=== PATIENT | female | born 1975 | race Caucasian/White ===

== ENCOUNTER → 2016-08-05 | Outpatient (REF) | payer OTHER ==
[2016-08-05 11:42] LABS: INR 1.68
== END ==
LOC: M SFHCCLAY 09:14
PROVIDERS: ATTEND Family Medicine
DX: Z86.718 Personal history of other venous thrombosis and embolism (principal); Z79.01 Long term (current) use of anticoagulants

== ENCOUNTER 2016-09-08 21:31 | Inpatient (IN) | payer OTHER ==
[~2016-09-08] VITALS: Ht 154.9 cm; Wt 91.5 kg
[2016-09-08] MEDS ORDERED: KETOROLAC 30 MG/ML VIAL (J1885) As Ordered ONE (23:23)
[2016-09-08 23:36] LABS: MEAN CORPUSCULAR HEMOGLOBIN 31.7 pg (27.0-33.0); MEAN CORPUSCULAR HGB CONC 34.4 g/dl (32.0-36.5); MEAN CORPUSCULAR VOLUME 92.1 fl (80.0-96.0); RED CELL DISTRIBUTION WIDTH 11.7 % (11.5-14.5); WHITE BLOOD COUNT 9.1 K/mm3 (4.0-10.0)
[2016-09-08 23:46] LABS: INR 2.56
[2016-09-09 00:23] LABS: ANION GAP 7 MEQ/L (8-16); BLOOD UREA NITROGEN 6 MG/DL (7-18); CALCIUM LEVEL 8.5 MG/DL (8.5-10.1); CARBON DIOXIDE LEVEL 25 MEQ/L (21-32); CHLORIDE LEVEL 111 MEQ/L (98-107); CREATININE FOR GFR 0.66 MG/DL (0.55-1.02); GLOMERULAR FILTRATION RATE > 60.0 (>58); GLUCOSE, FASTING 87 MG/DL (70-105); SODIUM LEVEL 143 MEQ/L (136-145)
[2016-09-09 01:10] LABS: AMPHETAMINES LEVEL URINE NEGATIVE (NEGATIVE); BENZODIAZEPINES URINE NEGATIVE (NEGATIVE); COCAINE METABOLITE URINE NEGATIVE (NEGATIVE); CONTROL LINE INT CTR LINE PRESENT; METHADONE URINE NEGATIVE (NEGATIVE); OPIATES URINE NEGATIVE (NEGATIVE); TRICYCLIC ANTIDEPRESS URINE NEGATIVE (NEGATIVE)
[2016-09-09] MEDS: LIDOCAINE 5% OINT 30 GM TOP SCH ×2 (01:30→11:13)
[2016-09-09] MEDS ORDERED: ONDANSETRON 4MG/2ML VIAL (J2405) IV PRN (01:30)
[2016-09-09] MEDS ORDERED: WARF-20 PO (01:34)
[2016-09-09] MEDS ORDERED: SIMV40TA2 PO (01:34)
[2016-09-09] MEDS ORDERED: WARF4TAB52 PO (01:35)
[2016-09-09] MEDS ORDERED: WARF-60 PO (01:35)
[2016-09-09] MEDS ORDERED: CLON1TAB PO (01:38)
[2016-09-09] MEDS ORDERED: CLON0.5T PO (01:38)
[2016-09-09] MEDS ORDERED: VENL75CA47 PO (01:38)
--- NOTE | 2016-09-09 01:39 | REP ---
Clinical: Chest pain. Pre admission . Technique: PA and lateral. Comparison: None . Findings: The mediastinum and cardiothymic silhouette are normal. The lung volumes are symmetric and normal. No acute consolidation, effusion, or pneumothorax. Skeletal structures are intact and normal for age. Impression: Normal chest x-ray. No focal consolidation. Signed by Reid Macedo MD 09/09/2016 01:31 A
[2016-09-09] MEDS ORDERED: VITA100066 PO (01:40)
[2016-09-09] MEDS ORDERED: VITA10002 PO (01:40)
[2016-09-09] MEDS ORDERED: BACL-67 PO (01:40)
[2016-09-09] MEDS ORDERED: ENAL10TA2 PO (01:40)
[2016-09-09] MEDS ORDERED: LR 1,000 ML IV SCH (01:45)
[2016-09-09] MEDS ORDERED: MORPHINE 2 MG/ML 1ML SYRINGE As Ordered ONE (02:30)
--- NOTE | 2016-09-09 02:56 | EDDOCDS ---
[facility]urse[facility] Name: Katrin Rice Age: 41 yrs Sex: Female : 1975 Arrival Date: 09/08/2016 Time: 21:31 Bed 12 Private MD: Diagnosis: Limitation of activities due to disability;Other chronic pain Presentation: 09/08 21:35 Presenting complaint: EMS states: Patient injured her back in 2008 moving a person in [facility] bed. She moved here from [place] as no longer seeing physician there. Now seeing Dr. Powell here through [facility]. States she was walking yesterday but unable to get out of bed today. States she has not eaten in 5 days. Pain is unbearable according to patient. History of herniated discs and fractured lower back as well as disc spurs. Acute neurological deficits are not present. Mechanism of Injury: No Mechanism of Injury. Adult Sepsis Screening: The patient does not have new or worsening altered mentation. Patient's respiratory rate is less than 22. Systolic blood pressure is greater than 100. Patient has a qSOFA score of 0- Negative Sepsis Screen. Suicide/Homicide risk assessment- the patient denies having any suicidal and/or homicidal ideations and does not present with any other emotional, behavioral or mental health complaints. Status: Patient is not a guest service team leader or dependent. Transition of care: patient was not received from another setting of care. 21:35 Acuity: BILL Level 3 [facility] 21:35 Method Of Arrival: Ambulance [facility] Triage Assessment: 21:45 General: Appears in no apparent distress, uncomfortable, well nourished, well groomed, [facility] Behavior is appropriate for age, cooperative. Pain: Location: left lower back, right lower back and left gluteal fold Pain currently is 10 out of 10 on a pain scale. Pain radiates to left leg. Pt Declines HIV testing. Neurological: Level of Consciousness is awake, alert, Oriented to person, place, time. Cardiovascular: Capillary refill < 3 seconds Heart tones S1 S2 present Rhythm is sinus rhythm No ectopy. Respiratory: Airway is patent Respiratory effort is even, unlabored, Respiratory pattern is regular, symmetrical, Breath sounds are clear bilaterally. Derm: Skin is intact, Skin is dry, Skin is pink, warm & dry. Skin temperature is warm. Musculoskeletal: Circulation, motion, and sensation intact Capillary refill < 3 seconds Range of motion limited in enitre lower back region. Injury Description: No known injury. SOFTWARE SUPPORT REPRESENTATIVE: 09/09 02:44 LMP 09/09/2016 nn1 Historical: - Allergies: Hydrocodone-Acetaminophen; Augmentin; Methadone; Nucynta; Prednisone; Fentanyl; Percocet; - Home Meds: 1. simvastatin 40 mg Oral tab once daily 2. warfarin 5 mg Oral tab 1 tab once daily 3. venlafaxine 75 mg oral cp24 1 cap once daily 4. clonazepam 0.5 mg Oral tab 1 tab 3 times per day 5. enalapril maleate 10 mg Oral tab 1 tab once daily 6. baclofen 20 mg Oral tab 1 tab 3 times per day - PMHx: Anxiety; Hypercholesterolemia; Chronic Back pain; fractured lower back; herniated discs; disc spurs; - Social history: Smoking status: Patient uses tobacco products, heavy tobacco smoker. No barriers to communication noted, The patient speaks fluent Swedish. - Family history: Not pertinent. - : The pt / caregiver states he / she is on anticoagulants: coumadin. Home medication list is obtained from the patient. - Exposure Risk Screening:: None identified. Screenin/06 21:49 Screening information is obtained from the patient. Fall risk: No risks identified. kas2 Assistance ADL's: requires no assistance with activities of daily living. Abuse/DV Screen: The patient / caregiver reports he/she is: not in a situation that causes fear, pain or injury. Nutritional screening: No deficits noted. Advance Directives: Currently, there is no health care proxy. There is no active DNR order. There is no living will. There is no Power of Oracle Solutions Architect. home support is adequate. Assessment: 21:48 General: See triage note. kas2 22:54 General: Appears in no apparent distress, uncomfortable, Behavior is appropriate for kas2 age, cooperative. Pain: Location: left leg and buttocks and left gluteal fold and right lower back and left lower back Pain currently is 10 out of 10 on a pain scale. Neurological: Level of Consciousness is awake, alert, Oriented to person, place, time. Respiratory: Airway is patent Respiratory effort is even, unlabored, Respiratory pattern is regular, symmetrical. Derm: Skin is intact, Skin is dry, Skin is pink, warm & dry. Skin temperature is warm. 09/09 00:11 General: Patient laying in bed. No apparent distress noted at this time. Patient states kas2 back pain is 5/10 when not moving but remains a 10/10 with movement. Call martinez within reach. Will continue to monitor.. 00:15 General: Dr. Kenny in to reassess patient at this time.. kas2 00:52 General: Performed I/O catheter on patient to obtain urine. Patient tolerated procedure [facility] well. Sent urine to lab.. 01:41 General: Appears in no apparent distress, uncomfortable, Behavior is appropriate for [facility] age, cooperative. Pain: Location: left leg and buttocks and left gluteal fold and right lower back and left lower back Pain currently is 6 out of 10 on a pain scale. Neurological: Level of Consciousness is awake, alert, Oriented to person, place, time. Respiratory: Airway is patent Respiratory effort is even, unlabored, Respiratory pattern is regular, symmetrical. Derm: Skin is intact, Skin is dry, Skin is pink, warm & dry. Skin temperature is warm. Musculoskeletal: Circulation, motion, and sensation intact Capillary refill < 3 seconds Range of motion limited in left leg and buttocks and left gluteal fold and right lower back and left lower back. 02:18 General: Patient sleeping at this time. No apparent distress. Appears comfortable. kas2 Airway patent and respiratory effort and even and unlabored. Call martinez within reach. Will continue to monitor.. Vital Signs: 09/08 21:42 BP 138 / 70; Pulse 70; Resp 18; Temp 98.4; Pulse Ox 98% ; Weight 77.11 kg; Height 5 ft. [facility] 1 in. (154.94 cm); Pain 10/10; 09/09 01:42 BP 142 / 75; Pulse 75; Resp 18; Temp 98.0(O); Pulse Ox 99% on R/A; Pain 6/10; kas2 02:26 BP 107 / 66; Pulse 56; Resp 18; Temp 98.5; Pulse Ox 95% on R/A; Pain 6/10; kas2 09/08 21:42 Body Mass Index 32.12 (77.11 kg, 154.94 cm) [facility] Vitals: 02:22 Log In Time N/A - ambulance arrival. [facility] ED Course: 09/08 21:32 Patient visited by McLear, Celeste, 8TH GRADE MATHEMATICS TEACHER. tmm1 21:32 Patient moved to Waiting tmm1 21:33 Vivian Mishra RN is Primary Nurse. tmm1 21:33 Ene Guido RN is Primary Nurse. tmm1 21:33 Samuel Kenny DO is Attending Physician. cs11 21:33 Patient visited by Samuel Kenny DO. cs11 21:33 Patient moved to 12 tmm1 21:40 Triage Initiated kas2 21:44 Patient visited by Ene Guido RN. kas2 21:49 Patient visited by Ene Guido RN. kas2 22:23 Patient visited by Ene Guido RN. kas2 22:55 Patient visited by Ene Guido RN. kas2 23:33 Pt & Aptt Sent. kas2 23:33 MED Profile Sent. kas2 23:33 CBC Sent. kas2 23:34 Patient visited by Ene Guido RN. kas2 23:34 Labs drawn. (by ED staff). Sent per order to lab. kas2 23:38 Patient visited by Ene Guido RN. kas2 23:57 Primary Nurse role handed off by Vivian Mishra RN jaden 02/07 00:12 Patient visited by Ene Guido RN. kas2 00:34 Patient visited by Ene Guido RN. kas2 00:53 Patient visited by Ene Guido RN. kas2 00:53 Urine Toxicology Sent. kas2 00:53 Urine collected. straight cath specimen. Urine specimen sent to lab. kas2 00:57 Nicky Rey is Hospitalizing Provider. cs11 01:40 Patient name changed from Katrin\S\R\S\Woodridge\S\ to Katrin\S\Josey\S\Woodridge. EDMS 01:40 [facility] Payment Agreement was scanned into [employer] and attached to record. pm4 01:42 Patient visited by Ene Guido RN. kas2 02:05 Chest, 1 View Returned. EDMS 02:22 The patient / caregiver is instructed regarding the plan of care and ED course. kas2 02:22 No IV's were initiated during this patient's visit. No procedures done that require kas2 assistance. 02:23 Patient visited by Ene Guido RN. kas2 02:24 Patient visited by Ene Guido RN. kas2 02:37 Inserted saline lock: 20 gauge in left antecubital area The patient tolerated the kas2 procedure well. 02:42 Patient visited by Ene Guido RN. kas2 Administered Medications: 09/08 23:33 Drug: ketorolac 60 mg [ketorolac 30 mg/mL (1 mL) injection solution (2 mL)] Route: IM; kas2 Site: right deltoid; Order Results: Lab Order: CBC; [facility] 09/08/16 23:31 Test: WHITE BLOOD COUNT; Value: 9.1; Range: 4.0-10.0; Units: K/mm3; Status: F Test: RED BLOOD COUNT; Value: 4.50; Range: 4.00-5.40; Units: M/mm3; Status: F Test: HEMOGLOBIN; Value: 14.3; Range: 12.0-16.0; Units: g/dl; Status: F Test: HEMATOCRIT; Value: 41.4; Range: 36.0-47.0; Units: %; Status: F Test: MEAN CORPUSCULAR VOLUME; Value: 92.1; Range: 80.0-96.0; Units: fl; Status: F Test: MEAN CORPUSCULAR HEMOGLOBIN; Value: 31.7; Range: 27.0-33.0; Units: pg; Status: F Test: MEAN CORPUSCULAR HGB CONC; Value: 34.4; Range: 32.0-36.5; Units: g/dl; Status: F Test: RED CELL DISTRIBUTION WIDTH; Value: 11.7; Range: 11.5-14.5; Units: %; Status: F Test: PLATELET COUNT, AUTOMATED; Value: 238; Range: 150-450; Units: k/mm3; Status: F Lab Order: MED Profile; [facility] 09/08/16 23:31 Test: GLUCOSE, FASTING; Value: 87; Range: 70-105; Units: MG/DL; Status: F Test: BLOOD UREA NITROGEN; Value: 6; Range: 7-18; Abnormal: Below low normal; Units: MG/DL; Status: F Test: CREATININE FOR GFR; Value: 0.66; Range: 0.55-1.02; Units: MG/DL; Status: F Test: GLOMERULAR FILTRATION RATE; Value: > 60.0; Range: >58; Status: F Test: SODIUM LEVEL; Value: 143; Range: 136-145; Units: MEQ/L; Status: F Test: POTASSIUM SERUM; Value: 4.0; Range: 3.5-5.1; Units: MEQ/L; Status: F Test: CHLORIDE LEVEL; Value: 111; Range: 98-107; Abnormal: Above high normal; Units: MEQ/L; Status: F Test: CARBON DIOXIDE LEVEL; Value: 25; Range: 21-32; Units: MEQ/L; Status: F Test: ANION GAP; Value: 7; Range: 8-16; Abnormal: Below low normal; Units: MEQ/L; Status: F Test: CALCIUM LEVEL; Value: 8.5; Range: 8.5-10.1; Units: MG/DL; Status: F Test Note: ; Units are mL/min/1.73 m2 Chronic Kidney Disease Staging per NKF: Stage I & II GFR >=60 Normal to Mildly Decreased Stage III GFR 30-59 Moderately Decreased Stage IV GFR 15-29 Severely Decreased Stage V GFR <15 Very Little GFR Left ESRD GFR <15 on LEVELING MACHINE OPERATOR Lab Order: Pt & Aptt; SPEC'09/08/16 23:31 Test: PROTHROMBIN TIME; Value: 27.6; Range: 12.3-14.5; Abnormal: Above high normal; Units: SECONDS; Status: F Test: INR; Value: 2.56; Status: F Test: PARTIAL THROMBOPLASTIN TIME; Value: 40.5; Range: 26.6-37.1; Abnormal: Above high normal; Units: SECONDS; Status: F Test Note: ; THERAPUTIC HUMAN INR VALUES INDICATIONS NORMAL RANGES PROPHYLAXIS/TREATMENT OF: VENOUS THROMBOSIS 2.0-3.0 PULMONARY EMBOLISM 2.0-3.0 PREVENTION OF SYSTEMIC EMBOLISM FROM: TISSUE HEART VALVES 2.0-3.0 ACUTE MYOCARDIAL INFARCTION 2.0-3.0 VALVULAR HEART DISEASE 2.0-3.0 ATRIAL FIBRILLATION 2.0-3.0 MECHANICAL VALVES(HIGH RISK) 2.5-3.5 RECURRENT MYOCARDIAL INFARCTION 2.5-3.5 Lab Order: Urine Toxicology; SPEC'09/09/16 00:51 Test: AMPHETAMINES LEVEL URINE; Value: NEGATIVE; Range: NEGATIVE; Status: F Test: BARBITURATES URINE; Value: NEGATIVE; Range: NEGATIVE; Status: F Test: BENZODIAZEPINES URINE; Value: NEGATIVE; Range: NEGATIVE; Status: F Test: CANNABINOIDS URINE; Value: NEGATIVE; Range: NEGATIVE; Status: F Test: COCAINE METABOLITE URINE; Value: NEGATIVE; Range: NEGATIVE; Status: F Test: METHADONE URINE; Value: NEGATIVE; Range: NEGATIVE; Status: F Test: OPIATES URINE; Value: NEGATIVE; Range: NEGATIVE; Status: F Test: TRICYCLIC ANTIDEPRESS URINE; Value: NEGATIVE; Range: NEGATIVE; Status: F Test Note: ; ALL PRESUMPTIVE POSITIVE FINDINGS ARE UNCONFIRMED NORMAL VALUES THRESHOLD IN NG/ML AMPHETAMINES 1000 METHAMPHETAMINES 1000 BARBITURATES 300 BENZODIAZEPINES 300 CANNABINOIDS (THC) 50 COCAINE METABOLITE 300 METHADONE 300 OPIATES 300 PHENCYCLIDINE 25 TRICYCLIC ANTIDEPRESSANTS 1000 RESULTS ARE FOR MEDICAL PURPOSES ONLY. ALL URINE SPECIMENS WILL BE SAVED FOR 3 DAYS. IF CONFIRMATION OF A PRESUMPTIVE POSTIVE SCREEN RESULT IS DESIRED, CALL CHEMISTRY ([phone]) AND REQUEST URINE TO BE SENT TO REFERENCE LAB. FOR A LIST OF CLOSELY RELATED COMPOUNDS PLEASE CALL THE LAB. Lab Order: LIPASE; SPEC'M 09/08/16 23:31 Test: LIPASE; Value: 66; Range: 73-393; Abnormal: Below low normal; Units: U/L; Status: F Radiology Order: Chest, 1 View Test: Chest, 1 View REASON FOR EXAMINATION: admission; Clinical: Chest pain. Pre admission .; Technique: PA and lateral.; ; Comparison: None .; ; Findings:; The mediastinum and cardiothymic silhouette are normal. The lung volumes are; symmetric and normal. No acute consolidation, effusion, or pneumothorax.; Skeletal structures are intact and normal for age.; ; Impression:; Normal chest x-ray.; No focal consolidation.; ; ; Signed by; Reid Macedo MD 09/09/2016 01:31 A; Outcome: 09/09 00:58 Decision to Hospitalize by Provider. 11 02:21 Discharge Assessment: patient administered narcotics - no. The following High Risk [facility] Discharge criteria are identified: None. Admitted to Med/Surg accompanied by tech, via stretcher, with chart. Condition: stable. CT Study completed. Property :Personal belongings accompany Pt. 02:56 Patient left the ED. [facility] Signatures: Dispatcher [employer] EDMS Vandana Guzmán, 8TH GRADE MATHEMATICS TEACHER 8TH GRADE MATHEMATICS TEACHER Samuel Beltrán, DO DO cs11 Celeste Drew, 8TH GRADE MATHEMATICS TEACHER 8TH GRADE MATHEMATICS TEACHER tmm1 Kolton Bird,RN RN nn1 Ene Guido,RN RN kas2 Ezequiel Robles, Reg Reg pm4 MTDD
--- NOTE | 2016-09-09 02:56 | EDDOCDS ---
Physician Documentation [facility] Name: Katrni Rice Age: 41 yrs Sex: Female : 1975 Arrival Date: 09/08/2016 Time: 21:31 Bed 12 Private MD: Disposition: 09/09/16 00:58 Hospitalization ordered by Nicky Rey for Inpatient Admission. Preliminary diagnosis are Limitation of activities due to disability, Other chronic pain. - Bed requested for 5 Hart. - Status is Inpatient Admission. kas2 - Condition is Stable. - Problem is chronic. - Symptoms are unchanged. Historical: - Allergies: Hydrocodone-Acetaminophen; Augmentin; Methadone; Nucynta; Prednisone; Fentanyl; Percocet; - Home Meds: 1. simvastatin 40 mg Oral tab once daily 2. warfarin 5 mg Oral tab 1 tab once daily 3. venlafaxine 75 mg oral cp24 1 cap once daily 4. clonazepam 0.5 mg Oral tab 1 tab 3 times per day 5. enalapril maleate 10 mg Oral tab 1 tab once daily 6. baclofen 20 mg Oral tab 1 tab 3 times per day - PMHx: Anxiety; Hypercholesterolemia; Chronic Back pain; fractured lower back; herniated discs; disc spurs; - Social history: Smoking status: Patient uses tobacco products, heavy tobacco smoker. No barriers to communication noted, The patient speaks fluent Arabic. - Family history: Not pertinent. - : The pt / caregiver states he / she is on anticoagulants: coumadin. Home medication list is obtained from the patient. - Exposure Risk Screening:: None identified. LITHOGRAPH DESIGNER: 09/09 02:44 LMP 09/09/2016 nn1 Vital Signs: 09/08 21:42 BP 138 / 70; Pulse 70; Resp 18; Temp 98.4; Pulse Ox 98% ; Weight 77.11 kg / 170 lbs; kas2 Height 5 ft. 1 in. (154.94 cm); Pain 10/; 09/09 01:42 BP 142 / 75; Pulse 75; Resp 18; Temp 98.0(O); Pulse Ox 99% on R/A; Pain 6/10; kas2 02:26 BP 107 / 66; Pulse 56; Resp 18; Temp 98.5; Pulse Ox 95% on R/A; Pain 6/10; kas2 09/08 21:42 Body Mass Index 32.12 (77.11 kg, 154.94 cm) kas2 MDM: 09/08 23:20 ketorolac 60 mg IM once ordered. cs11 23:20 CBC Ordered. EDMS 23:20 MED Profile Ordered. EDMS 23:21 Pt & Aptt Ordered. EDMS 23:22 Chest, 1 View Ordered. EDMS 0207 00:28 Pt & Aptt Reviewed. cs11 00:28 CBC Reviewed. cs11 00:32 Urine Toxicology Ordered. EDMS 01:02 BED REQUEST+ADM ordered. EDMS 01:09 Financial registration complete. pm4 01:30 MRI Spine,Cervical without con Ordered. EDMS 01:31 MRI Spine,Thoracic without con Ordered. EDMS 01:31 MRI Spine, L.S. without con Ordered. EDMS 01:31 PHYSICAL THERAPY EVAL & TREAT ordered. EDMS 01:32 Admission / Observation Status ordered. EDMS 01:32 REGULAR DIET ordered. EDMS 01:40 LIPASE Ordered. EDMS 01:40 [facility] [place] Agreement was scanned into [employer] and attached to record. pm4 Administered Medications: 09/08 23:33 Drug: ketorolac 60 mg [ketorolac 30 mg/mL (1 mL) injection solution (2 mL)] Route: IM; kas2 Site: right deltoid; Signatures: Dispatcher [employer] [facility] Laura Conklin, RN RN km10 Samuel Kenny, DO cs11 Wagner Drewsa, SENIOR CONTROLS ANALYST SENIOR CONTROLS ANALYST tmm1 Ene Guido RN RN kas2 Ezequiel Rboles, Reg Reg pm4 The chart was reviewed and I authenticate all verbal orders and agree with the evaluation and treatment provided.Corrections: (The following items were deleted from the chart) 09/09 01:40 01:30 LIPASE ordered. EDMS EDMS Attachments: 01:40 [facility] [place] Agreement pm4 MTDD
[2016-09-09 03:00] VITALS: BP 139/69
[2016-09-09] MEDS: clonazePAM 1 MG TAB PO SCH ×3 (05:28→16:00)
[2016-09-09 06:00] VITALS: BP 118/74
--- NOTE | 2016-09-09 06:18 | ECGEPIP ---
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
[2016-09-09 07:07] LABS: MEAN CORPUSCULAR HEMOGLOBIN 31.9 pg (27.0-33.0); MEAN CORPUSCULAR HGB CONC 34.6 g/dl (32.0-36.5); MEAN CORPUSCULAR VOLUME 92.3 fl (80.0-96.0); RED CELL DISTRIBUTION WIDTH 11.9 % (11.5-14.5); WHITE BLOOD COUNT 9.2 K/mm3 (4.0-10.0)
[2016-09-09 07:12] LABS: INR 2.81
[2016-09-09 07:19] LABS: ANION GAP 8 MEQ/L (8-16); BLOOD UREA NITROGEN 7 MG/DL (7-18); CALCIUM LEVEL 8.2 MG/DL (8.5-10.1); CARBON DIOXIDE LEVEL 26 MEQ/L (21-32); CHLORIDE LEVEL 109 MEQ/L (98-107); CREATININE FOR GFR 0.64 MG/DL (0.55-1.02); GLOMERULAR FILTRATION RATE > 60.0 (>58); GLUCOSE, FASTING 93 MG/DL (70-105); POTASSIUM SERUM 3.6 MEQ/L (3.5-5.1); SODIUM LEVEL 143 MEQ/L (136-145)
[2016-09-09 09:00] VITALS: BP 95/55
[2016-09-09] MEDS: PANTOPRAZOLE 40MG TAB (PROTONIX) PO SCH (09:00)
[2016-09-09] MEDS ORDERED: ENALAPRIL MALEATE 10 MG TAB PO SCH (09:00)
[2016-09-09] MEDS: SENOKOT S TAB PO SCH ×2 (09:00→21:01)
--- NOTE | 2016-09-09 09:13 | HPE ---
DATE OF ADMISSION: 09/09/2016 PRIMARY CARE PROVIDER: Keaton Donovan MD ORTHOPEDIC SURGEON: Vance Gallardo MD CHIEF COMPLAINT: Back pain. HISTORY OF PRESENT ILLNESS: This is a 41-year-old female patient with underlying medical history of anxiety, dyslipidemia, hypertension, chronic lower back pain with herniated disc who presented with progressive worsening back pain. 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 Subsequently, she originally lived in [place] and has been seen by a doctor named Dr. Edward Martinez, and has also been seen by pain management by Dr. Jaime Acevedo as of November 2015. The pain management doctor for the patient has been arrested and subsequently patient was in the process of moving to [facility] in March and April. Subsequently, she was not able to get a pain management doctor in [place] but when she arrived near [place] in [place] she was referred to Dr. Vance Gallardo, orthopedic surgery and subsequently Dr. Vance Gallardo has referred the patient to pain management, Dr. Lundberg. The patient has not had a chance to see Dr. Lundberg yet but over the past two days the patient's pain has progressively been worsened. Baseline ambulating became minimal but over the past two days the pain was so bad that she was not able to ambulate, had poor by mouth intake, was on the bed for about 20 hours a day as per a friend. The patient reported left sided back pain, left sided lumbothoracic back pain that sometimes moves around involving her left buttocks and contributing to her left lower extremity weakness. The patient had a MRI done previously. Dr. Gallardo has stated that no surgical intervention is indicated in this case. Furthermore, the patient has a history of protein C deficiency with pulmonary embolus (PE) and deep venous thrombosis (DVT) and is on Coumadin chronically. The patient denies any fevers, does feel a chill. Denies any chest pain, pressure or discomfort. Denies any nausea or vomiting. The patient last received opiate August 26 from the emergency room and has not been using any street drugs for her pain. ALLERGIES: AUGMENTIN, FENTANYL, HYDROCODONE, ACETAMINOPHEN, PERCOCET, METHADONE, NUCYNTA and PREDNISONE. PAST MEDICAL HISTORY: 1. Protein C deficiency. 2. PE. 3. DVT. 4. Anxiety. 5. Dyslipidemia. 6. Chronic back pain. 7. Fracture of lower back. 8. Herniated disc. 9. Disc spur. PAST SURGICAL HISTORY: None. SOCIAL HISTORY: The patient smokes ten cigarettes per day for 25 years. No alcohol use. FAMILY HISTORY: Noncontributory. REVIEW OF SYSTEMS: Negative except for those mentioned in the history of present illness (HPI). The patient also reported gastric discomfort. HOME MEDICATION: - Zocor 40 mg by mouth daily - Coumadin 5 mg by mouth daily - Effexor 75 mg by mouth daily - clonazepam 0.5 mg by mouth three times a day - enalapril 10 mg by mouth daily - baclofen 20 mg by mouth three times a day PHYSICAL EXAMINATION: VITAL SIGNS: Blood pressure 138/70, pulse 70, respirations 18, temperature 98.4, pulse oximetry 98%. GENERAL: The patient is alert and oriented times three, in no acute distress. HEENT: Normocephalic atraumatic. PULMONARY: Bilaterally clear to auscultation. CARDIAC: Regular rate and rhythm, normal S1, S2. ABDOMEN: Soft, nontender, nondistended, positive bowel sounds. EXTREMITIES: No edema bilateral lower extremities. Left lower extremity slightly weaker possibly due to poor effort as well. BACK: Point tenderness along the left side of the thoracic and lumbar back. RECTAL TONE: Intact. Urine toxicology (U-TOX) negative. INR 2.56. LABORATORY DATA: WBC 9.1, hemoglobin 14.3, hematocrit 41.4, platelets 238. Chemistries: Sodium 143, potassium 4, chloride 111, bicarbonate 25, BUN 6, creatinine 0.66. Chest x-ray was within normal limits. ASSESSMENT AND PLAN: This is a 41-year-old female patient with underlying medical history of protein C deficiency, pulmonary embolus (PE), deep venous thrombosis (DVT), anxiety, dyslipidemia, chronic back pain with herniated disc who was admitted for progressive worsening back pain and inability to ambulate. PROBLEMS: 1. Progressive worsening lower back pain, inability to ambulate. The patient was previously evaluated as per patient by Dr. Vance Gallardo and as per patient Dr. Gallardo has mentioned there is no surgical intervention for the patient. Pain management consulted. Urinary toxicology is appreciated. I-STOP report has been forwarded with I-STOP reference number of [id number]. Followup erythrocyte sedimentation rate (ESR), C-reactive protein (CRP), MRI of the cervical, thoracic, lumbar spine. Pain management consulted. Lidocaine ointment, intravenous (IV) morphine for now. Continue baclofen. Further pain management recommendation as per pain management. 2. Anxiety. Continue home medication. Monitor for withdrawal. 3. Dyslipidemia. Continue statin. 4. Hypertension. Continue home medication. 5. History of protein C deficiency with deep venous thrombosis (DVT) and pulmonary embolus. Continue Coumadin. INR therapeutic. Continue to monitor. 6. DVT prophylaxis. The patient on Coumadin with therapeutic INR. DISPOSITION: Pending MRI, pain management, physical therapy.
[2016-09-09] MEDS: MORPHINE 2 MG/ML 1ML SYRINGE IV PRN ×3 (09:39→21:01)
[2016-09-09] MEDS: NICOTINE 7 MG/24 HR TRANSDERMAL TD SCH (11:12)
[2016-09-09] MEDS: BACLOFEN 10 MG TAB PO SCH ×3 (11:13→21:01)
[2016-09-09] MEDS: CYANOCOBALAMIN 500 MCG TAB PO SCH (11:13)
[2016-09-09] MEDS: VITAMIN D 1,000 INTERNATIONAL UNITS TABLET PO SCH (11:14)
[2016-09-09] MEDS ORDERED: SODIUM CHLORIDE 0.9% 1000 ML IV ONE ×3 (11:45→14:30)
[2016-09-09] MEDS ORDERED: WARFARIN SOD 4 MG TAB PO SCH (17:00)
[2016-09-09 21:00] VITALS: O2SAT 98
[2016-09-09] MEDS: SIMVASTATIN 40 MG TAB PO SCH (21:01)
[2016-09-09] MEDS: clonazePAM 0.5 MG TAB PO SCH (21:02)
[2016-09-09] MEDS: VENLAFAXINE **XR** 75MG CAPSULE PO SCH (21:02)
[2016-09-09 22:00] VITALS: BP 112/55
[2016-09-10] MEDS: MORPHINE 2 MG/ML 1ML SYRINGE IV PRN ×8 (02:02→21:33)
[2016-09-10] MEDS: clonazePAM 1 MG TAB PO SCH ×3 (04:42→16:35)
[2016-09-10 06:00] VITALS: BP 112/70
[2016-09-10 06:50] LABS: MEAN CORPUSCULAR HEMOGLOBIN 32.1 pg (27.0-33.0); MEAN CORPUSCULAR HGB CONC 34.1 g/dl (32.0-36.5); MEAN CORPUSCULAR VOLUME 94.2 fl (80.0-96.0); RED CELL DISTRIBUTION WIDTH 11.9 % (11.5-14.5); WHITE BLOOD COUNT 10.1 K/mm3 (4.0-10.0)
[2016-09-10 06:52] LABS: ANION GAP 7 MEQ/L (8-16); BLOOD UREA NITROGEN 12 MG/DL (7-18); CALCIUM LEVEL 8.3 MG/DL (8.5-10.1); CARBON DIOXIDE LEVEL 25 MEQ/L (21-32); CHLORIDE LEVEL 113 MEQ/L (98-107); CREATININE FOR GFR 0.65 MG/DL (0.55-1.02); GLOMERULAR FILTRATION RATE > 60.0 (>58); GLUCOSE, FASTING 107 MG/DL (70-105); MAGNESIUM LEVEL 1.9 MG/DL (1.8-2.4); SODIUM LEVEL 145 MEQ/L (136-145)
[2016-09-10 06:54] LABS: INR 1.78
--- NOTE | 2016-09-10 07:43 | IPN ---
DATE: 09/10/2016 Patient seen and examined at bedside. Chart has been reviewed. This morning, patient complains of a sore throat. No fever, no chills, no cough. No sinus tenderness or rhinorrhea or post nasal drip. She also continually complains of lower back pain around L2-L3 area with radiation down the left lower extremity to the knee described as sharp and "electricity like", on and off but persistent. Yesterday not permitting her to sleep more than 1-2 hours at night. She denies any constipation, urine retention. She denies any weakness in lower extremity. Complains of pain and difficulty ambulating secondary to pain. Temperature 96.5, pulse 52, respiratory rate 18, blood pressure 112/70, 98% on room air. Lungs are clear to auscultation, no wheezing, rales or rhonchi. Heart: S1, S2, sinus rhythm. Abdomen: Soft, nontender, nondistended, positive bowel sounds. Extremities: No cyanosis, clubbing or pitting edema. Neurologically, patient has point tenderness along the left side of the L2-L3 area. Straight leg test could not be performed due to severe pain. Left lower extremity is 4/5 motor function. Gait was not tested. Diminished sensation left lower extremity. Rectal tone was intact per Dr. Nicky Rey, on 09/09/2016. LAB DATA: CBC, metabolic panel have been reviewed. ASSESSMENT AND PLAN: This is a 41-year-old female with history of chronic back pain, protein C deficiency, pulmonary embolus (PE), deep venous thrombosis (DVT) , on chronic Coumadin, anxiety, dyslipidemia, herniated disc and disc spurring, presented to the emergency room with intractable back pain on 09/09/2016, admitted for pain control. She had been previously evaluated by Dr. Vance Gallardo , orthopedic surgery, who referred her to pain management, Dr. Lundberg. Patient has not seen Dr. Lundberg as the pain has worsened. Her previous pain management physician lives in [place] named Dr. Edward Martinez and Dr. Goodson November 2015 is moving to [place]. Patient has not had a physician managing her pain. CURRENT ISSUES: 1. Hypotension most likely secondary to pain medications, resolved with intravenous fluids. Patient has had no infectious etiology, has had no fever or increased white count. 2. Progressive worsening low back pain, inability to ambulate, intractable. Patient has an MRI of the cervical, thoracic, lumbar spine which could not be performed yesterday due to low blood pressure in the ED from medications. Will continue today. Patient has been referred to pain management in house. A second request will be made today. 3. Anxiety. Continue home medications. Monitor for withdrawals. 4. Dyslipidemia, on statin. 5. Hypertension, home medication. 6. History of protein C deficiency. 7. History of deep venous thrombosis (DVT), pulmonary embolus (PE) on Coumadin. INR was 2.77 yesterday. Current INR is 1.78. Will provide with bridge therapy with Lovenox and Coumadin. MTDD
[2016-09-10] MEDS: CYANOCOBALAMIN 500 MCG TAB PO SCH (08:02)
[2016-09-10] MEDS: BACLOFEN 10 MG TAB PO SCH ×3 (08:02→21:03)
[2016-09-10] MEDS: ENOXAPARIN 80 MG/0.8 ML SYRINGE (J1650) SC SCH ×3 (08:03→21:02)
[2016-09-10] MEDS: SENOKOT S TAB PO SCH ×2 (08:03→21:03)
[2016-09-10] MEDS: PANTOPRAZOLE 40MG TAB (PROTONIX) PO SCH (08:03)
[2016-09-10] MEDS: VITAMIN D 1,000 INTERNATIONAL UNITS TABLET PO SCH (08:03)
[2016-09-10] MEDS: LIDOCAINE 5% OINT 30 GM TOP SCH (08:04)
[2016-09-10] MEDS: NICOTINE 7 MG/24 HR TRANSDERMAL TD SCH (08:04)
[2016-09-10] MEDS ORDERED: CEPACOL LOZENGE PO ONE (08:15)
--- NOTE | 2016-09-10 11:44 | REP ---
MRI CERVICAL SPINE WITHOUT CONTRAST: HISTORY: Back pain. The examination is limited secondary to motion. A disc bulge is present at the C3-4 level. There is minimal effacement of the thecal sac without spinal cord compression. Bilateral uncinate process hypertrophy is present. This produces mild narrowing of the C3 neural foramina. A disc bulge is present at the C5-6 level. There is mild effacement of the thecal sac without spinal cord compression. Uncinate process hypertrophy is present on the right. This produces mild narrowing of the right C5 neural foramen. The left C5 neural foramen is patent. Uncinate process hypertrophy is present on the right at the C6-7 level. This produces mild narrowing of the right C6 neural foramen. The left C6 neural foramen is patent. There is no other disc bulge or herniation. The remaining neural foramina are patent. The spinal cord is normal in signal intensity. There is no intradural extramedullary lesion. Normal signal intensity is present in the cervical vertebral bodies. IMPRESSION: There is cervical spondylosis at the C3-4, C5-6 and C6-7 levels without spinal cord compression. Signed by Joshua Anderson MD 09/10/2016 11:53 A
--- NOTE | 2016-09-10 11:49 | REP ---
MRI THORACIC SPINE WITHOUT CONTRAST: HISTORY: Back pain. A disc bulge is present at the T9-10 level. There is minimal effacement of the thecal sac without spinal cord compression. The T9 neural foramina are patent. A disc bulge is present at the T10-11 level. There is hypertrophy of the ligamenta flava and posterior articulating facets. There is minimal effacement of the thecal sac without spinal cord compression. The T10 neural foramina are patent. A disc bulge is present at the T11-12 level. There is minimal effacement of the thecal sac without spinal cord compression. There is hypertrophy of the posterior articulating facets. The T11 neural foramina are patent. A disc bulge is present at the T12-L1 level. There is minimal effacement of the thecal sac without spinal cord compression. There is hypertrophy of the posterior articulating facets. The T12 neural foramina are patent. There is no other disc bulge or herniation. The remaining neural foramina are patent. The spinal cord is normal in signal intensity. There is no intradural extramedullary lesion. Increased signal intensity on T1 and T2-weighted images is present in the T10-T12 vertebral bodies. This represents fatty marrow replacement. Normal signal intensity is present in the remaining thoracic vertebral bodies. There is scoliosis of the upper and mid thoracic spine convex to the right and lower thoracic spine convex to the left. IMPRESSION: There are disc bulges at the T9-10 through T12-L1 levels without spinal cord compression. Signed by Joshua Anderson MD 09/10/2016 11:52 A
[2016-09-10] MEDS: CARBAMIDE PEROXIDE 6.5% OTIC SOLN 15ML AS SCH ×2 (11:55→21:07)
--- NOTE | 2016-09-10 12:25 | REP ---
MRI LUMBAR SPINE WITHOUT CONTRAST: HISTORY: Back pain. The examination is limited secondary to motion. Decreased signal intensity on T2-weighted images is present in the T12-L1 through L4-5 intervertebral discs. The discs are decreased in height. These findings are consistent with disc degeneration. A diffuse disc bulge is present at the L1-2 level. There is minimal compression of the thecal sac. There is hypertrophy of the posterior articulating facets. The L1 nerves exit the neural foramina without compression. A diffuse disc bulge is present at the L2-3 level. There is hypertrophy of the ligamenta flava and posterior articulating facets. These findings produce minimal central canal stenosis. There is compression of the right L2 nerve in the neural foramen. The left L2 nerve exits the neural foramen without compression. A diffuse disc bulge is present at the L3-4 level. There is hypertrophy of the ligamenta flava and posterior articulating facets. These findings produce mild central canal stenosis. There is compression of the L3 nerves in the neural foramina. A diffuse disc bulge is present at the L4-5 level. There is hypertrophy of the ligamenta flava and posterior articulating facets. These findings produce minimal central canal stenosis. There is compression of the left L4 nerve in the neural foramen. The right L4 nerve exits the neural foramen without compression. A diffuse disc bulge is present at the L5-S1 level. There is minimal compression of the thecal sac. There is hypertrophy of the posterior articulating facets. The L5 nerves exit the neural foramina without compression. The conus medullaris is normal in appearance terminating at the level of the T12-L1 intervertebral disc. Increased signal intensity on T1 and T2-weighted images is present in the T11 and T12 vertebral bodies. This represents fatty marrow replacement. Increased signal intensity on T2-weighted images is present in the end plates of the L1 through L4 vertebral bodies. This represents degenerative change. There is scoliosis of the lower thoracic and lumbar spine convex to the left. IMPRESSION: 1. Diffuse disc bulge at the L1-2 and L5-S1 levels with minimal thecal sac compression. 2. Minimal central canal stenosis at the L2-3 and L4-5 levels secondary to disc bulge, ligamentous and facet hypertrophy. There is compression of the right L2 and left L4 nerves in the neural foramina. 3. Mild central canal stenosis at the L3-4 level secondary to disc bulge, ligamentous and facet hypertrophy. There is compression of the L3 nerves in the neural foramina. Signed by Joshua Anderson MD 09/10/2016 12:28 P
[2016-09-10 14:00] VITALS: BP 140/72
[2016-09-10] MEDS ORDERED: WARFARIN SOD 1 MG TAB PO SCH (17:00)
[2016-09-10] MEDS ORDERED: WARFARIN SOD 5 MG TAB PO ONE ×2 (17:00)
[2016-09-10] MEDS ORDERED: WARFARIN SOD 3 MG TAB PO SCH (17:00)
--- NOTE | 2016-09-10 17:42 | CR ---
DATE OF CONSULTATION: 09/10/2016 CHIEF COMPLAINT: 1. Low back pain. 2. Bilateral leg pain. HISTORY OF PRESENT ILLNESS: Katrin is a 41-year-old female who has a long history of chronic back pain related to a work-related injury in 2008. 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 She was under care in [place] through pain management up until November of 2015. At that time, she was using morphine sulfate IR 30 mg up to five tablets a day. At that point in time, states she was able to live independently. Since stopping the medication, she has been unable to function independently and had to move to the area to live with her father. Finding that difficult as her father works during the day. Denies any use of narcotic pain medication since November. She has trialed multiple different opioid and non-opioid medications over the years with either adverse reaction or no improvement in pain. Rating pain level as a 7/10. Pain is mainly in the left back area. She does report radiation into the right and left legs bilaterally. Describes pain as burning. The patient is tearful during the interview and afraid that she is not ever going to be able to return to independent living. To complicate matters, she has a factor C deficiency blood dyscrasia which prevents her from any interventional therapy or surgical intervention. PAST MEDICAL HISTORY: 1. Protein C deficiency. 2. Pulmonary embolism (PE), deep venous thrombosis (DVT). 3. Anxiety. 4 Dyslipidemia. 5. Chronic back pain. 6. Fracture of low back. 7. Herniated disc spur. SURGICAL HISTORY: None. SOCIAL HISTORY: Smokes 10 cigarettes a day for the past 25 years. Denies alcohol use. Does report occasional use of marijuana. Denies use of cocaine. Denies aberrant use of opioid pain medication. Has limited support of her father and a few friends locally. She is not from this area originally. Denies suicidal attempts. Does report that her depression is so bad due to uncontrolled pain that she would sometimes rather be , although she has no active plans to hurt herself. FAMILY HISTORY: Noncontributory. ALLERGIES: 1. OXYCODONE. 2. METHADONE. 3. HYDROCODONE. 4. NUCYNTA. 5. FENTANYL. 6. ACETAMINOPHEN. PHYSICAL EXAMINATION: GENERAL: Awake, alert, pleasant. VITAL SIGNS: Temperature 96.5, pulse 52, respiratory rate 18, blood pressure 112/70, oxygen saturation 98% on room air. CARDIAC: S1, S2. Normal rate and rhythm. RESPIRATORY: Lung sounds are clear. Respirations nonlabored. INSPECTION OF SPINE: Marked scoliotic hump left lower thoracic, which is tender with palpation. Reports tenderness over the lower thoracic and lumbosacral (LS) axis. Reports tenderness over the LS paraspinals. The patient stands unassisted with use of walker. LOWER EXTREMITIES: No swelling noted. Warm to touch. NEUROMUSCULAR: Muscle strength of the lower extremities 3/5 bilaterally. ASSESSMENT: 1. Low back pain. 2. Lumbar disc displacement with radiculopathy. PLAN: After a lengthy discussion with patient, I have agreed to take her on as a pain medicine management patient at the pain center at [facility]. We have given her an appointment for September 29, at 10:30 a.m. Today I have ordered MSIR 15 mg three times a day, and Lyrica 100 mg twice a day. Continue intravenous (IV) morphine 2 mg as needed for severe breakthrough pain episodes of greater than 8/10 visual analogue scale (VAS). Please be advised that we will not be prescribing medicine at discharge and plans are to assume narcotic agreement with patient at her initial visit at our clinic on September 29. Thank you for allowing us to participate in the care of your patient, Katrin Rice. If you have any questions or concerns, please do not hesitate to contact us. [facility]
[2016-09-10 21:00] VITALS: O2SAT 95
[2016-09-10] MEDS: SIMVASTATIN 40 MG TAB PO SCH (21:02)
[2016-09-10] MEDS: VENLAFAXINE **XR** 75MG CAPSULE PO SCH (21:02)
[2016-09-10] MEDS: PREGABALIN 100 MG CAP (LYRICA) PO SCH (21:02)
[2016-09-10] MEDS: clonazePAM 0.5 MG TAB PO SCH (21:02)
[2016-09-10] MEDS: MORPHINE 30 MG TAB **MSIR PO SCH (21:04)
[2016-09-10 22:00] VITALS: BP 123/76
--- NOTE | 2016-09-11 03:57 | EDDOCDS ---
Nurse's Notes [facility] Name: Katrin Rice Age: 41 yrs Sex: Female : 1975 Arrival Date: 09/08/2016 Time: 21:31 Bed 12 Private MD: Diagnosis: Limitation of activities due to disability;Other chronic pain Presentation: 09/08 21:35 Presenting complaint: EMS states: Patient injured her back in 2008 moving a person in [facility] bed. She moved here from [place] as no longer seeing physician there. Now seeing Dr. Powell here through [facility]. States she was walking yesterday but unable to get out of bed today. States she has not eaten in 5 days. Pain is unbearable according to patient. History of herniated discs and fractured lower back as well as disc spurs. Acute neurological deficits are not present. Mechanism of Injury: No Mechanism of Injury. Adult Sepsis Screening: The patient does not have new or worsening altered mentation. Patient's respiratory rate is less than 22. Systolic blood pressure is greater than 100. Patient has a qSOFA score of 0- Negative Sepsis Screen. Suicide/Homicide risk assessment- the patient denies having any suicidal and/or homicidal ideations and does not present with any other emotional, behavioral or mental health complaints. 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 Transition of care: patient was not received from another setting of care. 21:35 Acuity: BILL Level 3 [facility] 21:35 Method Of Arrival: Ambulance [facility] Triage Assessment: 21:45 General: Appears in no apparent distress, uncomfortable, well nourished, well groomed, [facility] Behavior is appropriate for age, cooperative. Pain: Location: left lower back, right lower back and left gluteal fold Pain currently is 10 out of 10 on a pain scale. Pain radiates to left leg. Pt Declines HIV testing. Neurological: Level of Consciousness is awake, alert, Oriented to person, place, time. Cardiovascular: Capillary refill < 3 seconds Heart tones S1 S2 present Rhythm is sinus rhythm No ectopy. Respiratory: Airway is patent Respiratory effort is even, unlabored, Respiratory pattern is regular, symmetrical, Breath sounds are clear bilaterally. Derm: Skin is intact, Skin is dry, Skin is pink, warm & dry. Skin temperature is warm. Musculoskeletal: Circulation, motion, and sensation intact Capillary refill < 3 seconds Range of motion limited in enitre lower back region. Injury Description: No known injury. PENSION AGENT: 09/09 02:44 LMP 09/09/2016 nn1 Historical: - Allergies: Hydrocodone-Acetaminophen; Augmentin; Methadone; Nucynta; Prednisone; Fentanyl; Percocet; - Home Meds: 1. simvastatin 40 mg Oral tab once daily 2. warfarin 5 mg Oral tab 1 tab once daily 3. venlafaxine 75 mg oral cp24 1 cap once daily 4. clonazepam 0.5 mg Oral tab 1 tab 3 times per day 5. enalapril maleate 10 mg Oral tab 1 tab once daily 6. baclofen 20 mg Oral tab 1 tab 3 times per day - PMHx: Anxiety; Hypercholesterolemia; Chronic Back pain; fractured lower back; herniated discs; disc spurs; - Social history: Smoking status: Patient uses tobacco products, heavy tobacco smoker. No barriers to communication noted, The patient speaks fluent Montenegrin. - Family history: Not pertinent. - : The pt / caregiver states he / she is on anticoagulants: coumadin. Home medication list is obtained from the patient. - Exposure Risk Screening:: None identified. Screenin/06 21:49 Screening information is obtained from the patient. Fall risk: No risks identified. kas2 Assistance ADL's: requires no assistance with activities of daily living. Abuse/DV Screen: The patient / caregiver reports he/she is: not in a situation that causes fear, pain or injury. Nutritional screening: No deficits noted. Advance Directives: Currently, there is no health care proxy. There is no active DNR order. There is no living will. There is no Power of Teaching Supervisor. home support is adequate. Assessment: 21:48 General: See triage note. kas2 22:54 General: Appears in no apparent distress, uncomfortable, Behavior is appropriate for kas2 age, cooperative. Pain: Location: left leg and buttocks and left gluteal fold and right lower back and left lower back Pain currently is 10 out of 10 on a pain scale. Neurological: Level of Consciousness is awake, alert, Oriented to person, place, time. Respiratory: Airway is patent Respiratory effort is even, unlabored, Respiratory pattern is regular, symmetrical. Derm: Skin is intact, Skin is dry, Skin is pink, warm & dry. Skin temperature is warm. 09/09 00:11 General: Patient laying in bed. No apparent distress noted at this time. Patient states kas2 back pain is 5/10 when not moving but remains a 10/10 with movement. Call martinez within reach. Will continue to monitor.. 00:15 General: Dr. Kenny in to reassess patient at this time.. kas2 00:52 General: Performed I/O catheter on patient to obtain urine. Patient tolerated procedure [facility] well. Sent urine to lab.. 01:41 General: Appears in no apparent distress, uncomfortable, Behavior is appropriate for [facility] age, cooperative. Pain: Location: left leg and buttocks and left gluteal fold and right lower back and left lower back Pain currently is 6 out of 10 on a pain scale. Neurological: Level of Consciousness is awake, alert, Oriented to person, place, time. Respiratory: Airway is patent Respiratory effort is even, unlabored, Respiratory pattern is regular, symmetrical. Derm: Skin is intact, Skin is dry, Skin is pink, warm & dry. Skin temperature is warm. Musculoskeletal: Circulation, motion, and sensation intact Capillary refill < 3 seconds Range of motion limited in left leg and buttocks and left gluteal fold and right lower back and left lower back. 02:18 General: Patient sleeping at this time. No apparent distress. Appears comfortable. kas2 Airway patent and respiratory effort and even and unlabored. Call martinez within reach. Will continue to monitor.. Vital Signs: 09/08 21:42 BP 138 / 70; Pulse 70; Resp 18; Temp 98.4; Pulse Ox 98% ; Weight 77.11 kg; Height 5 ft. [facility] 1 in. (154.94 cm); Pain 10/10; 09/09 01:42 BP 142 / 75; Pulse 75; Resp 18; Temp 98.0(O); Pulse Ox 99% on R/A; Pain 6/10; kas2 02:26 BP 107 / 66; Pulse 56; Resp 18; Temp 98.5; Pulse Ox 95% on R/A; Pain 6/10; kas2 09/08 21:42 Body Mass Index 32.12 (77.11 kg, 154.94 cm) [facility] Vitals: 02:22 Log In Time N/A - ambulance arrival. [facility] ED Course: 09/08 21:32 Patient visited by McLear, Celeste, CATERING ADMINISTRATIVE ASSISTANT. tmm1 21:32 Patient moved to Waiting tmm1 21:33 Vivian Mishra RN is Primary Nurse. tmm1 21:33 Ene Guido RN is Primary Nurse. tmm1 21:33 Samuel Kenny DO is Attending Physician. cs11 21:33 Patient visited by Samuel Kenny DO. cs11 21:33 Patient moved to 12 tmm1 21:40 Triage Initiated kas2 21:44 Patient visited by Ene Guido RN. kas2 21:49 Patient visited by Ene Guido RN. kas2 22:23 Patient visited by Ene Guido RN. kas2 22:55 Patient visited by Ene Guido RN. kas2 23:33 Pt & Aptt Sent. kas2 23:33 MED Profile Sent. kas2 23:33 CBC Sent. kas2 23:34 Patient visited by Ene Guido RN. kas2 23:34 Labs drawn. (by ED staff). Sent per order to lab. kas2 23:38 Patient visited by Ene Guido RN. kas2 23:57 Primary Nurse role handed off by Vivian Mishra RN jaden 02/07 00:12 Patient visited by Ene Guido RN. kas2 00:34 Patient visited by Ene Guido RN. kas2 00:53 Patient visited by Ene Guido RN. kas2 00:53 Urine Toxicology Sent. kas2 00:53 Urine collected. straight cath specimen. Urine specimen sent to lab. kas2 00:57 Nicky Rey is Hospitalizing Provider. cs11 01:40 Patient name changed from Katrin\S\R\S\[place]\S\ to Katrin\S\[place]y\S\[place]. EDMS 01:40 [facility] Payment Agreement was scanned into [employer] and attached to record. pm4 01:42 Patient visited by Ene Guido RN. kas2 02:05 Chest, 1 View Returned. EDMS 02:22 The patient / caregiver is instructed regarding the plan of care and ED course. kas2 02:22 No IV's were initiated during this patient's visit. No procedures done that require kas2 assistance. 02:23 Patient visited by Ene Guido RN. kas2 02:24 Patient visited by Ene Guido RN. kas2 02:37 Inserted saline lock: 20 gauge in left antecubital area The patient tolerated the kas2 procedure well. 02:42 Patient visited by Ene Guido RN. kas2 11:12 T-Sheet-- Draft Copy was scanned into [employer] and attached to record. gb 09/10 09:05 PCR was scanned into [employer] and attached to record. gb Administered Medications: 09/08 23:33 Drug: ketorolac 60 mg [ketorolac 30 mg/mL (1 mL) injection solution (2 mL)] Route: IM; kas2 Site: right deltoid; Order Results: Lab Order: CBC; SPEC'M 09/08/16 23:31 Test: WHITE BLOOD COUNT; Value: 9.1; Range: 4.0-10.0; Units: K/mm3; Status: F Test: RED BLOOD COUNT; Value: 4.50; Range: 4.00-5.40; Units: M/mm3; Status: F Test: HEMOGLOBIN; Value: 14.3; Range: 12.0-16.0; Units: g/dl; Status: F Test: HEMATOCRIT; Value: 41.4; Range: 36.0-47.0; Units: %; Status: F Test: MEAN CORPUSCULAR VOLUME; Value: 92.1; Range: 80.0-96.0; Units: fl; Status: F Test: MEAN CORPUSCULAR HEMOGLOBIN; Value: 31.7; Range: 27.0-33.0; Units: pg; Status: F Test: MEAN CORPUSCULAR HGB CONC; Value: 34.4; Range: 32.0-36.5; Units: g/dl; Status: F Test: RED CELL DISTRIBUTION WIDTH; Value: 11.7; Range: 11.5-14.5; Units: %; Status: F Test: PLATELET COUNT, AUTOMATED; Value: 238; Range: 150-450; Units: k/mm3; Status: F Lab Order: MED Profile; SPEC'M 09/08/16 23:31 Test: GLUCOSE, FASTING; Value: 87; Range: 70-105; Units: MG/DL; Status: F Test: BLOOD UREA NITROGEN; Value: 6; Range: 7-18; Abnormal: Below low normal; Units: MG/DL; Status: F Test: CREATININE FOR GFR; Value: 0.66; Range: 0.55-1.02; Units: MG/DL; Status: F Test: GLOMERULAR FILTRATION RATE; Value: > 60.0; Range: >58; Status: F Test: SODIUM LEVEL; Value: 143; Range: 136-145; Units: MEQ/L; Status: F Test: POTASSIUM SERUM; Value: 4.0; Range: 3.5-5.1; Units: MEQ/L; Status: F Test: CHLORIDE LEVEL; Value: 111; Range: 98-107; Abnormal: Above high normal; Units: MEQ/L; Status: F Test: CARBON DIOXIDE LEVEL; Value: 25; Range: 21-32; Units: MEQ/L; Status: F Test: ANION GAP; Value: 7; Range: 8-16; Abnormal: Below low normal; Units: MEQ/L; Status: F Test: CALCIUM LEVEL; Value: 8.5; Range: 8.5-10.1; Units: MG/DL; Status: F Test Note: ; Units are mL/min/1.73 m2 Chronic Kidney Disease Staging per NKF: Stage I & II GFR >=60 Normal to Mildly Decreased Stage III GFR 30-59 Moderately Decreased Stage IV GFR 15-29 Severely Decreased Stage V GFR <15 Very Little GFR Left ESRD GFR <15 on JEWELRY CONSULTANT Lab Order: Pt & Aptt; SPEC'M 09/08/16 23:31 Test: PROTHROMBIN TIME; Value: 27.6; Range: 12.3-14.5; Abnormal: Above high normal; Units: SECONDS; Status: F Test: INR; Value: 2.56; Status: F Test: PARTIAL THROMBOPLASTIN TIME; Value: 40.5; Range: 26.6-37.1; Abnormal: Above high normal; Units: SECONDS; Status: F Test Note: ; THERAPUTIC HUMAN INR VALUES INDICATIONS NORMAL RANGES PROPHYLAXIS/TREATMENT OF: VENOUS THROMBOSIS 2.0-3.0 PULMONARY EMBOLISM 2.0-3.0 PREVENTION OF SYSTEMIC EMBOLISM FROM: TISSUE HEART VALVES 2.0-3.0 ACUTE MYOCARDIAL INFARCTION 2.0-3.0 VALVULAR HEART DISEASE 2.0-3.0 ATRIAL FIBRILLATION 2.0-3.0 MECHANICAL VALVES(HIGH RISK) 2.5-3.5 RECURRENT MYOCARDIAL INFARCTION 2.5-3.5 Lab Order: Urine Toxicology; SPEC'M 09/09/16 00:51 Test: AMPHETAMINES LEVEL URINE; Value: NEGATIVE; Range: NEGATIVE; Status: F Test: BARBITURATES URINE; Value: NEGATIVE; Range: NEGATIVE; Status: F Test: BENZODIAZEPINES URINE; Value: NEGATIVE; Range: NEGATIVE; Status: F Test: CANNABINOIDS URINE; Value: NEGATIVE; Range: NEGATIVE; Status: F Test: COCAINE METABOLITE URINE; Value: NEGATIVE; Range: NEGATIVE; Status: F Test: METHADONE URINE; Value: NEGATIVE; Range: NEGATIVE; Status: F Test: OPIATES URINE; Value: NEGATIVE; Range: NEGATIVE; Status: F Test: TRICYCLIC ANTIDEPRESS URINE; Value: NEGATIVE; Range: NEGATIVE; Status: F Test Note: ; ALL PRESUMPTIVE POSITIVE FINDINGS ARE UNCONFIRMED NORMAL VALUES THRESHOLD IN NG/ML AMPHETAMINES 1000 METHAMPHETAMINES 1000 BARBITURATES 300 BENZODIAZEPINES 300 CANNABINOIDS (THC) 50 COCAINE METABOLITE 300 METHADONE 300 OPIATES 300 PHENCYCLIDINE 25 TRICYCLIC ANTIDEPRESSANTS 1000 RESULTS ARE FOR MEDICAL PURPOSES ONLY. ALL URINE SPECIMENS WILL BE SAVED FOR 3 DAYS. IF CONFIRMATION OF A PRESUMPTIVE POSTIVE SCREEN RESULT IS DESIRED, CALL CHEMISTRY ([phone]) AND REQUEST URINE TO BE SENT TO REFERENCE LAB. FOR A LIST OF CLOSELY RELATED COMPOUNDS PLEASE CALL THE LAB. Lab Order: LIPASE; SPEC'M 09/08/16 23:31 Test: LIPASE; Value: 66; Range: 73-393; Abnormal: Below low normal; Units: U/L; Status: F Radiology Order: Chest, 1 View Test: Chest, 1 View REASON FOR EXAMINATION: admission; Clinical: Chest pain. Pre admission .; Technique: PA and lateral.; ; Comparison: None .; ; Findings:; The mediastinum and cardiothymic silhouette are normal. The lung volumes are; symmetric and normal. No acute consolidation, effusion, or pneumothorax.; Skeletal structures are intact and normal for age.; ; Impression:; Normal chest x-ray.; No focal consolidation.; ; ; Signed by; Reid Macedo MD 09/09/2016 01:31 A; Outcome: 09/09 00:58 Decision to Hospitalize by Provider. cs11 02:21 Discharge Assessment: patient administered narcotics - no. The following High Risk [facility] Discharge criteria are identified: None. Admitted to Med/Surg accompanied by tech, via stretcher, with chart. Condition: stable. CT Study completed. Property :Personal belongings accompany Pt. 02:56 Patient left the ED. kas2 Signatures: Dispatcher [employer] EDMS Kylie Hendrix, Reg Reg gb Arielle, Vandana, CATERING ADMINISTRATIVE ASSISTANT CATERING ADMINISTRATIVE ASSISTANT jaden Samuel Kenny, DO DO cs11 Rajendra, Celeste, CATERING ADMINISTRATIVE ASSISTANT CATERING ADMINISTRATIVE ASSISTANT tmm1 Kolton Bird,RN RN nn1 Ene Guido RN RN kas2 Ezequiel Robles, Reg Reg pm4 Chart Complete MTDD
--- NOTE | 2016-09-11 03:57 | EDDOCDS ---
Physician Documentation [facility] Name: Katrin Rice Age: 41 yrs Sex: Female : 1975 Arrival Date: 09/08/2016 Time: 21:31 Bed 12 Private MD: Disposition: 09/09/16 00:58 Hospitalization ordered by Nicky Rey for Inpatient Admission. Preliminary diagnosis are Limitation of activities due to disability, Other chronic pain. - Bed requested for 5 Hart. - Status is Inpatient Admission. kas2 - Condition is Stable. - Problem is chronic. - Symptoms are unchanged. Historical: - Allergies: Hydrocodone-Acetaminophen; Augmentin; Methadone; Nucynta; Prednisone; Fentanyl; Percocet; - Home Meds: 1. simvastatin 40 mg Oral tab once daily 2. warfarin 5 mg Oral tab 1 tab once daily 3. venlafaxine 75 mg oral cp24 1 cap once daily 4. clonazepam 0.5 mg Oral tab 1 tab 3 times per day 5. enalapril maleate 10 mg Oral tab 1 tab once daily 6. baclofen 20 mg Oral tab 1 tab 3 times per day - PMHx: Anxiety; Hypercholesterolemia; Chronic Back pain; fractured lower back; herniated discs; disc spurs; - Social history: Smoking status: Patient uses tobacco products, heavy tobacco smoker. No barriers to communication noted, The patient speaks fluent Maori. - Family history: Not pertinent. - : The pt / caregiver states he / she is on anticoagulants: coumadin. Home medication list is obtained from the patient. - Exposure Risk Screening:: None identified. TABLE GAMES FLOOR SUPERVISOR: 09/09 02:44 LMP 09/09/2016 nn1 Vital Signs: 09/08 21:42 BP 138 / 70; Pulse 70; Resp 18; Temp 98.4; Pulse Ox 98% ; Weight 77.11 kg / 170 lbs; kas2 Height 5 ft. 1 in. (154.94 cm); Pain 10/; 09/09 01:42 BP 142 / 75; Pulse 75; Resp 18; Temp 98.0(O); Pulse Ox 99% on R/A; Pain 6/10; kas2 02:26 BP 107 / 66; Pulse 56; Resp 18; Temp 98.5; Pulse Ox 95% on R/A; Pain 6/10; kas2 09/08 21:42 Body Mass Index 32.12 (77.11 kg, 154.94 cm) kas2 MDM: 09/08 23:20 ketorolac 60 mg IM once ordered. cs11 23:20 CBC Ordered. EDMS 23:20 MED Profile Ordered. EDMS 23:21 Pt & Aptt Ordered. EDMS 23:22 Chest, 1 View Ordered. EDMS 0207 00:28 Pt & Aptt Reviewed. cs11 00:28 CBC Reviewed. cs11 00:32 Urine Toxicology Ordered. EDMS 01:02 BED REQUEST+ADM ordered. EDMS 01:09 Financial registration complete. pm4 01:30 MRI Spine,Cervical without con Ordered. EDMS 01:31 MRI Spine,Thoracic without con Ordered. EDMS 01:31 MRI Spine, L.S. without con Ordered. EDMS 01:31 PHYSICAL THERAPY EVAL & TREAT ordered. EDMS 01:32 Admission / Observation Status ordered. EDMS 01:32 REGULAR DIET ordered. EDMS 01:40 LIPASE Ordered. EDMS 01:40 [facility] Agreement was scanned into [employer] and attached to record. pm4 11:12 T-Sheet-- Draft Copy was scanned into [employer] and attached to record. 09/10 09:05 PCR was scanned into [employer] and attached to record. gb Administered Medications: 09/08 23:33 Drug: ketorolac 60 mg [ketorolac 30 mg/mL (1 mL) injection solution (2 mL)] Route: IM; [facility] Site: right deltoid; Signatures: Dispatcher [employer] EDNC Kylie Hendrix, Reg Reg gb Laura Conklin RN RN [id number] Samuel Kenny DO DO cs11 Celeste Drew, VESSEL SLAGMAN VESSEL SLAGMAN tmm1 Ene Guido RN RN kas2 Ezequiel Robles, Reg Reg pm4 The chart was reviewed and I authenticate all verbal orders and agree with the evaluation and treatment provided.Corrections: (The following items were deleted from the chart) 09/09 01:40 01:30 LIPASE ordered. EDMS EDMS Attachments: 01:40 [facility] [place] Agreement pm4 11:12 T-Sheet-- Draft Copy gb Chart Complete MTDD
--- NOTE | 2016-09-11 03:57 | EDDOCDS ---
Physician Documentation [facility] Name: Katrin Rice Age: 41 yrs Sex: Female : 1975 Arrival Date: 09/08/2016 Time: 21:31 Bed 12 Private MD: Disposition: 09/09/16 00:58 Hospitalization ordered by Nicky Rey for Inpatient Admission. Preliminary diagnosis are Limitation of activities due to disability, Other chronic pain. - Bed requested for 5 Hart. - Status is Inpatient Admission. kas2 - Condition is Stable. - Problem is chronic. - Symptoms are unchanged. Historical: - Allergies: Hydrocodone-Acetaminophen; Augmentin; Methadone; Nucynta; Prednisone; Fentanyl; Percocet; - Home Meds: 1. simvastatin 40 mg Oral tab once daily 2. warfarin 5 mg Oral tab 1 tab once daily 3. venlafaxine 75 mg oral cp24 1 cap once daily 4. clonazepam 0.5 mg Oral tab 1 tab 3 times per day 5. enalapril maleate 10 mg Oral tab 1 tab once daily 6. baclofen 20 mg Oral tab 1 tab 3 times per day - PMHx: Anxiety; Hypercholesterolemia; Chronic Back pain; fractured lower back; herniated discs; disc spurs; - Social history: Smoking status: Patient uses tobacco products, heavy tobacco smoker. No barriers to communication noted, The patient speaks fluent Greenlandic. - Family history: Not pertinent. - : The pt / caregiver states he / she is on anticoagulants: coumadin. Home medication list is obtained from the patient. - Exposure Risk Screening:: None identified. [employer]: 09/09 02:44 LMP 09/09/2016 nn1 Vital Signs: 09/08 21:42 BP 138 / 70; Pulse 70; Resp 18; Temp 98.4; Pulse Ox 98% ; Weight 77.11 kg / 170 lbs; kas2 Height 5 ft. 1 in. (154.94 cm); Pain 10/; 09/09 01:42 BP 142 / 75; Pulse 75; Resp 18; Temp 98.0(O); Pulse Ox 99% on R/A; Pain 6/10; kas2 02:26 BP 107 / 66; Pulse 56; Resp 18; Temp 98.5; Pulse Ox 95% on R/A; Pain 6/10; kas2 09/08 21:42 Body Mass Index 32.12 (77.11 kg, 154.94 cm) kas2 MDM: 09/08 23:20 ketorolac 60 mg IM once ordered. cs11 23:20 CBC Ordered. EDMS 23:20 MED Profile Ordered. EDMS 23:21 Pt & Aptt Ordered. EDMS 23:22 Chest, 1 View Ordered. EDMS 0207 00:28 Pt & Aptt Reviewed. cs11 00:28 CBC Reviewed. cs11 00:32 Urine Toxicology Ordered. EDMS 01:02 BED REQUEST+ADM ordered. EDMS 01:09 Financial registration complete. pm4 01:30 MRI Spine,Cervical without con Ordered. EDMS 01:31 MRI Spine,Thoracic without con Ordered. EDMS 01:31 MRI Spine, L.S. without con Ordered. EDMS 01:31 PHYSICAL THERAPY EVAL & TREAT ordered. EDMS 01:32 Admission / Observation Status ordered. EDMS 01:32 REGULAR DIET ordered. EDMS 01:40 LIPASE Ordered. EDMS 01:40 [facility] Agreement was scanned into [employer] and attached to record. pm4 11:12 T-Sheet-- Draft Copy was scanned into [employer] and attached to record. 09/10 09:05 PCR was scanned into [employer] and attached to record. gb Administered Medications: 09/08 23:33 Drug: ketorolac 60 mg [ketorolac 30 mg/mL (1 mL) injection solution (2 mL)] Route: IM; [facility] Site: right deltoid; Signatures: Dispatcher [employer] EDCO Kylie Hendrix, Reg Reg gb Laura Conklin RN RN [id number] Samuel Kenny DO DO cs11 Celeste Drew, HEEL BUILDER HEEL BUILDER tmm1 Ene Guido RN RN kas2 Ezequiel Robles, Reg Reg pm4 The chart was reviewed and I authenticate all verbal orders and agree with the evaluation and treatment provided.Corrections: (The following items were deleted from the chart) 09/09 01:40 01:30 LIPASE ordered. EDMS EDMS Attachments: 01:40 [facility] [place] Agreement pm4 11:12 T-Sheet-- Draft Copy gb Chart Complete MTDD
[2016-09-11] MEDS: MORPHINE 2 MG/ML 1ML SYRINGE IV PRN ×5 (04:20→19:20)
[2016-09-11] MEDS: clonazePAM 1 MG TAB PO SCH ×3 (05:02→15:37)
[2016-09-11 06:00] VITALS: BP 139/70
[2016-09-11 06:42] LABS: MEAN CORPUSCULAR HEMOGLOBIN 32.5 pg (27.0-33.0); MEAN CORPUSCULAR HGB CONC 34.3 g/dl (32.0-36.5); MEAN CORPUSCULAR VOLUME 94.8 fl (80.0-96.0); RED CELL DISTRIBUTION WIDTH 12.2 % (11.5-14.5); WHITE BLOOD COUNT 9.1 K/mm3 (4.0-10.0)
[2016-09-11 07:00] LABS: ANION GAP 8 MEQ/L (8-16); BLOOD UREA NITROGEN 13 MG/DL (7-18); CALCIUM LEVEL 8.3 MG/DL (8.5-10.1); CARBON DIOXIDE LEVEL 24 MEQ/L (21-32); CHLORIDE LEVEL 114 MEQ/L (98-107); CREATININE FOR GFR 0.89 MG/DL (0.55-1.02); GLOMERULAR FILTRATION RATE > 60.0 (>58); GLUCOSE, FASTING 85 MG/DL (70-105); MAGNESIUM LEVEL 1.8 MG/DL (1.8-2.4); POTASSIUM SERUM 3.8 MEQ/L (3.5-5.1); SODIUM LEVEL 146 MEQ/L (136-145)
[2016-09-11] MEDS: PREGABALIN 100 MG CAP (LYRICA) PO SCH ×2 (08:49→20:31)
[2016-09-11] MEDS: CYANOCOBALAMIN 500 MCG TAB PO SCH (08:49)
[2016-09-11] MEDS: MORPHINE 30 MG TAB **MSIR PO SCH ×3 (08:49→20:31)
[2016-09-11] MEDS: PANTOPRAZOLE 40MG TAB (PROTONIX) PO SCH (08:49)
[2016-09-11] MEDS: SENOKOT S TAB PO SCH ×2 (08:49→20:31)
[2016-09-11] MEDS: VITAMIN D 1,000 INTERNATIONAL UNITS TABLET PO SCH (08:50)
[2016-09-11] MEDS: NICOTINE 7 MG/24 HR TRANSDERMAL TD SCH (08:50)
[2016-09-11] MEDS: LIDOCAINE 5% OINT 30 GM TOP SCH (08:50)
[2016-09-11] MEDS: BACLOFEN 10 MG TAB PO SCH ×3 (08:50→20:31)
[2016-09-11] MEDS: CARBAMIDE PEROXIDE 6.5% OTIC SOLN 15ML AS SCH ×2 (08:51→21:03)
[2016-09-11] MEDS: ENOXAPARIN 80 MG/0.8 ML SYRINGE (J1650) SC SCH ×2 (08:51→20:29)
--- NOTE | 2016-09-11 09:06 | IPN ---
DATE: 09/11/2016 Patient seen and examined at the bedside. Chart has been reviewed. Patient still complains of generalized weakness. She was able to sleep about 4 hours last night, requesting to have a shower today. Pain management has seen her yesterday. Recommended followup in the office for radiculopathy with appointment 09/29 at 10:30. Continue MSIR15 mg three times daily, Lyrica 100 twice daily. Patient has good control at the moment. Vitals: Temperature 99, pulse 59, respiratory rate 18, blood pressure 139/70, 97% on room air. Generally, awake, alert, oriented, a little bit more lethargic today but arousable and speaks in full sentences. No respiratory distress. Lungs: Clear to auscultation, no wheezing, rales or rhonchi. Heart: S1, S2. Sinus rhythm. Abdomen: Soft, nontender, nondistended. Positive bowel sounds. Extremities: No cyanosis, clubbing or pitting edema. Neurologically, patient's muscle strength bilateral lower extremities 4/5 motor function. Some point tenderness around the L2-L3 lumbar spine. LABORATORY DATA: White count 9.1, hemoglobin 12, hematocrit 36, platelet count 200. INR is still pending. Sodium 146, potassium 3.8, chloride 114, bicarbonate 24, BUN 13, creatinine 0.89, glucose of 85, magnesium of 1.8. Stool culture is still pending. Thoracic spine MRI shows disc bulges at T9 to L1 without spinal cord compression. Lumbar spine x-ray shows mild central canal stenosis L3-L4, compression of L3 neural foramina, compression of right L2 and left L4 neural foramina. Diffuse disc bulge L1-S1. Cervical spine MRI showed cervical spondylosis C4-C7 without spinal cord compression. ASSESSMENT AND PLAN: This is a 41-year-old female with history of protein C deficiency, pulmonary embolism (PE), deep venous thrombosis (DVT) on chronic Coumadin, anxiety, dyslipidemia, disc bulges, L2 nerve compression with lumbar radiculopathy, herniated disc burst presents with intractable back pain. CURRENT ISSUES: 1. Chronic low back pain with lumbar disc displacement and radiculopathy. Pain management has been consulted and recommends MSIR 15 mg three times daily and Lyrica 100 twice daily. Continue IV morphine for breakthrough pain and outpatient appointment 09/29 at 10:30 a.m. Continue physical therapy and discharge once cleared by physical therapy. 2. Protein C deficiency. History of pulmonary embolism, deep venous thrombosis. INR yesterday was 1.78. INR today is unavailable. She is continued on bridge therapy with Lovenox and Coumadin until she is therapeutic. Once she is therapeutic INR about 2-3, she may resume her home dose of Coumadin. 3. Anxiety. Continue home medications. 4. Dyslipidemia. 5. Hypertension, on home medications. DISPOSITION: Await physical therapy clearance prior to discharge home. MTDD
[2016-09-11 14:00] VITALS: BP 122/76
[2016-09-11 14:33] LABS: INR 1.27
[2016-09-11] MEDS: SIMVASTATIN 40 MG TAB PO SCH (20:31)
[2016-09-11] MEDS: VENLAFAXINE **XR** 75MG CAPSULE PO SCH (20:31)
[2016-09-11] MEDS: clonazePAM 0.5 MG TAB PO SCH (20:31)
[2016-09-11 22:00] VITALS: BP 140/65
[2016-09-11 22:05] VITALS: O2SAT 93
[2016-09-12] MEDS: MORPHINE 2 MG/ML 1ML SYRINGE IV PRN ×3 (01:52→22:12)
[2016-09-12] MEDS: clonazePAM 1 MG TAB PO SCH ×2 (05:35→09:51)
[2016-09-12 06:53] LABS: MEAN CORPUSCULAR HEMOGLOBIN 31.6 pg (27.0-33.0); MEAN CORPUSCULAR HGB CONC 32.8 g/dl (32.0-36.5); MEAN CORPUSCULAR VOLUME 96.4 fl (80.0-96.0); RED CELL DISTRIBUTION WIDTH 11.8 % (11.5-14.5); WHITE BLOOD COUNT 8.6 K/mm3 (4.0-10.0)
[2016-09-12 06:57] LABS: INR 1.26
[2016-09-12 07:03] LABS: CALCIUM LEVEL 8.2 MG/DL (8.5-10.1); CREATININE FOR GFR 1.21 MG/DL (0.55-1.02); GLOMERULAR FILTRATION RATE 51.9 (>58); MAGNESIUM LEVEL 1.9 MG/DL (1.8-2.4); POTASSIUM SERUM 4.2 MEQ/L (3.5-5.1)
[2016-09-12] MEDS ORDERED: WARFARIN SOD 10 MG TAB PO ONE ×2 (07:15→08:00)
[2016-09-12] MEDS: PREGABALIN 100 MG CAP (LYRICA) PO SCH (08:47)
[2016-09-12] MEDS: MORPHINE 30 MG TAB **MSIR PO SCH ×3 (08:55→20:12)
[2016-09-12] MEDS: PANTOPRAZOLE 40MG TAB (PROTONIX) PO SCH ×2 (09:00→10:38)
[2016-09-12] MEDS: NICOTINE 7 MG/24 HR TRANSDERMAL TD SCH ×2 (09:00→20:10)
[2016-09-12] MEDS: LIDOCAINE 5% OINT 30 GM TOP SCH (09:00)
[2016-09-12] MEDS: BACLOFEN 10 MG TAB PO SCH (09:00)
[2016-09-12 09:30] VITALS: BP 118/62
[2016-09-12] MEDS: SENOKOT S TAB PO SCH ×2 (10:37→20:10)
[2016-09-12] MEDS: VITAMIN D 1,000 INTERNATIONAL UNITS TABLET PO SCH (10:37)
[2016-09-12] MEDS: CARBAMIDE PEROXIDE 6.5% OTIC SOLN 15ML AS SCH ×2 (10:38→20:13)
[2016-09-12] MEDS: CYANOCOBALAMIN 500 MCG TAB PO SCH (10:38)
[2016-09-12 10:50] LABS: ABG BASE EXCESS -2.9 (-2.0-2.0); ABG HCO3 22.1 MEQ/L (22.0-26.0); ABG PARTIAL PRESSURE CO2 39.3 mmHg (35.0-45.0); ABG PARTIAL PRESSURE O2 77.9 mmHg (75.0-100.0); ABG TOTAL CO2 23.3 MEQ/L (22.0-29.0); ABG pH (ARTERIAL) 7.368 UNITS (7.350-7.450)
[2016-09-12] MEDS: ENOXAPARIN 80 MG/0.8 ML SYRINGE (J1650) SC SCH ×2 (11:09→20:11)
[2016-09-12 11:17] VITALS: BP 120/64
[2016-09-12 11:41] VITALS: BP 120/64
--- NOTE | 2016-09-12 13:14 | IPN ---
DATE: 09/12/2016 Patient seen and examined at the bedside. Chart has been reviewed. This morning, the patient appears to be slightly lethargic, arousable, and speaks in full sentences. Able to converse adequately. No respiratory distress. Awake, alert, oriented to person, place and time. No focal deficits neurologically. Vitals: Temperature 98, pulse 50, respiratory rate 12, blood pressure 120/64, 98% on room air. Generally, patient is lethargic, but arousable. Speaks in full sentences. No facial asymmetry. Lungs: Clear to auscultation. No wheezing, rales or rhonchi. Heart: S1, S2. Sinus rhythm. Abdomen: Soft, nontender, nondistended. Positive bowel sounds. Extremities: No cyanosis, clubbing or pitting edema. Neurologically, patient's motor function, gait was not tested. 3/5 motor strength in the bilateral lower extremities, 5/5 bilateral upper extremities. LABORATORY DATA/MICROBIOLOGY/IMAGING STUDIES: Have been reviewed. ASSESSMENT AND PLAN: This is a 41-year-old female with history of protein C deficiency, pulmonary embolism (PE), deep venous thrombosis (DVT) on chronic Coumadin, anxiety, dyslipidemia, disc bulges, L2 nerve compression with lumbar radiculopathy, herniated disc disease who presents with intractable lower back pain with inability to ambulate. IMPRESSIONS: 1. Chronic low back pain with lumbar disc displacement and radiculopathy. Patient has been seen by pain management. Recommending MSIR 15 mg three times daily and Lyrica 100 twice daily and IV morphine for breakthrough pain with outpatient appointment on 09/29/2016 at 10:30 a.m. Patient has been cleared by physical therapy, but cannot be discharged today due to subtherapeutic INR for her protein C deficiency and history of PE and DVT. At this time, the patient appears to be having significant sedation and obtundation from patient's opioids and Lyrica, all of which has been discontinued until the patient is much more stable. 2. Acute encephalopathy secondary to opioids and Lyrica. Arterial blood gases are adequate. There is no CO2 retention. However, the patient's morphine and Lyrica have been temporarily stopped and discontinued due to increased lethargy. Will resume at a lower dose and as needed basis for morphine. 3. Protein C deficiency with history of pulmonary embolism and deep venous thrombosis. INR continues to be subtherapeutic at 1.2. Will continue with bridge therapy with Lovenox and 10 mg of Coumadin and titrate accordingly to target INR of 2-3. Once the patient's INR is therapeutic, we will discontinue patient's Lovenox and switch therapy and continue on home dose of Coumadin. At this time, the patient will remain in the hospital for the next 24 to 48 hours for adjustment of her Coumadin level for history of protein C deficiency with history of bilateral pulmonary embolisms and deep vein thromboses. 4. Anxiety. Patient's medications have been held due to increased obtundation. 5. Dyslipidemia. Stable. 6. Hypertension. Will hold all medications until patient is much more stabilized. MTDD
[2016-09-12] MEDS ORDERED: MORPHINE 30 MG TAB **MSIR PO PRN (16:30)
[2016-09-12] MEDS ORDERED: MORPHINE 2 MG/ML 1ML SYRINGE IV PRN ×2 (16:30→17:00)
[2016-09-12] MEDS ORDERED: MORPHINE 30 MG TAB **MSIR PO STA (16:30)
[2016-09-12] MEDS ORDERED: WARFARIN SOD 10 MG TAB PO SCH (17:00)
--- NOTE | 2016-09-12 17:19 | CR ---
DATE OF CONSULTATION: 09/12/2016 I was notified of patient's decreased heart rate and 2 mm pinpoint pupils as well as sluggishness this morning at 8:00 a.m. Respiratory rate was down to 11. Dr. Ocampo was notified. She has not received any morphine since 9:00 a.m. this morning and now is in considerable amount of pain. Nurse Carrington Heck RN is taking care of her today and explained the situation to me. I have recommended that we change MSIR 15 mg to a half a tablet or 7.5 mg by mouth every 8 hours three times a day. Continue intravenous (IV) morphine 2 mg for visual analog scale (VAS) 8-10/10.
[2016-09-12] MEDS ORDERED: clonazePAM 1 MG TAB PO ONE (18:45)
[2016-09-12] MEDS ORDERED: PREGABALIN 50 MG CAP (LYRICA) PO ONE (19:00)
[2016-09-12] MEDS ORDERED: MORPHINE 2 MG/ML 1ML SYRINGE IV ONE (19:00)
[2016-09-12] MEDS: SIMVASTATIN 40 MG TAB PO SCH (20:10)
[2016-09-12] MEDS: VENLAFAXINE **XR** 75MG CAPSULE PO SCH (20:10)
[2016-09-12 22:00] VITALS: BP 146/78
[2016-09-12 23:21] LABS: INR 1.28
[2016-09-12 23:53] VITALS: O2SAT 93
[2016-09-13] MEDS: MORPHINE 2 MG/ML 1ML SYRINGE IV PRN ×5 (02:12→21:43)
[2016-09-13 06:00] VITALS: BP 146/78
[2016-09-13 06:31] LABS: INR 1.41
[2016-09-13] MEDS ORDERED: WARFARIN SOD 5 MG TAB PO ONE (07:15)
[2016-09-13] MEDS ORDERED: WARFARIN SOD 10 MG TAB PO ONE (07:15)
[2016-09-13] MEDS ORDERED: KETOROLAC 30 MG/ML VIAL (J1885) IV ONE (07:45)
[2016-09-13] MEDS ORDERED: BACLOFEN 5MG PER 1/2 TABLET PO ONE (08:00)
[2016-09-13] MEDS ORDERED: PREGABALIN 50 MG CAP (LYRICA) PO SCH (09:00)
[2016-09-13] MEDS: ENOXAPARIN 80 MG/0.8 ML SYRINGE (J1650) SC SCH ×2 (09:36→20:56)
[2016-09-13] MEDS: NICOTINE 7 MG/24 HR TRANSDERMAL TD SCH (09:37)
[2016-09-13] MEDS: CARBAMIDE PEROXIDE 6.5% OTIC SOLN 15ML AS SCH ×2 (09:38→20:58)
[2016-09-13] MEDS: LIDOCAINE 5% OINT 30 GM TOP SCH (09:38)
[2016-09-13] MEDS: MORPHINE 30 MG TAB **MSIR PO SCH ×3 (09:39→20:57)
[2016-09-13] MEDS: PANTOPRAZOLE 40MG TAB (PROTONIX) PO SCH (09:40)
[2016-09-13] MEDS: clonazePAM 1 MG TAB PO SCH ×3 (09:40→20:56)
[2016-09-13] MEDS: SENOKOT S TAB PO SCH ×2 (09:40→20:56)
[2016-09-13] MEDS: VITAMIN D 1,000 INTERNATIONAL UNITS TABLET PO SCH (09:40)
[2016-09-13] MEDS: CYANOCOBALAMIN 500 MCG TAB PO SCH (09:41)
[2016-09-13] MEDS: D5W 1,000 ML IV SCH ×2 (10:19→18:31)
[2016-09-13] MEDS ORDERED: MORPHINE 30 MG TAB **MSIR PO ONE (12:15)
[2016-09-13 12:19] LABS: MEAN CORPUSCULAR HEMOGLOBIN 32.2 pg (27.0-33.0); MEAN CORPUSCULAR HGB CONC 34.2 g/dl (32.0-36.5); MEAN CORPUSCULAR VOLUME 94.3 fl (80.0-96.0); RED CELL DISTRIBUTION WIDTH 11.6 % (11.5-14.5); WHITE BLOOD COUNT 7.6 K/mm3 (4.0-10.0)
[2016-09-13] MEDS ORDERED: MORPHINE 2 MG/ML 1ML SYRINGE IV ONE (12:45)
[2016-09-13] MEDS ORDERED: PREGABALIN 25 MG CAP (LYRICA) PO ONE (12:45)
[2016-09-13 12:49] LABS: CALCIUM LEVEL 8.5 MG/DL (8.5-10.1); CREATININE FOR GFR 1.08 MG/DL (0.55-1.02); GLOMERULAR FILTRATION RATE 59.2 (>58); POTASSIUM SERUM 4.1 MEQ/L (3.5-5.1)
[2016-09-13] MEDS: MOM 30ML SUSPENSION UDC PO PRN ×2 (13:42→21:43)
[2016-09-13 14:00] VITALS: BP 141/70
--- NOTE | 2016-09-13 15:07 | NOCOX ---
DATE OF PROCEDURE: 09/09/2016 Nocturnal oximetry was performed on room air starting 09/12/2016, then into the morning of 09/13/2016. Heart rate ranged from 25-73, oxygen saturation ranged from 88-100%. I believe the documented heart rate was artifactual. Unfortunately, the patient had the probe removed for a 3-hour period during the middle of the test. There was variable oxygen desaturations without any significant prolonged hypoxia. IMPRESSION: Incomplete test with variable desaturations without prolonged hypoxia. Recommend consideration of testing for sleep apnea if clinically relevant.
[2016-09-13] MEDS: SIMVASTATIN 40 MG TAB PO SCH (20:56)
[2016-09-13] MEDS: VENLAFAXINE **XR** 75MG CAPSULE PO SCH (20:56)
[2016-09-13] MEDS ORDERED: PREGABALIN 75 MG CAP(LYRICA) PO SCH (21:00)
[2016-09-13 22:00] VITALS: BP 124/59
[2016-09-14] MEDS: MORPHINE 2 MG/ML 1ML SYRINGE IV PRN ×3 (02:31→16:00)
[2016-09-14] MEDS: D5W 1,000 ML IV SCH ×4 (03:45→22:42)
[2016-09-14 06:00] VITALS: BP 169/82
--- NOTE | 2016-09-14 06:46 | IPN ---
DATE: 09/13/2016 Patient seen and examined at the bedside. Chart has been reviewed. Yesterday, patient was noted by nursing to have pinpoint pupils, very lethargic. Her morphine was discontinued as were the Lyrica and Effexor. Patient started waking up around 3 or 4 p.m. in the afternoon. We have decreased morphine 7.5 mg three times a day. Patient was extremely unhappy and was demanding for oral increasing doses of opioid medications to be resumed. Patient's medications were decreased and resumed last evening. This morning, she still complains of pain in the back. Per nursing however, she was noted to ambulate well around the room and pivot without much difficulty. She has passed her home safety evaluation but kept in the hospital due to low international normalized ratio (INR) of 1.41 in light history of bilateral pulmonary embolisms (PE) and protein C deficiency. She is currently receiving Lovenox bridge therapy with Coumadin. We have also noted acute kidney injury, currently on intravenous fluids, decreased oral intake due to severe lethargy and obtundation most likely secondary to pain medications. Temperature 98, pulse 61, respiratory rate 18, blood pressure 146/78, 98% on room air. Generally, patient is currently awake, alert, oriented times three, tearful at the bedside. No respiratory distress. No cyanosis. Lungs are clear to auscultation. No wheezing, rales or rhonchi. Heart: S1, S2. Sinus rhythm. Abdomen is soft, nontender, nondistended. Positive bowel sounds. Extremities have no pitting edema. Neurologically, patient has point tenderness around the lumbar paraspinal. Some scoliosis on the left lower thoracic area, which is slightly tenderness. Patient stands unassisted with use of the walker. LABORATORY DATA: 09/12/2016 CBC and metabolic panel have been reviewed. ASSESSMENT AND PLAN: This is a 41-year-old female with history of pulmonary embolism, deep venous thrombosis (DVT), protein C deficiency, on chronic Coumadin, anxiety, dyslipidemia, chronic back pain, fracture of low back and herniated disc with prior history of marijuana use presents with intractable back pain, nonsurgical and had been evaluated by Dr. Vance Gallardo as outpatient. Repeat imaging studies show MRI with L2 nerve compression with lumbar radiculopathy and herniated disc disease. IMPRESSION: 1. Chronic low back pain with lumbar disc displacement and radiculopathy. Patient has been seen by pain management. Patient had been on Lyrica, MSIR with pinpoint pupils, unable to be aroused and lethargic and obtunded. At which point, medications were discontinued and resumed at lower doses. Patient's pain to be controlled as outpatient with pain management. She has passed a home safety evaluation and safe for discharge home. However, patient's INR is still subtherapeutic. Therefore, will continue with Lovenox bridge therapy until therapeutic and may discharge home with outpatient followup with pain management as outpatient. Current regimen includes MSIR 7.5 mg three times a day, Lyrica 50 twice a day, IV morphine for breakthrough pain, with outpatient appointment with pain management 10:30 a.m. on 09/29/2016. 2. Acute encephalopathy with pinpoint pupils and sedation secondary to Lyrica and opioids. Patient's Lyrica has been decreased and opioids have also been decreased. Patient improved significantly with decreasing the doses of these medications. Defer to pain management on Thursday for titration. 3. Protein C deficiency with history of pulmonary embolism and deep venous thrombosis. INR continues to be subtherapeutic. Will continue with bridge therapy, Lovenox and Coumadin, titrate accordingly to target INR of 2-3. Once the patient's INR is therapeutic, we will discontinue Lovenox and switch therapy to her home dose of Coumadin. 4. Anxiety. Patient's medications held due to her increased obtundation. 5. Dyslipidemia. Stable. 6. Hypertension. Medications held due to low blood pressure. DISPOSITION: Discharge home as soon as patient's INR is therapeutic. MTDD
[2016-09-14] MEDS ORDERED: FLEET ENEMA PR PRN (07:00)
[2016-09-14] MEDS ORDERED: LACTULOSE 20 GM/30 ML SYRUP UD PO ONE (07:00)
[2016-09-14] MEDS ORDERED: MORPHINE 2 MG/ML 1ML SYRINGE IV ONE (07:00)
[2016-09-14] MEDS ORDERED: MIRALAX *UNIT DOSE* 17GM PACKET PO PRN (07:00)
[2016-09-14] MEDS ORDERED: LACTULOSE 20 GM/30 ML SYRUP UD PO PRN (07:00)
[2016-09-14 07:16] LABS: INR 2.49
[2016-09-14 07:22] LABS: ANION GAP 5 MEQ/L (8-16); BLOOD UREA NITROGEN 10 MG/DL (7-18); CALCIUM LEVEL 8.3 MG/DL (8.5-10.1); CARBON DIOXIDE LEVEL 31 MEQ/L (21-32); CHLORIDE LEVEL 108 MEQ/L (98-107); CREATININE FOR GFR 1.05 MG/DL (0.55-1.02); GLOMERULAR FILTRATION RATE > 60.0 (>58); GLUCOSE, FASTING 111 MG/DL (70-105); POTASSIUM SERUM 3.9 MEQ/L (3.5-5.1); SODIUM LEVEL 144 MEQ/L (136-145)
[2016-09-14] MEDS ORDERED: CYCLOBENZAPRINE 5MG TABLET PO PRN (07:30)
[2016-09-14] MEDS ORDERED: SENO8.6T10 PO (07:33)
[2016-09-14] MEDS ORDERED: CLON1TAB PO (07:33)
[2016-09-14] MEDS ORDERED: VENL75CA PO (07:33)
[2016-09-14] MEDS ORDERED: CYCL5TA PO (07:33)
[2016-09-14] MEDS ORDERED: NICO7PA TD (07:33)
[2016-09-14] MEDS ORDERED: MSIR30TA PO (07:33)
[2016-09-14] MEDS ORDERED: PEG1POW PO (07:33)
[2016-09-14] MEDS ORDERED: LYRI100C10 PO (07:33)
[2016-09-14] MEDS: clonazePAM 1 MG TAB PO SCH ×3 (09:03→22:42)
[2016-09-14] MEDS: CYANOCOBALAMIN 500 MCG TAB PO SCH (09:03)
[2016-09-14] MEDS: SENOKOT S TAB PO SCH ×2 (09:04→21:00)
[2016-09-14] MEDS: NICOTINE 7 MG/24 HR TRANSDERMAL TD SCH (09:04)
[2016-09-14] MEDS: MORPHINE 30 MG TAB **MSIR PO SCH ×3 (09:04→22:40)
[2016-09-14] MEDS: PREGABALIN 100 MG CAP (LYRICA) PO SCH ×2 (09:05→22:41)
[2016-09-14] MEDS: ENOXAPARIN 100MG/1ML SYRINGE (J1650) SC SCH ×2 (09:05→18:36)
[2016-09-14] MEDS: PANTOPRAZOLE 40MG TAB (PROTONIX) PO SCH (09:05)
[2016-09-14] MEDS: VITAMIN D 1,000 INTERNATIONAL UNITS TABLET PO SCH (09:05)
[2016-09-14] MEDS: LIDOCAINE 5% OINT 30 GM TOP SCH (09:06)
[2016-09-14 14:00] VITALS: BP 170/82
[2016-09-14] MEDS ORDERED: WARFARIN SOD 3 MG TAB PO ONE (17:00)
[2016-09-14] MEDS ORDERED: FLEET ENEMA PR ONE (18:00)
[2016-09-14] MEDS ORDERED: MORP15TA2 PO (18:46)
--- NOTE | 2016-09-14 18:58 | IPN ---
DATE: 09/14/2016 Patient still complains of severe pain radiating down to her foot, radicular pain had been improved with morphine and Lyrica previously, but she did develop acute mental status changes and severe lethargy with pinpoint pupils on Thursday requiring discontinuation of her medications, due to low blood pressure initially also in the 80s with worsening respiratory status. Patient had previously lived in [place] and had seen Dr. Edward Martinez and was also seen by Dr. Jaime Acevedo as of November 2015. Since then, her pain management physician has been arrested. Patient subsequently moved to [place] and had been referred to Dr. Gallardo who recommended Dr. Lundberg. Patient was admitted for intractable back pain. VITAL SIGNS: Temperature 97.7, pulse 50, respiratory rate 21, blood pressure 169/82, 98% on room air. Awake, alert, oriented to person, place and time. Much more awake and alert. LUNGS: Clear to auscultation. No wheezing, rales, or rhonchi. HEART: S1, S2, sinus rhythm. ABDOMEN: Soft, nontender, nondistended. EXTREMITIES: No cyanosis, clubbing, or pitting edema. Patient has point tenderness around the lumbar paraspinal area. Scoliosis left lower thoracic area with some tenderness. LABORATORY DATA: CBC and metabolic panel have been reviewed. INR is 2.49. ASSESSMENT AND PLAN: This is a 41-year-old female with history of pulmonary embolus (PE), deep venous thrombosis (DVT), protein C deficiency, on chronic Coumadin, anxiety, dyslipidemia, chronic back pain, fracture of low back, herniated disc, with prior history of marijuana use, presents with intractable back pain, nonsurgical per orthopedic surgeon Dr. Vance Gallardo, referred to Dr. Lundberg as outpatient, presented to the hospital due to inability to ambulate due to intractable back pain. Since her admission, patient has had episodes of acute mental status change due to opioid narcotics. Patient's morphine and Lyrica were discontinued. Patient continued to complain of severe pain and medications were slowly titrated back up to normal levels. 1. Chronic low back pain with lumbar disc displacement, radiculopathy. Patient will be seeing pain management with first appointment at 10:30 a.m. on 09/29/2016. Patient's Lyrica and morphine sulfate immediate release (MSIR) were discontinued temporarily due to pinpoint pupils, unable to be aroused, persistent lethargy and obtundation. Over the past 3 days we have resumed higher doses of her medications and continue to monitor her clinical status. Patient was bradycardic with low blood pressure initially on pain medications and then became confused, therefore we have spoken to her about slowly titrating her medications due to drug interactions. 2. Acute mental status change with pinpoint pupils and sedation secondary to Lyrica and opioids. Patient's Lyrica has been decreased and slowly titrated back up for better control. Defer to pain management for adjustment. 3. Protein C deficiency, history of pulmonary embolus (PE), and deep venous thrombosis (DVT). INR was subtherapeutic. Patient was bridged with Lovenox and Coumadin. Target INR is reached today at 2.47. Will discontinue Lovenox if patient is persistently therapeutic and discharge home in the morning. 4. Anxiety. Patient's medications were temporarily held due to increased obtundation and pinpoint pupils. 5. Dyslipidemia. Stable. 6. Hypertension. Medications held initially due to low blood pressure. DISPOSITION: May discharge home in the morning. MTDD
[2016-09-14] MEDS ORDERED: MORPHINE 4 MG/ML 1ML SYRINGE IV ONE (19:00)
[2016-09-14 20:30] VITALS: O2SAT 98
[2016-09-14] MEDS ORDERED: MORPHINE 30 MG TAB **MSIR PO SCH (21:00)
[2016-09-14 22:00] VITALS: BP 121/68
[2016-09-14] MEDS: VENLAFAXINE **XR** 75MG CAPSULE PO SCH (22:41)
[2016-09-14] MEDS: SIMVASTATIN 40 MG TAB PO SCH (22:42)
[2016-09-14 23:20] LABS: INR 2.65
[2016-09-14 23:33] LABS: ANION GAP 5 MEQ/L (8-16); BLOOD UREA NITROGEN 8 MG/DL (7-18); CALCIUM LEVEL 8.2 MG/DL (8.5-10.1); CARBON DIOXIDE LEVEL 31 MEQ/L (21-32); CHLORIDE LEVEL 106 MEQ/L (98-107); CREATININE FOR GFR 0.99 MG/DL (0.55-1.02); GLOMERULAR FILTRATION RATE > 60.0 (>58); GLUCOSE, FASTING 98 MG/DL (70-105); POTASSIUM SERUM 3.9 MEQ/L (3.5-5.1); SODIUM LEVEL 142 MEQ/L (136-145)
[2016-09-14] MEDS: MORPHINE 4 MG/ML 1ML SYRINGE IV PRN (23:51)
[2016-09-15] MEDS: MORPHINE 4 MG/ML 1ML SYRINGE IV PRN (03:11)
[2016-09-15 06:00] VITALS: BP 125/59
[2016-09-15 06:43] LABS: INR 2.48
[2016-09-15 06:49] LABS: ANION GAP 8 MEQ/L (8-16); BLOOD UREA NITROGEN 7 MG/DL (7-18); CALCIUM LEVEL 8.1 MG/DL (8.5-10.1); CARBON DIOXIDE LEVEL 28 MEQ/L (21-32); CHLORIDE LEVEL 106 MEQ/L (98-107); CREATININE FOR GFR 0.99 MG/DL (0.55-1.02); GLOMERULAR FILTRATION RATE > 60.0 (>58); GLUCOSE, FASTING 114 MG/DL (70-105); POTASSIUM SERUM 3.7 MEQ/L (3.5-5.1); SODIUM LEVEL 142 MEQ/L (136-145)
[2016-09-15] MEDS: SENOKOT S TAB PO SCH (09:00)
[2016-09-15] MEDS: MORPHINE 30 MG TAB **MSIR PO SCH (09:47)
[2016-09-15] MEDS: PREGABALIN 100 MG CAP (LYRICA) PO SCH (09:47)
[2016-09-15] MEDS: clonazePAM 1 MG TAB PO SCH (09:47)
[2016-09-15] MEDS: NICOTINE 7 MG/24 HR TRANSDERMAL TD SCH (09:48)
[2016-09-15] MEDS: PANTOPRAZOLE 40MG TAB (PROTONIX) PO SCH (09:48)
[2016-09-15] MEDS: CYANOCOBALAMIN 500 MCG TAB PO SCH (09:48)
[2016-09-15] MEDS: VITAMIN D 1,000 INTERNATIONAL UNITS TABLET PO SCH (09:48)
[2016-09-15] MEDS: LIDOCAINE 5% OINT 30 GM TOP SCH (09:49)
--- NOTE | 2016-09-15 13:59 | DSES ---
DATE OF ADMISSION: 09/09/2016 DATE OF DISCHARGE: [employer]INE OPERATOR: Anne Luong, pain management. PRIMARY DISCHARGE DIAGNOSES: 1. Chronic low back pain with lumbar disc displacement and radiculopathy. 2. Acute mental status change with pinpoint pupils and sedation secondary to Lyrica and opioids. 3. and protein C deficiency with a history of pulmonary embolus and deep vein thrombosis (DVT). INR 2.48 on hospital discharge. 4. Chronic insomnia. 5. Chronic anxiety. 6. Dyslipidemia. DISCHARGE MEDICATIONS: - morphine sulfate 15 mg by mouth three times a day, #45 tablets dispensed - Lyrica 100 mg twice a day - cyclobenzaprine 5 mg every 6 hours as needed for spasms, #30 tablets dispensed - clonazepam 1 mg three times a day, #42 tablets dispensed - nicotine patch 7 mg daily - MiraLAX one packet daily - venlafaxine 75 mg at night, #30 tablets dispensed - Senokot S one tablet twice a day, #28 tablets - vitamin D 1000 units daily - vitamin B12 1000 mcg daily - simvastatin 40 mg at night - home dose of warfarin 8 mg four times a week, 1 mg three times a week, 6 mg three times a week The patient has a pain management appointment at 10:30 a.m. on 09/29/2016. HOSPITALIZATION COURSE: This is a 41-year-old female with a history of pulmonary embolism, DVT, protein C deficiency, on chronic Coumadin, anxiety, dyslipidemia, chronic back pain, fracture of lower back, herniated disc, prior history of marijuana use, who presents with intractable back pain, which was nonsurgical per orthopedic surgeon, Dr. Vance Gallardo. Refer to Dr. Lundberg as an outpatient, [facility] in [place]. Presented to the emergency room with complaints of inability to ambulate due to intractable back pain. The patient complains of severe pain and inability to ambulate, evaluated by pain management, who recommended Lyrica, as well as morphine. The patient developed pinpoint pupils, was unarousable and lethargic. Lactic acid was normal. The patient's morphine and Lyrica were discontinued, as slowly titrated back up to her normal dose. The patient was very demanding about the dosage of medications and was very upset with discontinuation of her medications when she was obtunded. The patient had low blood pressure in the 80s, as well as heart rate in the 40s during this episode. The patient rebounded back with no significant sequelae and currently passed a home safety evaluation for hospital discharge. During the admission, she had episodes of acute mental status change with pinpoint pupils and sedation secondary to Lyrica and opioid. The Lyrica and opioids were discontinued initially and then restarted at slower doses and monitored. The patient's Coumadin was held due to elevated INR, which was then bridged with Lovenox to a therapeutic level of 2.48. On hospital discharge, she may resume a home dose. She had complaints of left ear hearing loss, most likely secondary to cerumen and treated with Debrox, as well as sore throat. Evaluated with a throat screen, which showed normal miguel. LABORATORIES ON DISCHARGE: INR 2.48, white count 7.6, hemoglobin 12, hematocrit 37, platelet count 197. Sodium 142, potassium 3.7, chloride 106, bicarbonate 28, BUN 7, creatinine 0.99, glucose of 114. Microbiology: Throat culture showed normal miguel. Thoracic spine MRI: Disc bulges of T9 to T10, T12 to L1 without spinal cord compression. Lumbar spine MRI showed diffuse disc bulge of L1-L2, L5-S1, L2-L3, L4-L5. Compression of right L2 and left L4 in the neural foramina. Compression of L3 in the neural foramina. Cervical spine MRI: Cervical spondylosis at C3-4, C5-6, C7-8 without spinal cord compression. Time spent on discharge: 30 minutes.
== END 2016-09-15 14:25 | disposition home or self-care (01) | DRG 551 ==
LOC: M ED 21:31 → M ED INP 09-09 01:21 → M MS5PR 09-09 03:00
PROVIDERS: ADMIT Hospitalist; ATTEND General Practice
DX: M51.16 Intervertebral disc disorders with radiculopathy, lumbar region (principal); G92 Toxic encephalopathy; D68.59 Other primary thrombophilia; N17.9 Acute kidney failure, unspecified; F41.9 Anxiety disorder, unspecified; E78.5 Hyperlipidemia, unspecified; F17.210 Nicotine dependence, cigarettes, uncomplicated; I10 Essential (primary) hypertension; I95.2 Hypotension due to drugs; T39.95XA Adverse effect of unspecified nonopioid analgesic, antipyretic and antirheumatic, initial encounter; T40.2X5A Adverse effect of other opioids, initial encounter; T43.8X5A Adverse effect of other psychotropic drugs, initial encounter; H61.22 Impacted cerumen, left ear; Z86.711 Personal history of pulmonary embolism; Z79.01 Long term (current) use of anticoagulants; Z88.6 Allergy status to analgesic agent; Z88.1 Allergy status to other antibiotic agents; Z88.8 Allergy status to other drugs, medicaments and biological substances; Z86.718 Personal history of other venous thrombosis and embolism; Z79.899 Other long term (current) drug therapy

== ENCOUNTER → 2016-09-29 | Outpatient (CLI) | payer OTHER ==
[~2016-09-29] MED LIST: BACL-67 PO; CLON0.5T PO; CLON1TAB PO; CYCL5TA PO; ENAL10TA2 PO; LYRI100C10 PO; MORP-38 PO; MORP15TA2 PO; MSIR30TA PO; NICO7PA TD; PEG1POW PO; SENO8.6T10 PO; SIMV40TA2 PO; VENL75CA PO; VENL75CA47 PO; VITA10002 PO; VITA100066 PO; WARF-20 PO; WARF-60 PO; WARF4TAB52 PO
== END ==
LOC: M PAIN 10:30
PROVIDERS: ATTEND Nurse Practitioner Family
DX: M54.5 Low back pain (principal); Z53.9 Procedure and treatment not carried out, unspecified reason

== ENCOUNTER → 2016-10-01 | Outpatient (CLI) | payer OTHER ==
--- NOTE | 2016-10-01 23:21 | ECWPNPC ---
PATIENT NAME: ADAM SMITH : 1975 GENDER: FEMALE VISIT DATE: 10/01/2016 DISCHARGE DATE: 10/01/16 1529 VISIT LOCKED DATE TIME: PHYSICIAN: ELISE JORDAN RESOURCE: ELISE JORDAN REASON FOR APPOINTMENT 1. WORKER COMP, CHRONIC BACK PAIN HISTORY OF PRESENT ILLNESS NEW PATIENT CONSULT: WHEN DID YOUR PAIN FIRST START? . BRIEFLY DESCRIBE HOW YOUR PAIN STARTED? . HOW DOES YOUR PAIN CHANGE WITH TIME? . DOES YOUR PAIN AWAKEN YOU FROM SLEEP? . HOW MANY HOURS OF SLEEP DO YOU NORMALLY GET? . ANY DIAGNOSTIC TESTING? . FACILITY WHERE TESTS WERE DONE? ____. PAIN TREATMENT TREATMENT YES CANCER HAVE YOU EVER HAD ANY TYPE OF CANCER?NO NO. 41 Y/O FEMALE INITIALLY SEEN IN HOSPITAL FOR CHRONIC LOW BACK PAIN THAT WAS OUT OF CONTROL AND SHE COULDNT WALK.SHE WAS ADMITTED FOR 4 DAYS.REPORTS ONE HOUR OR SO OF IMPROVEMENT IN PAIN AFTER TAKING MORPHINE 15MG IR.USING 3 TAB PER DAY.RATING PAIN VAS 9/10.PAIN IS LOCATED ACROSS LOW BACK AND DOWN RIGHT THIGH.HAS LEFT LEG PARATHESIAS AND WEAKNESS. THIS IS CHRONIC.REPORTS FREQUENT FALLING SECONDARY TO LEFT LEG GIVING OUT.HAS NEVER SEEN NEUROLOGY.HAS SEVERE SCOLIOSIS AND LEFT THORACIC BURNING PAIN SINCE ACCIDENT.PATIENT STATES ALL PAIN IS RELATED TO WORK RELATED INJURY 02-15-09.REPORTS LOSS OF CONTROL OF URINE PRN WHICH HAS BEEN CHRONIC PAST 2 YEARS.HAS BEEN EVALUATED BY DR. RENEE FOR SURGICAL EVALUATION OF SPINE BUT HE DID NOT RECOMMEND SURGERY DUE TO PROTEIN C DEFICIENCY WITH HX OF SEVERAL DVT,S AND PULMONARY EMBOLI.ON CHRONIC COUMADIN THERAPY.REPORTING NORMAL BOWEL MOVEMENTS.PATIENT IS CRYING PERIODICALLY DURING VISIT DO TO HER INABILITY TO TOLERATE ADL'S AND LIVE INDEPENDENTLY DUE TO PAIN. PAIN SCREENING: PATIENT HAS A COMPLAINT OF ACUTE OR CHRONIC PAIN YES FALL RISK SCREENING: SCREENING :NO FALLS IN THE PAST YEAR TAYLOR INVENTORY: QUESTIONNAIRE ASSESSEDTBD SCORE VALUE CALCULATED TBD CURRENT MEDICATIONS TAKING BENADRYL ALLERGY 25 MG TABLET ORALLY TAKING VENLAFAXINE HCL ER 75 MG CAPSULE EXTENDED RELEASE 24 HOUR 1 CAPSULE WITH FOOD ORALLY ONCE A DAY TAKING SIMVASTATIN 40 MG TABLET 1 TABLET IN THE EVENING ORALLY ONCE A DAY TAKING ENALAPRIL MALEATE 10 MG TABLET 1 TABLET ORALLY ONCE A DAY TAKING WARFARIN SODIUM 1 MG TABLET 1-2 TABLET ORALLY ONCE A DAY TAKING WARFARIN SODIUM 5 MG TABLET 1 TABLET ORALLY ONCE A DAY TAKING CLONAZEPAM 1 MG TABLET 1 TABLET ORALLY THREE TIME DAILY MDD #3 TAKING CLONAZEPAM 0.5 MG TABLET 1 TABLET ORALLY QHS MDD #1 TAKING BACLOFEN 20 MG TABLET 1 TABLET WITH FOOD OR MILK ORALLY EVERY 8 HRS TAKING MORPHINE SULFATE 15 MG TABLET 1 TABLET NEEDED ORALLY EVERY 8 HOURS NOT-TAKING LYRICA 100 MG CAPSULE 1 CAPSULE ORALLY TWICE A DAY MEDICATION LIST REVIEWED AND RECONCILED WITH THE PATIENT PAST MEDICAL HISTORY CHRONIC BACK PAIN PROTEIN C DEFICIENCY ANXIETY DEPRESSION HYPERTENSION HYPERLIPIDEMIA ALLERGIES AUGMENTIN: NAUSEA/VOMITING: ALLERGY HYDROCODONE-ACETAMINOPHEN: HALLUCINATION: ALLERGY PERCOCET: ITCHING: ALLERGY METHADONE: DROWSINESS: ALLERGY NUCYNTA: DEPRESSION: ALLERGY FENTANYL: NAUSEA/VOMITING: ALLERGY LYRICA: LEG SWELLING: ALLERGY SURGICAL HISTORY NO SURGICAL HISTORY DOCUMENTED. FAMILY HISTORY FATHER: ALIVE MOTHER: UNKNOWN SIBLINGS: UNKNOWN SOCIAL HISTORY GENERAL: TOBACCO USE ARE YOU A:CURRENT SMOKER HOW MANY CIGARETTES A DAY DO YOU SMOKE?11-20 HOW SOON AFTER YOU WAKE UP DO YOU SMOKE YOUR FIRST CIGARETTE?6-30 MIN HOW OFTEN DO YOU SMOKE CIGARETTES?EVERY DAY PATIENT COUNSELED ON THE DANGERS OF TOBACCO USE AND URGED TO QUIT:10/01/2016 ARE YOU INTERESTED IN QUITTING?THINKING ABOUT QUITTING COUNSELED THE PATIENT ON SMOKING CESSATION, EDUCATION [id number]/01/2017 RECREATIONAL DRUG USE DRUG USE?NO CAFFEINE CAFFEINE USE?NO MARITAL STATUS: SINGLE. OTHERS AT HOME: FATHER. JAINISM: SPIRITUALIST. LANGUAGE: SPANISH. EDUCATION: BS DEGREE IN SOCIAL WORK. IMMUNIZATION PROGRAM BS DEGREE IN SOCIAL WORK. PSYCHOLOGICAL HX TREATMENTNO PAIN CLINIC PFS, CLERGY, PUBLIC HEALTH REFERRALS CLERGY REFERRAL NEEDED?NO WAS THE PROVIDER NOTIFIED OF ANY PERTINENT INFO?NO PFS REFERRAL NEEDED?NO PUBLIC HEALTH REFERRAL NEEDED?NO PATIENT: ____. ADVANCED DIRECTIVES HEALTH CARE PROXY?NO POWER OF DIELECTRIC TESTING MACHINE OPERATOR?NO HOSPITALIZATION/MAJOR DIAGNOSTIC PROCEDURE 2 HOSPITALIZATIONS DUE TO PE/ PROTEIN C DEFICIENCY REVIEW OF SYSTEMS CONSTITUTIONAL: RECENT ILLNESS DENIES . ANY CHANGE IN YOUR MEDICAL CONDITION? NO . CHILLS NO . FEVER NO, DENIES . WEIGHT LOSS DENIES . INFECTION: DO YOU HAVE NEW INFECTIONS? NO . DO YOU HAVE HISTORY OF MRSA? NO . MUSCULOSKELETAL: ANY NEW PATTERNS OF PAIN OR NUMBNESS? YES . SYTEMIC LUPUS NO . JOINT PAIN DENIES . JOINT STIFFNESS DENIES . GASTROENTEROLOGY: BOWEL INCONTINENCE DENIES . ANY NEW CHANGE IN BOWEL CONTROL? NO . BARRETTS ESOPHAGUS NO . CIRRHOSIS NO . HEPATITIS NO . LIVER FAILURE NO . ACID REFLUX NO . BLOOD IN STOOL DENIES . UNEXPLAINED WEIGHT LOSS NO . GENITOURINARY: ANY NEW CHANGE IN BLADDER CONTROL? NO . IS THERE A CHANCE YOU COULD BE ? NO . HEMATOLOGY/LYMPH: DENIES . BLEEDING DISORDER DENIES . DO YOU TAKE ANY BLOOD THINNERS? (FOR EXAMPLE- COUMADIN, PLAVIX, AGGRENOX, PLATEL, PRADAXA, OR XARELTO) YES . WHEN WAS YOUR LAST DOSE? DATE: TIME: . LOW PLATELET COUNT NO . SICKLE CELL DISEASE NO . VON WILLIEBRANDS NO . FACTOR V LEIDEN NO . THALLASEMIA NO . ANEMIA NO . EASY BRUISING NO . NEUROLOGY: HAVE YOU FALLEN IN THE PAST 6 MONTHS? YES . ANY NEW EXTREMITY NUMBNESS OR WEAKNESS? NO . HEAD INJURY NO . DEMENTIA NO . CEREBRAL PALSY NO . MULTIPLE SCLEROSIS NO . DIZZINESS NO . HEADACHE NO, DENIES . SEIZURES DENIES . STROKES NO . VERTIGO NO . CARDIOLOGY: DO YOU HAVE A PACEMAKER OR DEFIBRILLATOR? NO . ANGINA NO . HEART ATTACK NO . HEART SURGERY NO . CONGESTIVE HEART FAILURE/FLUID OVERLOAD NO . CHEST PAIN NO, DENIES . HIGH BLOOD PRESSURE NO . IRREGULAR HEART BEAT NO . SHORTNESS OF BREATH DENIES . RESPIRATORY: HAVE YOU BEEN SICK IN THE PAST WEEK? NO . FEVER NO . FLU LIKE SYMPTOMS? NO . CPAP NO . BYPAP NO . ASTHMA NO . EMPHYSEMA NO . CHRONIC LUNG DISEASES NO . SHORTNESS OF BREATH ON EXERTION NO . DO YOU USE ANY TYPE OF TOBACCO (SMOKE, SMOKELESS, CHEW)? NO . COUGH NO, DENIES . SHORTNESS OF BREATH DENIES . SNORING NO . INTEGUMENTARY: DO YOU HAVE ANY RASHES OR OPEN SORES? NO . ALLERGIC/IMMUNO: ARE YOU ALLERGIC TO SHELLFISH OR IV DYE? NO . ANY NEW ALLERGIES? NO . PSYCHIATRIC: DO YOU HAVE THOUGHTS OF HURTING YOURSELF OR SOMEONE ELSE? NO . ARE YOU ABUSED, NEGLECTED, OR IN AN UNSAFE ENVIRONMENT? NO . ENDOCRINOLOGY: THYROID DISEASE DENIES . ARE YOU DIABETIC? NO . DIABETES DENIES . THYROID DISORDER NO . OTHER: DO YOU NEED ANY PRESCRIPTIONS? YES, NEED SCRIPT FOR MORPHINE. BROUGHT LYRICA TO BE WASTED . IF YES, PLEASE LIST: ____ . ANY NEW PROBLEMS WITH YOUR MEDICATIONS? NO . WHEN DID YOU LAST EAT? ____ . WHEN DID YOU LAST DRINK? ____ . WHAT DID YOU LAST DRINK? ____ . NAME OF PERSON DRIVING YOU HOME? ____ . DO YOU HAVE ANY OTHER QUESTIONS OR CONCERNS NO . HEENT: CHANGE IN VISION DENIES . LOSS OF HEARING DENIES . TROUBLE SWALLOWING DENIES . PSYCHOLOGY: ANXIETY DENIES . DEPRESSION DENIES . UROLOGY: URINARY INCONTINENCE DENIES . BLOOD IN URINE DENIES . REVIEWED BY: PROVIDER: ELISE BLACKWELL . VITAL SIGNS WT 198 LBS, HT 5'1", BMI 37.41 INDEX, BP 118/74 MM HG, HR 74 /MIN, RR 16 /MIN, TEMP 98 F,2 F, SAFE IN ENV? (Y/N) YES, REVIEWED BY: KG. EXAMINATION GENERAL EXAMINATION: HEENT:HEAD:, NORMOCEPHALIC, EYES:, EYES NORMAL, NOSE:, NOSE CLEAR, THROAT: NORMAL. LUNGS:LUNG SOUNDS ARE CLEAR. HEART:HEART RATE REGULAR. ABDOMEN:SOFT AND NOT TENDER, NON-DISTENDED. MUSCULOSKELETAL:*. LUMBAR SACRAL SPINEMUSCLE STRENGTH TESTING 5/5 BILATERAL, PALPATION: NEGATIVE FOR PAIN OVER L/S SPINE. NEGATIVE FOR PAIN OVER L/S PARSPINALS. THORACIC SPINENEGATIVE FOR PAIN WITH PALPATION OF THORACIC SPINE. NEGATIVE FOR PAIN WITH PALPATION OF THORACIC PARASPINAL. CERVICALNEGATIVE FOR PAIN WITH PALPATION OF CERVICAL SPINE. NEGATIVE FOR PAIN WITH PALPATION OF CERVICAL PARASPINALS. NEGATIVE FOR PAIN WITH PALPATION OF TRAPEZIUS BILAT. SKIN:NORMAL, NO RASH. NEUROLOGIC EXAM:ALERT AND ORIENTED X 3, DTRS 1-2+ IN ALL 4 EXTREMITIES, DENIES UPPER EXTREMETIES SENSORY LOSS, DENIES LOWER EXTREMETIES SENSORY LOSS. DIAGNOSTIC: . WALKS WITH ASSIST OF CANE W SLOW ANTALGIC GAIT. ASSESSMENTS LUMBAGO WITH SCIATICA, LEFT SIDE - M54.42 (PRIMARY) CHRONIC PRESCRIPTION OPIATE USE - Z79.891 TREATMENT OTHERS INCREASE BACLOFEN TABLET, 20 MG, 1 TABLET WITH FOOD OR MILK, ORALLY, EVERY 6 HRS, 30 DAY(S), 120, REFILLS 2 INCREASE MORPHINE SULFATE TABLET, 15 MG, 1 TABLET NEEDED, ORALLY, EVERY 6 HOURS MDD4, 30 DAY(S), 120, REFILLS 0 CLINICAL NOTES: ISTOP REGISTRY REVIEWED AND DEMONSTRATES COMPLIANCE. PROCEDURES PN WORKMANS' COMP OPINION IN YOUR OPINION, WAS THE INCIDENT THAT THE PATIENT DESCRIBED THE COMPETENT MEDICAL CAUSE OF THIS INJURY/ILLNESS? YES ARE THE PATIENT'S COMPLAINTS CONSISTENT WITH HIS/HER HISTORY OF THE INJURY/ILLNESS? YES IS THE PATIENT'S HISTORY OF THE INJURY/ILLNESS CONSISTENT WITH YOUR OBJECTIVE FINDING? YES WHAT IS THE PERCENTAGE OF TEMPORARY IMPAIRMENT? MILD = 25% IS THE PATIENT WORKING? YES DOCTOR ON SITE: LASHON DINERO MD PROCEDURE CODES FA211 ESTABILISHED PATIENT [facility] FACILITY CHARGE DISPOSITION & COMMUNICATION FOLLOW UP 4 WEEKS (REASON: W/C REQUEST THORACIC /LUMBAR SUPPORT BRACE-JEZ BRENNAN.) ELECTRONICALLY SIGNED BY ROSALVA PATINO ON 10/01/2016 AT 04:42 PM EST DISCLAIMER : THIS IS A VISIT SUMMARY EXTRACTED FROM THE [employer] CHART. IT IS NOT A COPY OF THE [employer] PROGRESS NOTE. GEETA
== END ==
LOC: M PAIN 13:20
PROVIDERS: ATTEND Nurse Practitioner Family
DX: M54.42 Lumbago with sciatica, left side (principal); M41.9 Scoliosis, unspecified; G89.29 Other chronic pain; Z79.891 Long term (current) use of opiate analgesic; Z79.01 Long term (current) use of anticoagulants; D68.59 Other primary thrombophilia; Z86.711 Personal history of pulmonary embolism; F41.9 Anxiety disorder, unspecified; F33.1 Major depressive disorder, recurrent, moderate; I10 Essential (primary) hypertension; E78.2 Mixed hyperlipidemia; Z72.0 Tobacco use; Z88.1 Allergy status to other antibiotic agents; Z88.6 Allergy status to analgesic agent; Z88.8 Allergy status to other drugs, medicaments and biological substances

== ENCOUNTER → 2016-10-29 | Outpatient (CLI) | payer OTHER ==
--- NOTE | 2016-10-30 00:20 | ECWPNPC ---
PATIENT NAME: ADAM SMITH : 1975 GENDER: FEMALE VISIT DATE: 10/29/2016 DISCHARGE DATE: 10/29/16 1203 VISIT LOCKED DATE TIME: PHYSICIAN: ELISE JORDAN RESOURCE: ELISE JORDAN REASON FOR APPOINTMENT 1. BACK HISTORY OF PRESENT ILLNESS HISTORY OF PRESENT ILLNESS: HERE FOR F/U AND MANAGEMENT OF PERSISTENT LOW BACK PAIN.FEELS MORPHINE 15MG Q6H PRN IS HELPFUL.STATES SHE HAS INCREASED WALKING AND SPENDING LESS TIME IN BED.REPORTING MORE EPISODES OF URINARY LEAKAGE.REPORTS EPISODES OF DOUBLE VISION PAST 2 YEARS.REPORTING FREQUENT FALLS DUE TO LEFT LEG GIVING OUT.HAS APT. TO SEE FOR CONSULT ON November.RATING PAIN VAS 8/10. FALL RISK SCREENING: SCREENING :TWO OR MORE FALLS WITHOUT INJURY IN THE PAST YEAR CURRENT MEDICATIONS TAKING WARFARIN SODIUM 1 MG TABLET 1-2 TABLET ORALLY ONCE A DAY TAKING WARFARIN SODIUM 5 MG TABLET 1 TABLET ORALLY ONCE A DAY TAKING BACLOFEN 20 MG TABLET 1 TABLET WITH FOOD OR MILK ORALLY EVERY 6 HRS TAKING MORPHINE SULFATE 15 MG TABLET 1 TABLET NEEDED ORALLY EVERY 6 HOURS MDD4 TAKING VITAMIN D (CHOLECALCIFEROL) 1000 UNIT CAPSULE 1 CAPSULE ORALLY ONCE A DAY TAKING VITAMIN B COMPLEX - TABLET ORALLY TAKING SIMVASTATIN 40 MG TABLET 1 TABLET IN THE EVENING ORALLY ONCE A DAY TAKING VENLAFAXINE HCL ER 75 MG CAPSULE EXTENDED RELEASE 24 HOUR 1 CAPSULE WITH FOOD ORALLY ONCE A DAY TAKING ENALAPRIL MALEATE 5 MG TABLET 1 TABLET ORALLY ONCE A DAY TAKING CLONAZEPAM 1 MG TABLET 1 TABLET ORALLY THREE TIME DAILY MDD #3 TAKING CLONAZEPAM 0.5 MG TABLET 1 TABLET ORALLY QHS MDD #1 TAKING PHYSICAL THERAPY EVALUATE AND TREAT PHYSICAL THERAPY DIRECTED 1-3X/WEEK DX CHRONIC NECK PAIN/CHRONIC BACK PAIN MEDICATION LIST REVIEWED AND RECONCILED WITH THE PATIENT PAST MEDICAL HISTORY CHRONIC BACK PAIN PROTEIN C DEFICIENCY ANXIETY DEPRESSION HYPERTENSION HYPERLIPIDEMIA ALLERGIES AUGMENTIN: NAUSEA/VOMITING: ALLERGY HYDROCODONE-ACETAMINOPHEN: HALLUCINATION: ALLERGY PERCOCET: ITCHING: ALLERGY METHADONE: DROWSINESS: ALLERGY NUCYNTA: DEPRESSION: ALLERGY FENTANYL: NAUSEA/VOMITING: ALLERGY LYRICA: LEG SWELLING: ALLERGY SURGICAL HISTORY DENIES PAST SURGICAL HISTORY FAMILY HISTORY FATHER: ALIVE MOTHER: UNKNOWN SIBLINGS: UNKNOWN SOCIAL HISTORY GENERAL: TOBACCO USE ARE YOU A:CURRENT SMOKER HOW MANY CIGARETTES A DAY DO YOU SMOKE?11-20 HOW SOON AFTER YOU WAKE UP DO YOU SMOKE YOUR FIRST CIGARETTE?6-30 MIN HOW OFTEN DO YOU SMOKE CIGARETTES?EVERY DAY PATIENT COUNSELED ON THE DANGERS OF TOBACCO USE AND URGED TO QUIT:10/10/2016 CESSATION INFORMATION OFFERED AND DECLINED. ARE YOU INTERESTED IN QUITTING?THINKING ABOUT QUITTING COUNSELED THE PATIENT ON SMOKING CESSATION, EDUCATION [id number]/10/2017 SMOKING CESSATION INFORMATION GIVEN10/10/2016 ALCOHOL SCREENING DID YOU HAVE A DRINK CONTAINING ALCOHOL IN THE PAST YEAR?NO POINTS0 INTERPRETATIONNEGATIVE RECREATIONAL DRUG USE DRUG USE?NO CAFFEINE CAFFEINE USE?NO HIV / HEP-C SCREENING HIV TEST OFFERED TO PATIENT:YES DATE OFFERED:10/10/2016 TEST ACCEPTED:NO REASON:PATIENT DECLINED HEP-C TEST OFFERED TO PATIENT:NO OCCUPATION: DISABLED. DIET: REGULAR. EXERCISE: NO REGULAR EXERCISE. MARITAL STATUS: SINGLE. OTHERS AT HOME: FATHER. BAPTIST: SPIRITUALIST. LANGUAGE: MOHAWK. EDUCATION: BS DEGREE IN SOCIAL WORK. LEARNING BARRIERS / SPECIAL NEEDS CHANGE FROM LAST VISIT?NO BARRIERS TO LEARNING?NO HEARING IMPAIRED?NO VISION IMPAIRED?NO COGNITIVELY IMPAIRED?NO READINESS TO LEARN?YES LEARNING PREFERENCES?NO LEARNING CAPABILITIES PRESENT?YES EMOTIONAL BARRIERS?NO SPECIAL DEVICES?YES :CANE PAINT FORMULATOR NEEDED?NO IMMUNIZATION PROGRAM BS DEGREE IN SOCIAL WORK. PSYCHOLOGICAL HX TREATMENTNO PAIN CLINIC PFS, CLERGY, PUBLIC HEALTH REFERRALS CLERGY REFERRAL NEEDED?NO WAS THE PROVIDER NOTIFIED OF ANY PERTINENT INFO?NO PFS REFERRAL NEEDED?NO PUBLIC HEALTH REFERRAL NEEDED?NO PATIENT: ____. ADVANCED DIRECTIVES HEALTH CARE PROXY?NO POWER OF FILAMENT WOUND PARTS FABRICATOR?NO HOSPITALIZATION/MAJOR DIAGNOSTIC PROCEDURE 2 HOSPITALIZATIONS DUE TO PE/ PROTEIN C DEFICIENCY 09/2016 REVIEW OF SYSTEMS CONSTITUTIONAL: ANY CHANGE IN YOUR MEDICAL CONDITION? NO . CHILLS NO . FEVER NO . INFECTION: DO YOU HAVE NEW INFECTIONS? NO . DO YOU HAVE HISTORY OF MRSA? NO . MUSCULOSKELETAL: ANY NEW PATTERNS OF PAIN OR NUMBNESS? NO . GASTROENTEROLOGY: ANY NEW CHANGE IN BOWEL CONTROL? NO . GENITOURINARY: ANY NEW CHANGE IN BLADDER CONTROL? YES, CONTROL WORSE . IS THERE A CHANCE YOU COULD BE ? NO . HEMATOLOGY/LYMPH: DO YOU TAKE ANY BLOOD THINNERS? (FOR EXAMPLE- COUMADIN, PLAVIX, AGGRENOX, PLATEL, PRADAXA, OR XARELTO) YES . WHEN WAS YOUR LAST DOSE? DATE: TIME: . NEUROLOGY: HAVE YOU FALLEN IN THE PAST 6 MONTHS? YES . ANY NEW EXTREMITY NUMBNESS OR WEAKNESS? NO . CARDIOLOGY: DO YOU HAVE A PACEMAKER OR DEFIBRILLATOR? NO . RESPIRATORY: HAVE YOU BEEN SICK IN THE PAST WEEK? NO . FEVER NO . FLU LIKE SYMPTOMS? NO . COUGH NO . INTEGUMENTARY: DO YOU HAVE ANY RASHES OR OPEN SORES? NO . ALLERGIC/IMMUNO: ARE YOU ALLERGIC TO SHELLFISH OR IV DYE? NO . ANY NEW ALLERGIES? NO . PSYCHIATRIC: DO YOU HAVE THOUGHTS OF HURTING YOURSELF OR SOMEONE ELSE? NO . ARE YOU ABUSED, NEGLECTED, OR IN AN UNSAFE ENVIRONMENT? NO . ENDOCRINOLOGY: ARE YOU DIABETIC? NO . OTHER: DO YOU NEED ANY PRESCRIPTIONS? YES . IF YES, PLEASE LIST: MORPHINE SULFATE . ANY NEW PROBLEMS WITH YOUR MEDICATIONS? NO . WHEN DID YOU LAST EAT? ____ . WHEN DID YOU LAST DRINK? ____ . WHAT DID YOU LAST DRINK? ____ . NAME OF PERSON DRIVING YOU HOME? ____ . DO YOU HAVE ANY OTHER QUESTIONS OR CONCERNS YES, WOULD LIKE TO GO TO PT IN [place] . REVIEWED BY: PROVIDER: ELISE BLACKWELL . VITAL SIGNS WT 195.2 LBS, HT 5'1", BMI 36.88 INDEX, BP 139/79 MM HG, HR 80 /MIN, RR 16 /MIN, TEMP 99.7 F, OXYGEN SAT % 98%, NA INITIALS SC 1:12. EXAMINATION GENERAL EXAMINATION: HEENT:HEAD:, NORMOCEPHALIC, EYES:, EYES NORMAL, NOSE:, NOSE CLEAR, THROAT: NORMAL. LUNGS:LUNG SOUNDS ARE CLEAR. HEART:HEART RATE REGULAR. ABDOMEN:SOFT AND NOT TENDER, NON-DISTENDED. MUSCULOSKELETAL:*. LUMBAR SACRAL SPINEMUSCLE STRENGTH TESTING 5/5 BILATERAL, PALPATION: NEGATIVE FOR PAIN OVER L/S SPINE. NEGATIVE FOR PAIN OVER L/S PARSPINALS. THORACIC SPINENEGATIVE FOR PAIN WITH PALPATION OF THORACIC SPINE. NEGATIVE FOR PAIN WITH PALPATION OF THORACIC PARASPINAL. CERVICALNEGATIVE FOR PAIN WITH PALPATION OF CERVICAL SPINE. NEGATIVE FOR PAIN WITH PALPATION OF CERVICAL PARASPINALS. NEGATIVE FOR PAIN WITH PALPATION OF TRAPEZIUS BILAT. SKIN:NORMAL, NO RASH. NEUROLOGIC EXAM:ALERT AND ORIENTED X 3, DTRS 1-2+ IN ALL 4 EXTREMITIES, DENIES UPPER EXTREMETIES SENSORY LOSS, DENIES LOWER EXTREMETIES SENSORY LOSS. DIAGNOSTIC: . WALKS WITH ASSIST OF CANE W SLOW ANTALGIC GAIT. ASSESSMENTS LUMBAGO WITH SCIATICA, LEFT SIDE - M54.42 (PRIMARY) CHRONIC PRESCRIPTION OPIATE USE - Z79.891 TREATMENT LUMBAGO WITH SCIATICA, LEFT SIDE CONTINUE BACLOFEN TABLET, 20 MG, 1 TABLET WITH FOOD OR MILK, ORALLY, EVERY 6 HRS REFILL MORPHINE SULFATE TABLET, 15 MG, 1 TABLET NEEDED, ORALLY, EVERY 6 HOURS MDD4, 30 DAY(S), 120, REFILLS 0 NOTES: ISTOP REGISTRY REVIEWED AND DEMNOSTRATES COMPLLIANCE. BRINGS IN MEDICATIONS WHICH IS APPROPRIATE FOR WHAT WAS DISPENSED. RECENT URINE TOXICOLOGY REVIEWED. NO UNAUTHORIZED MEDICATIONS. NO ILLICIT SUBSTANCES AND PRESCRIBED MEDICATIONS WERE PRESENT. , RISKS AND BENEFITS OF NARCOTIC/OPIOD MEDICATIONS WERE REVIEWED WITH PATIENT - THIS INCLUDES BUT IS NOT LIMITED TO RISK OF DEPENDANCE/DEVELOPMENT OF ADDICTION, MOOD DISTURBANCE AND DEPRESSION, OSTEOPOROSIS, HORMONAL AND LABIDAL CHANGES, RESPIRATORY DEPRESSION AND . PATIENT IS ADVISED NOT TO DRIVE WHILE ON THESE MEDICATIONS. PROCEDURE CODES FA211 ESTABILISHED PATIENT [facility] CHARGE DISPOSITION & COMMUNICATION FOLLOW UP 6 WEEKS ELECTRONICALLY SIGNED BY ROSALVA PATINO ON 10/29/2016 AT 03:56 PM EDT DISCLAIMER : THIS IS A VISIT SUMMARY EXTRACTED FROM THE [employer] CHART. IT IS NOT A COPY OF THE [employer] PROGRESS NOTE. GEETA
== END ==
LOC: M PAIN 11:00
PROVIDERS: ATTEND Nurse Practitioner Family
DX: M54.42 Lumbago with sciatica, left side (principal); Z79.891 Long term (current) use of opiate analgesic; Z79.01 Long term (current) use of anticoagulants; Z79.899 Other long term (current) drug therapy; F33.1 Major depressive disorder, recurrent, moderate; I10 Essential (primary) hypertension; E78.2 Mixed hyperlipidemia; F41.9 Anxiety disorder, unspecified; D68.59 Other primary thrombophilia; F17.210 Nicotine dependence, cigarettes, uncomplicated; Z88.1 Allergy status to other antibiotic agents; Z88.5 Allergy status to narcotic agent; Z88.8 Allergy status to other drugs, medicaments and biological substances

== ENCOUNTER → 2016-12-31 | Outpatient (CLI) | payer OTHER ==
--- NOTE | 2016-12-31 23:48 | ECWPNPC ---
PATIENT NAME: ADAM SMITH : 1975 GENDER: FEMALE VISIT DATE: 12/31/2016 DISCHARGE DATE: 12/31/16 1226 VISIT LOCKED DATE TIME: PHYSICIAN: ELISE JORDAN RESOURCE: ELISE JORDAN REASON FOR APPOINTMENT 1. BACK HISTORY OF PRESENT ILLNESS HISTORY OF PRESENT ILLNESS: HERE FOR F/U AND MANAGEMENT OF PERSISTENT LOW BACK PAIN.FEELS MORPHINE 15MG Q6H PRN IS HELPFUL.STATES SHE HAS INCREASED WALKING AND SPENDING LESS TIME IN BED.REPORTING LESS EPISODES OF URINARY LEAKAGE.REPORTS EPISODES OF DOUBLE VISION PAST 2 YEARS.REPORTING FREQUENT FALLS DUE TO LEFT LEG GIVING OUT.SAW FOR CONSULT ON November.STATES THEY HAVE ORDERED NCS BUT SHE CANT AFFORD COPAY.RATING PAIN VAS 7/10.STATES HER BACK BRACE WAS DENIED AND THEY ARENT APPROVING BACLOFEN.HAS HAD TREATMENT FAILURE ON TIZANIDINE,ROBAXIN AND FLEXERIL.WE WILL SEND IN MEDICAL NECESSITY FORM FOR BACLOFEN.WILL ATTEMPT A VARIANCE FOR BACK BRACE. PAIN THE PATIENT DESCRIBES THE PAIN... THE PATIENT DESCRIBES THE PAIN... FALL RISK SCREENING: SCREENING :NO FALLS IN THE PAST YEAR CURRENT MEDICATIONS TAKING WARFARIN SODIUM 1 MG TABLET 1-2 TABLET ORALLY ONCE A DAY TAKING WARFARIN SODIUM 5 MG TABLET 1 TABLET ORALLY ONCE A DAY TAKING VITAMIN D (CHOLECALCIFEROL) 1000 UNIT CAPSULE 1 CAPSULE ORALLY ONCE A DAY TAKING VITAMIN B COMPLEX - TABLET ORALLY TAKING SIMVASTATIN 40 MG TABLET 1 TABLET IN THE EVENING ORALLY ONCE A DAY TAKING VENLAFAXINE HCL ER 75 MG CAPSULE EXTENDED RELEASE 24 HOUR 1 CAPSULE WITH FOOD ORALLY ONCE A DAY TAKING MORPHINE SULFATE 15 MG TABLET 1 TABLET NEEDED ORALLY EVERY 6 HOURS MDD4 TAKING CLONAZEPAM 0.5 MG TABLET 1 TABLET ORALLY QHS MDD #1 TAKING ENALAPRIL MALEATE 5 MG TABLET 1 TABLET ORALLY ONCE A DAY TAKING CLONAZEPAM 1 MG TABLET 1 TABLET ORALLY THREE TIME DAILY MDD #3 TAKING GARCINIA CAMBOGIA-CHROMIUM 500-200 MG-MCG TABLET 2 TABS ORALLY DAILY NOT-TAKING PHYSICAL THERAPY EVALUATE AND TREAT PHYSICAL THERAPY DIRECTED 1-3X/WEEK DX CHRONIC NECK PAIN/CHRONIC BACK PAIN NOT-TAKING BACLOFEN 20 MG TABLET 1 TABLET WITH FOOD OR MILK ORALLY EVERY 6 HRS MEDICATION LIST REVIEWED AND RECONCILED WITH THE PATIENT PAST MEDICAL HISTORY CHRONIC BACK PAIN PROTEIN C DEFICIENCY ANXIETY DEPRESSION HYPERTENSION HYPERLIPIDEMIA ALLERGIES AUGMENTIN: NAUSEA/VOMITING: ALLERGY HYDROCODONE-ACETAMINOPHEN: HALLUCINATION: ALLERGY PERCOCET: ITCHING: ALLERGY METHADONE: DROWSINESS: ALLERGY NUCYNTA: DEPRESSION: ALLERGY FENTANYL: NAUSEA/VOMITING: ALLERGY LYRICA: LEG SWELLING: ALLERGY SURGICAL HISTORY NO SURGICAL HISTORY DOCUMENTED. HOSPITALIZATION/MAJOR DIAGNOSTIC PROCEDURE 2 HOSPITALIZATIONS DUE TO PE/ PROTEIN C DEFICIENCY 09/2016 REVIEW OF SYSTEMS CONSTITUTIONAL: ANY CHANGE IN YOUR MEDICAL CONDITION? NO . CHILLS NO . FEVER NO . INFECTION: DO YOU HAVE NEW INFECTIONS? NO . DO YOU HAVE HISTORY OF MRSA? NO . MUSCULOSKELETAL: ANY NEW PATTERNS OF PAIN OR NUMBNESS? NO . GASTROENTEROLOGY: ANY NEW CHANGE IN BOWEL CONTROL? NO . GENITOURINARY: ANY NEW CHANGE IN BLADDER CONTROL? NO . IS THERE A CHANCE YOU COULD BE ? NO . HEMATOLOGY/LYMPH: DO YOU TAKE ANY BLOOD THINNERS? (FOR EXAMPLE- COUMADIN, PLAVIX, AGGRENOX, PLATEL, PRADAXA, OR XARELTO) YES WARFARIN . WHEN WAS YOUR LAST DOSE? DATE: TIME: . NEUROLOGY: HAVE YOU FALLEN IN THE PAST 6 MONTHS? YES, THIS SPRING, PT STATES SHE FELL BECAUSE LEFT LEG GAVE OUT FOR LOSS OF BALANCE AND PAIN. PT FELL ON CARPET FLOOR, PT DENIES MAJOR INJURIES REQUIRING MEDICAL INTERVENTION . ANY NEW EXTREMITY NUMBNESS OR WEAKNESS? NO . CARDIOLOGY: DO YOU HAVE A PACEMAKER OR DEFIBRILLATOR? NO . RESPIRATORY: HAVE YOU BEEN SICK IN THE PAST WEEK? NO . FEVER NO . FLU LIKE SYMPTOMS? NO . COUGH NO . INTEGUMENTARY: DO YOU HAVE ANY RASHES OR OPEN SORES? NO . ALLERGIC/IMMUNO: ARE YOU ALLERGIC TO SHELLFISH OR IV DYE? NO . ANY NEW ALLERGIES? NO . PSYCHIATRIC: DO YOU HAVE THOUGHTS OF HURTING YOURSELF OR SOMEONE ELSE? NO . ARE YOU ABUSED, NEGLECTED, OR IN AN UNSAFE ENVIRONMENT? NO . ENDOCRINOLOGY: ARE YOU DIABETIC? NO . OTHER: DO YOU NEED ANY PRESCRIPTIONS? NO, PT STATES WORKMAN'S COMP HASN'T APPROVED BACLOFEN YET. PT STATES SHE HASN'T ATTENDED PT BECAUSE SHE CAN'T GET REFERAL TO PT IN [place].&NBSP;. IF YES, PLEASE LIST: &NBSP;&NBSP; ____&NBSP;. ANY NEW PROBLEMS WITH YOUR MEDICATIONS? &NBSP;&NBSP; NO&NBSP;. WHEN DID YOU LAST EAT? &NBSP;&NBSP; ____&NBSP;. WHEN DID YOU LAST DRINK? &NBSP;&NBSP; ____&NBSP;. WHAT DID YOU LAST DRINK? &NBSP;&NBSP; ____&NBSP;. NAME OF PERSON DRIVING YOU HOME? &NBSP;&NBSP; ____&NBSP;. DO YOU HAVE ANY OTHER QUESTIONS OR CONCERNS &NBSP;&NBSP; NO&NBSP;. REVIEWED BY: PROVIDER: ELISE BLACKWELL . VITAL SIGNS WT 203.4 LBS, HT 5'1", BMI 38.43 INDEX, BP 139/65 MM HG, HR 79 /MIN, RR 16 /MIN, TEMP 97.8 F, OXYGEN SAT % 95%, SAFE IN ENV? (Y/N) Y, NA INITIALS MI 11:41, REVIEWED BY: EM. EXAMINATION GENERAL EXAMINATION: HEENT:HEAD:, NORMOCEPHALIC, EYES:, EYES NORMAL, NOSE:, NOSE CLEAR, THROAT: NORMAL. LUNGS:LUNG SOUNDS ARE CLEAR. HEART:HEART RATE REGULAR. ABDOMEN:SOFT AND NOT TENDER, NON-DISTENDED. MUSCULOSKELETAL:*. LUMBAR SACRAL SPINEMUSCLE STRENGTH TESTING 5/5 BILATERAL, PALPATION: NEGATIVE FOR PAIN OVER L/S SPINE. NEGATIVE FOR PAIN OVER L/S PARSPINALS. THORACIC SPINENEGATIVE FOR PAIN WITH PALPATION OF THORACIC SPINE. NEGATIVE FOR PAIN WITH PALPATION OF THORACIC PARASPINAL. CERVICALNEGATIVE FOR PAIN WITH PALPATION OF CERVICAL SPINE. NEGATIVE FOR PAIN WITH PALPATION OF CERVICAL PARASPINALS. NEGATIVE FOR PAIN WITH PALPATION OF TRAPEZIUS BILAT. SKIN:NORMAL, NO RASH. NEUROLOGIC EXAM:ALERT AND ORIENTED X 3, DTRS 1-2+ IN ALL 4 EXTREMITIES, DENIES UPPER EXTREMETIES SENSORY LOSS, DENIES LOWER EXTREMETIES SENSORY LOSS. DIAGNOSTIC: . WALKS WITH ASSIST OF CANE W SLOW ANTALGIC GAIT. ASSESSMENTS LUMBAGO WITH SCIATICA, LEFT SIDE - M54.42 (PRIMARY) TREATMENT LUMBAGO WITH SCIATICA, LEFT SIDE REFILL MORPHINE SULFATE TABLET, 15 MG, 1 TABLET NEEDED, ORALLY, EVERY 6 HOURS MDD4, 30 DAY(S), 120, REFILLS 0 REFILL BACLOFEN TABLET, 20 MG, 1 TABLET WITH FOOD OR MILK, ORALLY, EVERY 6 HRS, 30 DAY(S), 120 TABLET, REFILLS 2 PROCEDURES PN WORKMANS' COMP OPINION IN YOUR OPINION, WAS THE INCIDENT THAT THE PATIENT DESCRIBED THE COMPETENT MEDICAL CAUSE OF THIS INJURY/ILLNESS? YES ARE THE PATIENT'S COMPLAINTS CONSISTENT WITH HIS/HER HISTORY OF THE INJURY/ILLNESS? YES IS THE PATIENT'S HISTORY OF THE INJURY/ILLNESS CONSISTENT WITH YOUR OBJECTIVE FINDING? YES WHAT IS THE PERCENTAGE OF TEMPORARY IMPAIRMENT? MARKED = 75% IS THE PATIENT WORKING? NO DOCTOR ON SITE: LASHON DINERO MD PROCEDURE CODES FA211 ESTABILISHED PATIENT [facility] CHARGE DISPOSITION & COMMUNICATION FOLLOW UP 4 WEEKS ELECTRONICALLY SIGNED BY ROSALVA PATINO ON 12/31/2016 AT 01:35 PM EDT DISCLAIMER : THIS IS A VISIT SUMMARY EXTRACTED FROM THE [employer] CHART. IT IS NOT A COPY OF THE [employer] PROGRESS NOTE. [employer]
== END ==
LOC: M PAIN 10:40
PROVIDERS: ATTEND Nurse Practitioner Family
DX: G89.29 Other chronic pain (principal); M54.42 Lumbago with sciatica, left side; F33.1 Major depressive disorder, recurrent, moderate; F41.9 Anxiety disorder, unspecified; D68.59 Other primary thrombophilia; I10 Essential (primary) hypertension; E78.2 Mixed hyperlipidemia; Z88.1 Allergy status to other antibiotic agents; Z88.5 Allergy status to narcotic agent; Z88.8 Allergy status to other drugs, medicaments and biological substances; Z79.01 Long term (current) use of anticoagulants; Z79.899 Other long term (current) drug therapy

== ENCOUNTER → 2017-01-05 | Outpatient (REF) | payer OTHER ==
[2017-01-05 16:59] LABS: ALBUMIN 3.7 GM/DL (3.2-5.2); ALBUMIN/GLOBULIN RATIO 1.09 (1.00-1.93); ALKALINE PHOSPHATASE 52 U/L (45-117); ALT/SGPT 20 U/L (12-78); ANION GAP 5 MEQ/L (8-16); AST/SGOT 13 U/L (15-37); BILIRUBIN,TOTAL 0.2 MG/DL (0.2-1.0); BLOOD UREA NITROGEN 11 MG/DL (7-18); CALCIUM LEVEL 8.9 MG/DL (8.5-10.1); CARBON DIOXIDE LEVEL 28 MEQ/L (21-32); CHLORIDE LEVEL 105 MEQ/L (98-107); CHOLESTEROL LEVEL 172 MG/DL (<200); CREATININE FOR GFR 0.66 MG/DL (0.55-1.02); GLOMERULAR FILTRATION RATE > 60.0 (>58); GLUCOSE, FASTING 97 MG/DL (70-105); POTASSIUM SERUM 4.4 MEQ/L (3.5-5.1); SODIUM LEVEL 138 MEQ/L (136-145); TOTAL PROTEIN 7.1 GM/DL (6.4-8.2); TRIGLYCERIDES LEVEL 187 MG/DL (<150)
== END ==
LOC: M SFHCCLAY 10:14
PROVIDERS: ATTEND Family Medicine
DX: I10 Essential (primary) hypertension (principal); E78.2 Mixed hyperlipidemia
CPT/HCPCS: 80053; 80061; G0463

== ENCOUNTER → 2017-01-28 | Outpatient (CLI) | payer OTHER ==
[~2017-01-28] MED LIST changes: -BACL-67 PO; +BACL1TAB9 PO; -CYCL5TA PO; +CYCL5TAB PO; -LYRI100C10 PO; +PREG100CA PO; -VENL75CA PO; +VENL75CA2 PO
--- NOTE | 2017-02-10 01:49 | ECWPNPC ---
PATIENT NAME: ADAM SMITH : 1975 GENDER: FEMALE VISIT DATE: 01/28/2017 DISCHARGE DATE: 01/28/17 1210 VISIT LOCKED DATE TIME: PHYSICIAN: ELISE JORDAN RESOURCE: ELISE JORDAN REASON FOR APPOINTMENT 1. BACK HISTORY OF PRESENT ILLNESS HISTORY OF PRESENT ILLNESS: HERE FOR F/U AND MANAGEMENT OF PERSISTENT LOW BACK PAIN.FEELS MORPHINE 15MG Q6H PRN IS HELPFUL.STATES SHE HAS INCREASED WALKING AND SPENDING LESS TIME IN BED.REPORTING LESS EPISODES OF DOUBLE VISION LATELY.REPORTING FREQUENT FALLS DUE TO LEFT LEG GIVING OUT.SAW FOR CONSULT ON November.STATES THEY HAVE ORDERED NCS BUT SHE CANT AFFORD COPAY.RATING PAIN VAS 6/10.STATES BACLOFEN 20MG QID HAS BEEN HELPFUL.HAS HAD TREATMENT FAILURE ON TIZANIDINE,ROBAXIN AND FLEXERIL.WE WILL SEND IN MEDICAL NECESSITY FORM FOR BACLOFEN.WILL ATTEMPT A VARIANCE FOR BACK BRACE. PAIN THE PATIENT DESCRIBES THE PAIN... THE PATIENT DESCRIBES THE PAIN... THE PATIENT DESCRIBES THE PAIN... FALL RISK SCREENING: SCREENING :NO FALLS IN THE PAST YEAR CURRENT MEDICATIONS TAKING WARFARIN SODIUM 1 MG TABLET 1-2 TABLET ORALLY ONCE A DAY TAKING WARFARIN SODIUM 5 MG TABLET 1 TABLET ORALLY ONCE A DAY TAKING SIMVASTATIN 40 MG TABLET 1 TABLET IN THE EVENING ORALLY ONCE A DAY TAKING VENLAFAXINE HCL ER 75 MG CAPSULE EXTENDED RELEASE 24 HOUR 1 CAPSULE WITH FOOD ORALLY ONCE A DAY TAKING GARCINIA CAMBOGIA-CHROMIUM 500-200 MG-MCG TABLET 2 TABS ORALLY DAILY TAKING BACLOFEN 20 MG TABLET 1 TABLET WITH FOOD OR MILK ORALLY EVERY 6 HRS TAKING ENALAPRIL MALEATE 5 MG TABLET 1 TABLET ORALLY ONCE A DAY TAKING MORPHINE SULFATE 15 MG TABLET 1 TABLET NEEDED ORALLY EVERY 6 HOURS MDD4 TAKING CLONAZEPAM 1 MG TABLET 1 TABLET ORALLY THREE TIME DAILY MDD #3 TAKING CLONAZEPAM 0.5 MG TABLET 1 TABLET ORALLY QHS MDD #1 NOT-TAKING VITAMIN D (CHOLECALCIFEROL) 1000 UNIT CAPSULE 1 CAPSULE ORALLY ONCE A DAY NOT-TAKING VITAMIN B COMPLEX - TABLET ORALLY MEDICATION LIST REVIEWED AND RECONCILED WITH THE PATIENT PAST MEDICAL HISTORY CHRONIC BACK PAIN PROTEIN C DEFICIENCY ANXIETY DEPRESSION HYPERTENSION HYPERLIPIDEMIA ALLERGIES AUGMENTIN: NAUSEA/VOMITING: ALLERGY HYDROCODONE-ACETAMINOPHEN: HALLUCINATION: ALLERGY PERCOCET: ITCHING: ALLERGY METHADONE: DROWSINESS: ALLERGY NUCYNTA: DEPRESSION: ALLERGY FENTANYL: NAUSEA/VOMITING: ALLERGY LYRICA: LEG SWELLING: ALLERGY REVIEW OF SYSTEMS REVIEWED BY: PROVIDER: ELISE BLACKWELL . CONSTITUTIONAL: ANY CHANGE IN YOUR MEDICAL CONDITION? NO . CHILLS NO . FEVER NO . INFECTION: DO YOU HAVE NEW INFECTIONS? NO . DO YOU HAVE HISTORY OF MRSA? NO . MUSCULOSKELETAL: ANY NEW PATTERNS OF PAIN OR NUMBNESS? NO . GASTROENTEROLOGY: ANY NEW CHANGE IN BOWEL CONTROL? NO . GENITOURINARY: ANY NEW CHANGE IN BLADDER CONTROL? NO . IS THERE A CHANCE YOU COULD BE ? NO . HEMATOLOGY/LYMPH: DO YOU TAKE ANY BLOOD THINNERS? (FOR EXAMPLE- COUMADIN, PLAVIX, AGGRENOX, PLATEL, PRADAXA, OR XARELTO) YES . WHEN WAS YOUR LAST DOSE? DATE: TIME: . NEUROLOGY: HAVE YOU FALLEN IN THE PAST 6 MONTHS? YES . ANY NEW EXTREMITY NUMBNESS OR WEAKNESS? NO . CARDIOLOGY: DO YOU HAVE A PACEMAKER OR DEFIBRILLATOR? NO . RESPIRATORY: HAVE YOU BEEN SICK IN THE PAST WEEK? NO . FEVER NO . FLU LIKE SYMPTOMS? NO . COUGH NO . INTEGUMENTARY: DO YOU HAVE ANY RASHES OR OPEN SORES? NO . ALLERGIC/IMMUNO: ARE YOU ALLERGIC TO SHELLFISH OR IV DYE? NO . ANY NEW ALLERGIES? NO . PSYCHIATRIC: DO YOU HAVE THOUGHTS OF HURTING YOURSELF OR SOMEONE ELSE? NO . ARE YOU ABUSED, NEGLECTED, OR IN AN UNSAFE ENVIRONMENT? NO . ENDOCRINOLOGY: ARE YOU DIABETIC? NO . OTHER: DO YOU NEED ANY PRESCRIPTIONS? NO . IF YES, PLEASE LIST: ____ . ANY NEW PROBLEMS WITH YOUR MEDICATIONS? NO . WHEN DID YOU LAST EAT? ____ . WHEN DID YOU LAST DRINK? ____ . WHAT DID YOU LAST DRINK? ____ . NAME OF PERSON DRIVING YOU HOME? ____ . DO YOU HAVE ANY OTHER QUESTIONS OR CONCERNS TRYING TO GET A REFERRAL FOR PT IN [place] . VITAL SIGNS WT 203.2 LBS, HT 5'1", BMI 38.39 INDEX, BP 132/85 MM HG, HR 83 /MIN, RR 16 /MIN, TEMP 98.9 F, OXYGEN SAT % 97%, NA INITIALS SC 11:18, REVIEWED BY: NL. EXAMINATION GENERAL EXAMINATION: HEENT:HEAD:, NORMOCEPHALIC, EYES:, EYES NORMAL, NOSE:, NOSE CLEAR, THROAT: NORMAL. LUNGS:LUNG SOUNDS ARE CLEAR. HEART:HEART RATE REGULAR. ABDOMEN:SOFT AND NOT TENDER, NON-DISTENDED. MUSCULOSKELETAL:*. LUMBAR SACRAL SPINEMUSCLE STRENGTH TESTING 5/5 BILATERAL, PALPATION: NEGATIVE FOR PAIN OVER L/S SPINE. NEGATIVE FOR PAIN OVER L/S PARSPINALS. THORACIC SPINENEGATIVE FOR PAIN WITH PALPATION OF THORACIC SPINE. NEGATIVE FOR PAIN WITH PALPATION OF THORACIC PARASPINAL. CERVICALNEGATIVE FOR PAIN WITH PALPATION OF CERVICAL SPINE. NEGATIVE FOR PAIN WITH PALPATION OF CERVICAL PARASPINALS. NEGATIVE FOR PAIN WITH PALPATION OF TRAPEZIUS BILAT. SKIN:NORMAL, NO RASH. NEUROLOGIC EXAM:ALERT AND ORIENTED X 3, DTRS 1-2+ IN ALL 4 EXTREMITIES, DENIES UPPER EXTREMETIES SENSORY LOSS, DENIES LOWER EXTREMETIES SENSORY LOSS. DIAGNOSTIC: . WALKS WITH ASSIST OF CANE W SLOW ANTALGIC GAIT. ASSESSMENTS LUMBAGO WITH SCIATICA, LEFT SIDE - M54.42 (PRIMARY) CHRONIC PRESCRIPTION OPIATE USE - Z79.891 TREATMENT LUMBAGO WITH SCIATICA, LEFT SIDE CONTINUE BACLOFEN TABLET, 20 MG, 1 TABLET WITH FOOD OR MILK, ORALLY, EVERY 6 HRS REFILL MORPHINE SULFATE TABLET, 15 MG, 1 TABLET NEEDED, ORALLY, EVERY 6 HOURS MDD4, 30 DAY(S), 120, REFILLS 0 NOTES: ISTOP REGISTRY REVIEWED AND DEMNOSTRATES COMPLLIANCE. BRINGS IN MEDICATIONS WHICH IS APPROPRIATE FOR WHAT WAS DISPENSED. RECENT URINE TOXICOLOGY REVIEWED. NO UNAUTHORIZED MEDICATIONS. NO ILLICIT SUBSTANCES AND PRESCRIBED MEDICATIONS WERE PRESENT. URINE TOX TODAY. PROCEDURES PN WORKMANS' COMP OPINION IN YOUR OPINION, WAS THE INCIDENT THAT THE PATIENT DESCRIBED THE COMPETENT MEDICAL CAUSE OF THIS INJURY/ILLNESS? YES ARE THE PATIENT'S COMPLAINTS CONSISTENT WITH HIS/HER HISTORY OF THE INJURY/ILLNESS? YES IS THE PATIENT'S HISTORY OF THE INJURY/ILLNESS CONSISTENT WITH YOUR OBJECTIVE FINDING? YES WHAT IS THE PERCENTAGE OF TEMPORARY IMPAIRMENT? MARKED = 75% IS THE PATIENT WORKING? NO DOCTOR ON SITE: LASHON DINERO MD PROCEDURE CODES FA211 ESTABILISHED PATIENT [facility] FACILITY CHARGE DISPOSITION & COMMUNICATION FOLLOW UP 4 WEEKS ELECTRONICALLY SIGNED BY ROSALVA PATINO ON 02/09/2017 AT 04:37 PM EDT DISCLAIMER : THIS IS A VISIT SUMMARY EXTRACTED FROM THE [employer] CHART. IT IS NOT A COPY OF THE [employer] PROGRESS NOTE. MTDD
== END ==
LOC: M PAIN 11:00
PROVIDERS: ATTEND Nurse Practitioner Family
DX: M54.42 Lumbago with sciatica, left side (principal); Z79.891 Long term (current) use of opiate analgesic; Z79.01 Long term (current) use of anticoagulants; Z79.899 Other long term (current) drug therapy; Z88.0 Allergy status to penicillin; Z88.8 Allergy status to other drugs, medicaments and biological substances; Z88.5 Allergy status to narcotic agent

== ENCOUNTER → 2017-03-18 | Outpatient (CLI) | payer OTHER ==
--- NOTE | 2017-04-15 01:27 | ECWPNPC ---
PATIENT NAME: ADAM SMITH : 1975 GENDER: FEMALE VISIT DATE: 03/18/2017 DISCHARGE DATE: 03/18/17 1203 VISIT LOCKED DATE TIME: PHYSICIAN: ELISE JORDAN RESOURCE: ELISE JORDAN REASON FOR APPOINTMENT 1. W/C, BACK HISTORY OF PRESENT ILLNESS HISTORY OF PRESENT ILLNESS: HERE FOR F/U AND MANAGEMENT OF PERSISTENT LOW BACK PAIN.FEELS MORPHINE 15MG Q6H PRN IS HELPFUL.STATES SHE HAS INCREASED WALKING AND SPENDING LESS TIME IN BED.SAW FOR CONSULT ON November.STATES THEY HAVE ORDERED NCS BUT SHE CANT AFFORD COPAY.RATING PAIN VAS 8/10.STATES BACLOFEN 20MG QID HAS BEEN HELPFUL.HAS HAD TREATMENT FAILURE ON TIZANIDINE,ROBAXIN AND FLEXERIL. PAIN THE PATIENT DESCRIBES THE PAIN... THE PATIENT DESCRIBES THE PAIN... THE PATIENT DESCRIBES THE PAIN... THE PATIENT DESCRIBES THE PAIN... FALL RISK SCREENING: SCREENING :NO FALLS IN THE PAST YEAR CURRENT MEDICATIONS TAKING SIMVASTATIN 40 MG TABLET 1 TABLET IN THE EVENING ORALLY ONCE A DAY TAKING VENLAFAXINE HCL ER 75 MG CAPSULE EXTENDED RELEASE 24 HOUR 1 CAPSULE WITH FOOD ORALLY ONCE A DAY TAKING GARCINIA CAMBOGIA-CHROMIUM 500-200 MG-MCG TABLET 2 TABS ORALLY DAILY TAKING ENALAPRIL MALEATE 5 MG TABLET 1 TABLET ORALLY ONCE A DAY TAKING BACLOFEN 20 MG TABLET 1 TABLET WITH FOOD OR MILK ORALLY EVERY 6 HRS TAKING WARFARIN SODIUM 5 MG TABLET TAKE ONE TABLET BY MOUTH ONCE A DAY TAKING WARFARIN SODIUM 2 MG TABLET TAKE 1-2 TABLETS BY MOUTH ONCE A DAY ORALLY TAKING MORPHINE SULFATE 15 MG TABLET 1 TABLET NEEDED ORALLY EVERY 6 HOURS MDD4 TAKING CLONAZEPAM 0.5 MG TABLET 1 TABLET ORALLY QHS MDD #1 TAKING CLONAZEPAM 1 MG TABLET 1 TABLET ORALLY THREE TIME DAILY MDD #3 NOT-TAKING VITAMIN D (CHOLECALCIFEROL) 1000 UNIT CAPSULE 1 CAPSULE ORALLY ONCE A DAY NOT-TAKING VITAMIN B COMPLEX - TABLET ORALLY MEDICATION LIST REVIEWED AND RECONCILED WITH THE PATIENT PAST MEDICAL HISTORY CHRONIC BACK PAIN PROTEIN C DEFICIENCY ANXIETY DEPRESSION HYPERTENSION HYPERLIPIDEMIA ALLERGIES AUGMENTIN: NAUSEA/VOMITING: ALLERGY HYDROCODONE-ACETAMINOPHEN: HALLUCINATION: ALLERGY PERCOCET: ITCHING: ALLERGY METHADONE: DROWSINESS: ALLERGY NUCYNTA: DEPRESSION: ALLERGY FENTANYL: NAUSEA/VOMITING: ALLERGY LYRICA: LEG SWELLING: ALLERGY REVIEW OF SYSTEMS REVIEWED BY: PROVIDER: ELISE BLACKWELL . CONSTITUTIONAL: ANY CHANGE IN YOUR MEDICAL CONDITION? NO . CHILLS NO . FEVER NO . INFECTION: DO YOU HAVE NEW INFECTIONS? NO . DO YOU HAVE HISTORY OF MRSA? NO . MUSCULOSKELETAL: ANY NEW PATTERNS OF PAIN OR NUMBNESS? NO . GASTROENTEROLOGY: ANY NEW CHANGE IN BOWEL CONTROL? NO . GENITOURINARY: ANY NEW CHANGE IN BLADDER CONTROL? NO . IS THERE A CHANCE YOU COULD BE ? NO . HEMATOLOGY/LYMPH: DO YOU TAKE ANY BLOOD THINNERS? (FOR EXAMPLE- COUMADIN, PLAVIX, AGGRENOX, PLATEL, PRADAXA, OR XARELTO) YES . WHEN WAS YOUR LAST DOSE? DATE: TIME: . NEUROLOGY: HAVE YOU FALLEN IN THE PAST 6 MONTHS? NO . ANY NEW EXTREMITY NUMBNESS OR WEAKNESS? NO . CARDIOLOGY: DO YOU HAVE A PACEMAKER OR DEFIBRILLATOR? NO . RESPIRATORY: HAVE YOU BEEN SICK IN THE PAST WEEK? NO . FEVER NO . FLU LIKE SYMPTOMS? NO . COUGH NO . INTEGUMENTARY: DO YOU HAVE ANY RASHES OR OPEN SORES? NO . ALLERGIC/IMMUNO: ARE YOU ALLERGIC TO SHELLFISH OR IV DYE? NO . ANY NEW ALLERGIES? NO . PSYCHIATRIC: DO YOU HAVE THOUGHTS OF HURTING YOURSELF OR SOMEONE ELSE? NO . ARE YOU ABUSED, NEGLECTED, OR IN AN UNSAFE ENVIRONMENT? NO . ENDOCRINOLOGY: ARE YOU DIABETIC? NO . OTHER: DO YOU NEED ANY PRESCRIPTIONS? YES . IF YES, PLEASE LIST: BACLOFEN , MORPHINE . ANY NEW PROBLEMS WITH YOUR MEDICATIONS? NO . WHEN DID YOU LAST EAT? ____ . WHEN DID YOU LAST DRINK? ____ . WHAT DID YOU LAST DRINK? ____ . NAME OF PERSON DRIVING YOU HOME? ____ . DO YOU HAVE ANY OTHER QUESTIONS OR CONCERNS NO . VITAL SIGNS WT 203.2 LBS, HT 5'1", BMI 38.39 INDEX, BP 113/72 MM HG, HR 93 /MIN, RR 16 /MIN, TEMP 96.2 F, OXYGEN SAT % 97%, NA INITIALS AW 1117, REVIEWED BY: NL. EXAMINATION GENERAL EXAMINATION: HEENT:HEAD:, NORMOCEPHALIC, EYES:, EYES NORMAL, NOSE:, NOSE CLEAR, THROAT: NORMAL. LUNGS:LUNG SOUNDS ARE CLEAR. HEART:HEART RATE REGULAR. ABDOMEN:SOFT AND NOT TENDER, NON-DISTENDED. MUSCULOSKELETAL:*. LUMBAR SACRAL SPINEMUSCLE STRENGTH TESTING 5/5 BILATERAL, PALPATION: NEGATIVE FOR PAIN OVER L/S SPINE. NEGATIVE FOR PAIN OVER L/S PARSPINALS. THORACIC SPINENEGATIVE FOR PAIN WITH PALPATION OF THORACIC SPINE. NEGATIVE FOR PAIN WITH PALPATION OF THORACIC PARASPINAL. CERVICALNEGATIVE FOR PAIN WITH PALPATION OF CERVICAL SPINE. NEGATIVE FOR PAIN WITH PALPATION OF CERVICAL PARASPINALS. NEGATIVE FOR PAIN WITH PALPATION OF TRAPEZIUS BILAT. SKIN:NORMAL, NO RASH. NEUROLOGIC EXAM:ALERT AND ORIENTED X 3, DTRS 1-2+ IN ALL 4 EXTREMITIES, DENIES UPPER EXTREMETIES SENSORY LOSS, DENIES LOWER EXTREMETIES SENSORY LOSS. DIAGNOSTIC: . WALKS WITH ASSIST OF CANE W SLOW ANTALGIC GAIT. ASSESSMENTS LUMBAGO WITH SCIATICA, LEFT SIDE - M54.42 (PRIMARY) CHRONIC PRESCRIPTION OPIATE USE - Z79.891 TREATMENT LUMBAGO WITH SCIATICA, LEFT SIDE REFILL BACLOFEN TABLET, 20 MG, 1 TABLET WITH FOOD OR MILK, ORALLY, EVERY 6 HRS, 30 DAY(S), 120 TABLET, REFILLS 2 REFILL MORPHINE SULFATE TABLET, 15 MG, 1 TABLET NEEDED, ORALLY, EVERY 6 HOURS MDD4, 30 DAY(S), 120, REFILLS 0 NOTES: ISTOP REGISTRY REVIEWED AND DEMNOSTRATES COMPLLIANCE. BRINGS IN MEDICATIONS WHICH IS APPROPRIATE FOR WHAT WAS DISPENSED. RECENT URINE TOXICOLOGY REVIEWED. NO UNAUTHORIZED MEDICATIONS. NO ILLICIT SUBSTANCES AND PRESCRIBED MEDICATIONS WERE PRESENT. , RISKS AND BENEFITS OF NARCOTIC/OPIOD MEDICATIONS WERE REVIEWED WITH PATIENT - THIS INCLUDES BUT IS NOT LIMITED TO RISK OF DEPENDANCE/DEVELOPMENT OF ADDICTION, MOOD DISTURBANCE AND DEPRESSION, OSTEOPOROSIS, HORMONAL AND LABIDAL CHANGES, RESPIRATORY DEPRESSION AND . PATIENT IS ADVISED NOT TO DRIVE WHILE ON THESE MEDICATIONS. PROCEDURES PN WORKMANS' COMP OPINION IN YOUR OPINION, WAS THE INCIDENT THAT THE PATIENT DESCRIBED THE COMPETENT MEDICAL CAUSE OF THIS INJURY/ILLNESS? YES ARE THE PATIENT'S COMPLAINTS CONSISTENT WITH HIS/HER HISTORY OF THE INJURY/ILLNESS? YES IS THE PATIENT'S HISTORY OF THE INJURY/ILLNESS CONSISTENT WITH YOUR OBJECTIVE FINDING? YES WHAT IS THE PERCENTAGE OF TEMPORARY IMPAIRMENT? MODERATE TO MARKED = 66.7% IS THE PATIENT WORKING? NO DOCTOR ON SITE: LASHON DINERO MD PROCEDURE CODES FA211 ESTABILISHED PATIENT [facility] CHARGE DISPOSITION & COMMUNICATION FOLLOW UP 2 MONTHS ELECTRONICALLY SIGNED BY ROSALVA PATINO ON 04/14/2017 AT 09:38 AM EDT DISCLAIMER : THIS IS A VISIT SUMMARY EXTRACTED FROM THE [employer] CHART. IT IS NOT A COPY OF THE [employer] PROGRESS NOTE. GEETA
== END ==
LOC: M PAIN 11:45
PROVIDERS: ATTEND Nurse Practitioner Family
DX: M54.42 Lumbago with sciatica, left side (principal); F33.1 Major depressive disorder, recurrent, moderate; F41.9 Anxiety disorder, unspecified; D68.59 Other primary thrombophilia; E78.2 Mixed hyperlipidemia; I10 Essential (primary) hypertension; R20.2 Paresthesia of skin; Z79.01 Long term (current) use of anticoagulants; Z79.891 Long term (current) use of opiate analgesic; Z79.899 Other long term (current) drug therapy; Z88.5 Allergy status to narcotic agent; Z88.1 Allergy status to other antibiotic agents; Z88.8 Allergy status to other drugs, medicaments and biological substances

== ENCOUNTER → 2017-05-20 | Outpatient (CLI) | payer OTHER ==
--- NOTE | 2017-06-17 02:22 | ECWPNPC ---
PATIENT NAME: ADAM SMITH : 1975 GENDER: FEMALE VISIT DATE: 05/20/2017 DISCHARGE DATE: 05/20/17 1029 VISIT LOCKED DATE TIME: PHYSICIAN: ELISE JORDAN RESOURCE: ELISE JORDAN REASON FOR APPOINTMENT 1. W/C HISTORY OF PRESENT ILLNESS HISTORY OF PRESENT ILLNESS: HERE FOR F/U AND MANAGEMENT OF PERSISTENT LOW BACK PAIN.FEELS MORPHINE 15MG Q6H PRN IS HELPFUL.STATES SHE HAS INCREASED WALKING AND SPENDING LESS TIME IN BED.RATING PAIN VAS 6/10.STATES BACLOFEN 20MG QID HAS BEEN HELPFUL.HAS HAD TREATMENT FAILURE ON TIZANIDINE,ROBAXIN AND FLEXERIL.CURRENT CHRONIC PAIN MEDICATION IS BEING USED TO TREAT WORK RELATED INJURY IN 2008. PAIN THE PATIENT DESCRIBES THE PAIN... THE PATIENT DESCRIBES THE PAIN... THE PATIENT DESCRIBES THE PAIN... THE PATIENT DESCRIBES THE PAIN... THE PATIENT DESCRIBES THE PAIN... FALL RISK SCREENING: SCREENING :NO FALLS IN THE PAST YEAR CURRENT MEDICATIONS TAKING SIMVASTATIN 40 MG TABLET 1 TABLET IN THE EVENING ORALLY ONCE A DAY TAKING GARCINIA CAMBOGIA-CHROMIUM 500-200 MG-MCG TABLET 2 TABS ORALLY DAILY TAKING ENALAPRIL MALEATE 5 MG TABLET 1 TABLET ORALLY ONCE A DAY TAKING WARFARIN SODIUM 5 MG TABLET TAKE ONE TABLET BY MOUTH ONCE A DAY TAKING WARFARIN SODIUM 2 MG TABLET TAKE 1-2 TABLETS BY MOUTH ONCE A DAY ORALLY DIRECTED TAKING BACLOFEN 20 MG TABLET 1 TABLET WITH FOOD OR MILK ORALLY EVERY 6 HRS TAKING VENLAFAXINE HCL ER 75 MG CAPSULE EXTENDED RELEASE 24 HOUR 1 CAPSULE WITH FOOD ORALLY ONCE A DAY TAKING CLONAZEPAM 0.5 MG TABLET 1 TABLET ORALLY QHS MDD #1 TAKING CLONAZEPAM 1 MG TABLET 1 TABLET ORALLY THREE TIME DAILY MDD #3 TAKING MORPHINE SULFATE 15 MG TABLET 1 TABLET NEEDED ORALLY EVERY 6 HOURS MDD4 TAKING HAIR SKIN AND NAILS FORMULA - TABLET 3 TABLETS ORALLY DAILY NOT-TAKING BIOTIN 5 MG CAPSULE 1 CAPSULE ORALLY ONCE A DAY NOT-TAKING SIMVASTATIN 40 MG TABLET TAKE ONE TABLET BY MOUTH EVERY EVENING NOT-TAKING VITAMIN D (CHOLECALCIFEROL) 1000 UNIT CAPSULE 1 CAPSULE ORALLY ONCE A DAY NOT-TAKING VITAMIN B COMPLEX - TABLET ORALLY MEDICATION LIST REVIEWED AND RECONCILED WITH THE PATIENT PAST MEDICAL HISTORY CHRONIC BACK PAIN PROTEIN C DEFICIENCY ANXIETY DEPRESSION HYPERTENSION HYPERLIPIDEMIA ALLERGIES AUGMENTIN: NAUSEA/VOMITING: ALLERGY HYDROCODONE-ACETAMINOPHEN: HALLUCINATION: ALLERGY PERCOCET: ITCHING: ALLERGY METHADONE: DROWSINESS: ALLERGY NUCYNTA: DEPRESSION: ALLERGY FENTANYL: NAUSEA/VOMITING: ALLERGY LYRICA: LEG SWELLING: ALLERGY SOCIAL HISTORY GENERAL: TOBACCO USE ARE YOU A:CURRENT SMOKER HOW MANY CIGARETTES A DAY DO YOU SMOKE?11-20 HOW SOON AFTER YOU WAKE UP DO YOU SMOKE YOUR FIRST CIGARETTE?6-30 MIN HOW OFTEN DO YOU SMOKE CIGARETTES?EVERY DAY PATIENT COUNSELED ON THE DANGERS OF TOBACCO USE AND URGED TO QUIT:04/10/2017 ARE YOU INTERESTED IN QUITTING?THINKING ABOUT QUITTING COUNSELED THE PATIENT ON SMOKING CESSATION, EDUCATION [id number]/08/2017 ASSIST (PHARMACOTHERAPY AND COUNSELING)ADVISED TO CALL [facility] QUITLINE 1(090) [employer]. SMOKING CESSATION INFORMATION GIVEN04/10/2017 ALCOHOL SCREENING DID YOU HAVE A DRINK CONTAINING ALCOHOL IN THE PAST YEAR?NO POINTS0 INTERPRETATIONNEGATIVE RECREATIONAL DRUG USE DRUG USE?NO CAFFEINE CAFFEINE USE?YES HOW OFTEN AND HOW MUCH? 2 COFFEES DAILY HIV / HEP-C SCREENING HIV TEST OFFERED TO PATIENT:YES DATE OFFERED:01/05/2017 TEST ACCEPTED:NO REASON:PATIENT DECLINED HEP-C TEST OFFERED TO PATIENT:NO OCCUPATION: DISABLED. DIET: REGULAR. EXERCISE: NO REGULAR EXERCISE. MARITAL STATUS: SINGLE. OTHERS AT HOME: FATHER. 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 LANGUAGE [employer]OREAN. 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 PSYCHOLOGICAL HX TREATMENT NO . PAIN CLINIC PFS, CLERGY, PUBLIC HEALTH REFERRALS PFS REFERRAL NEEDED?NO CLERGY REFERRAL NEEDED?NO PUBLIC HEALTH REFERRAL NEEDED?NO HAS THE PATIENT BEEN EDUCATED REGARDING HIS/HER PLAN OF CARE?YES HAS THE PATIENT BEEN EDUCATED REGARDING PAIN, THE RISK FOR PAIN, THE IMPORTANCE OF EFFECTIVE PAIN MANAGEMENT, AND THE PAIN ASSESSMENT PROCESS?YES PATIENT: ____. ADVANCE DIRECTIVES HEALTH CARE PROXY? NO, POWER OF INVESTIGATION MANAGER? NO. REVIEW OF SYSTEMS REVIEWED BY: PROVIDER: ELISE BLACKWELL . CONSTITUTIONAL: ANY CHANGE IN YOUR MEDICAL CONDITION? NO . CHILLS NO . FEVER NO . INFECTION: DO YOU HAVE NEW INFECTIONS? NO . DO YOU HAVE HISTORY OF MRSA? NO . MUSCULOSKELETAL: ANY NEW PATTERNS OF PAIN OR NUMBNESS? NO . GASTROENTEROLOGY: ANY NEW CHANGE IN BOWEL CONTROL? NO . GENITOURINARY: ANY NEW CHANGE IN BLADDER CONTROL? NO . IS THERE A CHANCE YOU COULD BE ? NO . HEMATOLOGY/LYMPH: DO YOU TAKE ANY BLOOD THINNERS? (FOR EXAMPLE- COUMADIN, PLAVIX, AGGRENOX, PLATEL, PRADAXA, OR XARELTO) YES, COUMADIN . WHEN WAS YOUR LAST DOSE? DATE: TIME: . NEUROLOGY: HAVE YOU FALLEN IN THE PAST 6 MONTHS? YES, LATE WINTER OR EARLY THIS SPRING . ANY NEW EXTREMITY NUMBNESS OR WEAKNESS? NO . CARDIOLOGY: DO YOU HAVE A PACEMAKER OR DEFIBRILLATOR? NO . RESPIRATORY: HAVE YOU BEEN SICK IN THE PAST WEEK? NO . FEVER NO . FLU LIKE SYMPTOMS? NO . COUGH NO . INTEGUMENTARY: DO YOU HAVE ANY RASHES OR OPEN SORES? NO . ALLERGIC/IMMUNO: ARE YOU ALLERGIC TO SHELLFISH OR IV DYE? NO . ANY NEW ALLERGIES? NO . PSYCHIATRIC: DO YOU HAVE THOUGHTS OF HURTING YOURSELF OR SOMEONE ELSE? NO . ARE YOU ABUSED, NEGLECTED, OR IN AN UNSAFE ENVIRONMENT? NO . ENDOCRINOLOGY: ARE YOU DIABETIC? NO . OTHER: DO YOU NEED ANY PRESCRIPTIONS? NO . IF YES, PLEASE LIST: ____ . ANY NEW PROBLEMS WITH YOUR MEDICATIONS? NO . WHEN DID YOU LAST EAT? ____ . WHEN DID YOU LAST DRINK? ____ . WHAT DID YOU LAST DRINK? ____ . NAME OF PERSON DRIVING YOU HOME? ____ . DO YOU HAVE ANY OTHER QUESTIONS OR CONCERNS NO . VITAL SIGNS WT 206 LBS, HT 5'1", BMI 38.92 INDEX, BP 122/83 MM HG, HR 80 /MIN, RR 18 /MIN, TEMP 98.6 F, OXYGEN SAT % 98%, SAFE IN ENV? (Y/N) YES, NA INITIALS AW 0944, REVIEWED BY: CS. EXAMINATION GENERAL EXAMINATION: HEENT:HEAD:, NORMOCEPHALIC, EYES:, EYES NORMAL, NOSE:, NOSE CLEAR, THROAT: NORMAL. LUNGS:LUNG SOUNDS ARE CLEAR. HEART:HEART RATE REGULAR. ABDOMEN:SOFT AND NOT TENDER, NON-DISTENDED. MUSCULOSKELETAL:*. LUMBAR SACRAL SPINEMUSCLE STRENGTH TESTING 5/5 BILATERAL, PALPATION: NEGATIVE FOR PAIN OVER L/S SPINE. NEGATIVE FOR PAIN OVER L/S PARSPINALS. THORACIC SPINENEGATIVE FOR PAIN WITH PALPATION OF THORACIC SPINE. NEGATIVE FOR PAIN WITH PALPATION OF THORACIC PARASPINAL. CERVICALNEGATIVE FOR PAIN WITH PALPATION OF CERVICAL SPINE. NEGATIVE FOR PAIN WITH PALPATION OF CERVICAL PARASPINALS. NEGATIVE FOR PAIN WITH PALPATION OF TRAPEZIUS BILAT. SKIN:NORMAL, NO RASH. NEUROLOGIC EXAM:ALERT AND ORIENTED X 3, DTRS 1-2+ IN ALL 4 EXTREMITIES, DENIES UPPER EXTREMETIES SENSORY LOSS, DENIES LOWER EXTREMETIES SENSORY LOSS. DIAGNOSTIC: . WALKS WITH ASSIST OF CANE W SLOW ANTALGIC GAIT. ASSESSMENTS LUMBAGO WITH SCIATICA, LEFT SIDE - M54.42 (PRIMARY) TREATMENT LUMBAGO WITH SCIATICA, LEFT SIDE CONTINUE BACLOFEN TABLET, 20 MG, 1 TABLET WITH FOOD OR MILK, ORALLY, EVERY 6 HRS WORKMANS COMP, 30 DAY(S), REFILLS 2 REFILL MORPHINE SULFATE TABLET, 15 MG, 1 TABLET NEEDED, ORALLY, EVERY 6 HOURS MDD4, 30 DAY(S), 120, REFILLS 0 NOTES: ISTOP REGISTRY REVIEWED [id number] DEMNOSTRATES COMPLLIANCE. BRINGS IN MEDICATIONS WHICH IS APPROPRIATE FOR WHAT WAS DISPENSED. RECENT URINE TOXICOLOGY REVIEWED. NO UNAUTHORIZED MEDICATIONS. NO ILLICIT SUBSTANCES AND PRESCRIBED MEDICATIONS WERE PRESENT. , RISKS AND BENEFITS OF NARCOTIC/OPIOD MEDICATIONS WERE REVIEWED WITH PATIENT - THIS INCLUDES BUT IS NOT LIMITED TO RISK OF DEPENDANCE/DEVELOPMENT OF ADDICTION, MOOD DISTURBANCE AND DEPRESSION, OSTEOPOROSIS, HORMONAL AND LABIDAL CHANGES, RESPIRATORY DEPRESSION AND . PATIENT IS ADVISED NOT TO DRIVE WHILE ON THESE MEDICATIONS. PROCEDURES PN WORKMANS' COMP OPINION IN YOUR OPINION, WAS THE INCIDENT THAT THE PATIENT DESCRIBED THE COMPETENT MEDICAL CAUSE OF THIS INJURY/ILLNESS? YES ARE THE PATIENT'S COMPLAINTS CONSISTENT WITH HIS/HER HISTORY OF THE INJURY/ILLNESS? YES IS THE PATIENT'S HISTORY OF THE INJURY/ILLNESS CONSISTENT WITH YOUR OBJECTIVE FINDING? YES WHAT IS THE PERCENTAGE OF TEMPORARY IMPAIRMENT? MARKED = 75% IS THE PATIENT WORKING? NO DOCTOR ON SITE: LASHON DINERO MD PROCEDURE CODES FA211 ESTABILISHED PATIENT [facility] FACILITY CHARGE DISPOSITION & COMMUNICATION FOLLOW UP 2 MONTHS ELECTRONICALLY SIGNED BY ROSALVA PATINO ON 06/16/2017 AT 06:59 PM EST DISCLAIMER : THIS IS A VISIT SUMMARY EXTRACTED FROM THE [employer] CHART. IT IS NOT A COPY OF THE [employer] PROGRESS NOTE. GEETA
== END ==
LOC: M PAIN 09:45
PROVIDERS: ATTEND Nurse Practitioner Family
DX: M54.42 Lumbago with sciatica, left side (principal); G89.29 Other chronic pain; I10 Essential (primary) hypertension; E78.5 Hyperlipidemia, unspecified; F41.9 Anxiety disorder, unspecified; F32.9 Major depressive disorder, single episode, unspecified; F17.210 Nicotine dependence, cigarettes, uncomplicated; Z79.891 Long term (current) use of opiate analgesic; Z79.899 Other long term (current) drug therapy; Z79.01 Long term (current) use of anticoagulants; Z88.5 Allergy status to narcotic agent; Z88.8 Allergy status to other drugs, medicaments and biological substances; Z88.1 Allergy status to other antibiotic agents

== ENCOUNTER → 2017-07-22 | Outpatient (CLI) | payer OTHER | LOC: M PAIN 11:15 | DX: M54.42 Lumbago with sciatica, left side (principal); D68.59 Other primary thrombophilia; F41.9 Anxiety disorder, unspecified; F32.9 Major depressive disorder, single episode, unspecified; I10 Essential (primary) hypertension; E78.5 Hyperlipidemia, unspecified; Z88.1 Allergy status to other antibiotic agents; Z88.5 Allergy status to narcotic agent; Z88.8 Allergy status to other drugs, medicaments and biological substances; Z79.891 Long term (current) use of opiate analgesic; Z79.01 Long term (current) use of anticoagulants; Z79.899 Other long term (current) drug therapy; Z87.891 Personal history of nicotine dependence | CPT/HCPCS: G0463 ==

== ENCOUNTER → 2017-08-13 | Outpatient (REF) | payer OTHER ==
[2017-08-13 19:29] LABS: BASO # 0.1 10^3/uL (0.0-0.2); BASO % 1.4 % (0.0-1.0); EOS # 0.5 10^3/uL (0.0-0.50); EOS % 4.8 % (0.0-3.0); HEMATOCRIT 39.2 % (36.0-47.0); HEMOGLOBIN 12.9 g/dl (12.0-16.0); IMMATURE GRANULOCYTE % 0.4 % (0-0); LYMPH # 3.8 10^3/uL (1.5-4.5); LYMPH % 40.9 % (24.0-44.0); MEAN CORPUSCULAR HEMOGLOBIN 30.6 pg (27.0-33.0); MEAN CORPUSCULAR HGB CONC 32.9 g/dl (32.0-36.5); MEAN CORPUSCULAR VOLUME 92.9 fl (80.0-96.0); MONO # 0.7 10^3/uL (0.0-0.8); MONO % 7.8 % (0.0-5.0); NEUTROPHILS # 4.2 10^3/uL (1.8-7.7); NEUTROPHILS % 44.7 % (36.0-66.0); PLATELET COUNT, AUTOMATED 313 10^3/uL (150-450); RED BLOOD COUNT 4.22 10^6/uL (4.00-5.40); RED CELL DISTRIBUTION WIDTH 11.9 % (11.5-14.5); WHITE BLOOD COUNT 9.3 10^3/uL (4.0-10.0)
[2017-08-13 19:41] LABS: ALBUMIN 3.9 GM/DL (3.2-5.2); ALBUMIN/GLOBULIN RATIO 1.26 (1.00-1.93); ALKALINE PHOSPHATASE 53 U/L (45-117); ALT/SGPT 22 U/L (12-78); ANION GAP 4 MEQ/L (8-16); AST/SGOT 15 U/L (7-37); BILIRUBIN,TOTAL 0.2 MG/DL (0.2-1.0); BLOOD UREA NITROGEN 6 MG/DL (7-18); CALCIUM LEVEL 9.2 MG/DL (8.5-10.1); CARBON DIOXIDE LEVEL 32 MEQ/L (21-32); CHLORIDE LEVEL 104 MEQ/L (98-107); CREATININE FOR GFR 0.69 MG/DL (0.55-1.02); GLOMERULAR FILTRATION RATE > 60.0 (>58); GLUCOSE, FASTING 98 MG/DL (70-105); POTASSIUM SERUM 4.5 MEQ/L (3.5-5.1); SODIUM LEVEL 140 MEQ/L (136-145)
== END ==
LOC: M SFHCCLAY 09:47
DX: I10 Essential (primary) hypertension (principal); Z23 Encounter for immunization
CPT/HCPCS: 80053

== ENCOUNTER → 2017-09-22 | Outpatient (CLI) | payer OTHER | LOC: M PAIN 13:45 | DX: M54.42 Lumbago with sciatica, left side (principal); I10 Essential (primary) hypertension; E78.5 Hyperlipidemia, unspecified; F41.9 Anxiety disorder, unspecified; F32.9 Major depressive disorder, single episode, unspecified; Z79.899 Other long term (current) drug therapy; Z88.5 Allergy status to narcotic agent; Z88.8 Allergy status to other drugs, medicaments and biological substances; Z87.891 Personal history of nicotine dependence | CPT/HCPCS: G0463 ==

== ENCOUNTER → 2019-10-21 | Outpatient (REF) | payer MEDICARE, OTHER ==
[~2019-10-21] MED LIST changes: -CLON0.5T PO; +CLON0.5T2 PO; -CLON1TAB PO; +CLON1TAB8 PO; +CYAN100049 PO; -MORP-38 PO; +MORP-69 PO; -SIMV40TA2 PO; +SIMV40TA20 PO; -VITA10002 PO
[2019-10-21 16:29] LABS: INR 1.72; PROTHROMBIN TIME 19.9 SECONDS (11.8-14.0)
== END ==
LOC: M LABDRAWC 15:47
PROVIDERS: ATTEND Internal Medicine
DX: D68.59 Other primary thrombophilia (principal)

== ENCOUNTER 2019-12-28 13:08 | Emergency (ER) | payer MEDICARE ==
[2019-12-28] MEDS ORDERED: FLUTISP (13:52)
[2019-12-28] MEDS ORDERED: TOPA1TAB PO (13:52)
[2019-12-28] MEDS ORDERED: WARF-23 (13:52)
[2019-12-28] MEDS ORDERED: VENL150C43 (13:52)
[2019-12-28 14:05] LABS: BASO # 0.1 10^3/uL (0.0-0.2); BASO % 1.9 % (0.0-1.0); EOS # 0.2 10^3/uL (0.0-0.5); EOS % 3.9 % (0.0-3.0); HEMATOCRIT 37.9 % (36.0-47.0); HEMOGLOBIN 12.8 g/dl (12.0-15.5); LYMPH # 1.6 10^3/uL (1.5-5.0); MEAN CORPUSCULAR HEMOGLOBIN 31.7 pg (27.0-33.0); MEAN CORPUSCULAR HGB CONC 33.8 g/dl (32.0-36.5); MEAN CORPUSCULAR VOLUME 93.8 fl (80.0-96.0); MONO # 0.4 10^3/uL (0.0-0.8); MONO % 6.3 % (0.0-5.0); NEUTROPHILS # 3.8 10^3/uL (1.5-8.5); NEUTROPHILS % 61.6 % (36.0-66.0); PLATELET COUNT, AUTOMATED 266 10^3/uL (150-450); RED BLOOD COUNT 4.04 10^6/uL (4.00-5.40); WHITE BLOOD COUNT 6.2 10^3/uL (4.0-10.0)
[2019-12-28 14:33] LABS: HCG, SERUM QUALITATIVE NEGATIVE (NEGATIVE)
[2019-12-28 14:37] LABS: ALBUMIN 3.5 GM/DL (3.2-5.2); ALT/SGPT 22 U/L (12-78); BILIRUBIN,DIRECT < 0.1 MG/DL (0.0-0.2); BILIRUBIN,TOTAL 0.2 MG/DL (0.2-1.0); BLOOD UREA NITROGEN 8 MG/DL (7-18); CALCIUM LEVEL 8.6 MG/DL (8.5-10.1); CARBON DIOXIDE LEVEL 29 MEQ/L (21-32); CHLORIDE LEVEL 110 MEQ/L (98-107); CK-MB VALUE MASS < 1.0 NG/ML (<3.6); CPK CREATINE PHOSPHOKINASE 34 U/L (26-192); CREATININE FOR GFR 0.68 MG/DL (0.55-1.30); GLOMERULAR FILTRATION RATE > 60.0 (>58); GLUCOSE, FASTING 80 MG/DL (70-100); MB/CK RELATIVE INDEX 2.94 (< OR =4); NT-PRO BNP 80 PG/ML (<125); POTASSIUM SERUM 4.6 MEQ/L (3.5-5.1); SODIUM LEVEL 140 MEQ/L (136-145); THYROID STIMULATING HORMONE 0.691 uIU/ML (0.358-3.740); TOTAL PROTEIN 6.4 GM/DL (6.4-8.2); TROPONIN I < 0.02 NG/ML (< 0.10)
[2019-12-28] MEDS ORDERED: NS 1,000 ML IV ONE (15:00)
--- NOTE | 2019-12-28 15:18 | REP ---
PORTABLE CHEST X-RAY: Single view. HISTORY: Dyspnea and cough. COMPARISON CHEST X-RAY: September 08, 2016. FINDINGS: There is a marked levoconvex scoliotic curve. This is more pronounced than on the prior study. No other bony abnormality is seen. The lungs are well inflated and clear. The pleural angles are sharp. Cardiac silhouette appears enlarged. This is more prominent on the prior study as well. Pulmonary vasculature is not increased. IMPRESSION: Evidence of cardiac enlargement. Severe scoliosis. Scoliosis is more pronounced and the cardiac enlargement appears to be new when compared with the September 2016 prior study. Electronically Signed by Eitan Bran MD 12/28/2019 03:29 P
[2019-12-28 17:00] VITALS: BP 104/62
== END 2019-12-28 17:41 | disposition home or self-care (01) ==
LOC: EDBD 13:08 → M ED 13:08
DX: B34.9 Viral infection, unspecified (principal); I10 Essential (primary) hypertension; E78.5 Hyperlipidemia, unspecified; D68.59 Other primary thrombophilia; F41.9 Anxiety disorder, unspecified; F32.9 Major depressive disorder, single episode, unspecified; Z79.899 Other long term (current) drug therapy; Z88.6 Allergy status to analgesic agent; Z88.5 Allergy status to narcotic agent; Z88.8 Allergy status to other drugs, medicaments and biological substances
CPT/HCPCS: 36415; 71045; 80048; 80076; 82550; 82553; 83880; 84443; 84484; 84703; 85025; 87040; 87077; 87186; 87486; 87581; 87633; 87798; 94760; 99284; U0003

== ENCOUNTER → 2020-03-26 | Outpatient (REF) | payer MEDICARE ==
[~2020-03-26] MED LIST changes: +ENAL-36 PO; -ENAL10TA2 PO; +FLUTISP; +TOPA1TAB PO; +VENL150C43; +WARF-23
[2020-03-26 18:07] LABS: INR 1.17; PROTHROMBIN TIME 15.2 SECONDS (11.8-14.0)
== END ==
LOC: M LABDRAWC 17:06
PROVIDERS: ATTEND Family Medicine
DX: Z51.81 Encounter for therapeutic drug level monitoring (principal)

== ENCOUNTER → 2020-04-05 | Outpatient (REF) | payer MEDICARE ==
[2020-04-05 20:05] LABS: INR 1.9; PROTHROMBIN TIME 22.2 SECONDS (11.8-14.0)
== END ==
LOC: M LABDRAWC 19:04
PROVIDERS: ATTEND Family Medicine
DX: Z51.81 Encounter for therapeutic drug level monitoring (principal)

== ENCOUNTER → 2020-04-20 | Outpatient (REF) | payer MEDICARE ==
[2020-04-20 17:32] LABS: INR 1.77
== END ==
LOC: M LABDRAWC 16:06
PROVIDERS: ATTEND Family Medicine
DX: Z51.81 Encounter for therapeutic drug level monitoring (principal); Z79.899 Other long term (current) drug therapy

== ENCOUNTER → 2020-05-16 | Outpatient (REF) | payer MEDICARE ==
[2020-05-16 16:29] LABS: INR 3.33; PROTHROMBIN TIME 34.6 SECONDS (12.5-14.3)
== END ==
LOC: M LABDRAWC 15:51
PROVIDERS: ATTEND Family Medicine
DX: Z51.81 Encounter for therapeutic drug level monitoring (principal)

== ENCOUNTER → 2020-07-02 | Outpatient (REF) | payer MEDICARE ==
[2020-07-02 18:22] LABS: INR 1.23; PROTHROMBIN TIME 15.8 SECONDS (12.5-14.3)
== END ==
LOC: M LABDRAWC 15:51
PROVIDERS: ATTEND Family Medicine
DX: Z51.81 Encounter for therapeutic drug level monitoring (principal)

== ENCOUNTER → 2020-08-23 | Outpatient (REF) | payer MEDICARE ==
[2020-08-23 16:47] LABS: INR 2.3; PROTHROMBIN TIME 25.8 SECONDS (12.5-14.3)
== END ==
LOC: M LAB REF 15:41 → M LABDRAWC 15:41
PROVIDERS: ATTEND Family Medicine
DX: Z51.81 Encounter for therapeutic drug level monitoring (principal)

== ENCOUNTER → 2020-10-24 | Outpatient (REF) | payer MEDICARE ==
[~2020-10-24] MED LIST changes: -PEG1POW PO; +POLY17PO18 PO
[2020-10-24 12:01] LABS: INR 1.22; PROTHROMBIN TIME 15.7 SECONDS (12.5-14.3)
== END ==
LOC: M LABDRAWC 11:26
PROVIDERS: ATTEND Family Medicine
DX: Z51.81 Encounter for therapeutic drug level monitoring (principal)

== ENCOUNTER → 2020-11-14 | Outpatient (REF) | payer MEDICARE ==
[2020-11-14 13:52] LABS: INR 2.58; PROTHROMBIN TIME 28.3 SECONDS (12.5-14.3)
== END ==
LOC: M LABDRAWC 12:00 → M LAB REF 12:00
PROVIDERS: ATTEND Family Medicine
DX: D68.59 Other primary thrombophilia (principal)

== ENCOUNTER → 2020-12-12 | Outpatient (REF) | payer MEDICARE ==
[2020-12-12 11:50] LABS: INR 1.81; PROTHROMBIN TIME 21.4 SECONDS (12.5-14.3)
== END ==
LOC: M LABDRAWC 11:23
PROVIDERS: ATTEND Family Medicine
DX: Z51.81 Encounter for therapeutic drug level monitoring (principal)